=== PATIENT | male | born 1965 | race Two or more races ===

== ENCOUNTER 2016-10-29 08:13 | Inpatient (IN) | payer MEDICAID ==
[2016-10-29] VITALS (7 sets, daily range): BP systolic 116–139; BP diastolic 81–91
[~2016-10-29] VITALS: Ht 165.1 cm; Wt 54.4 kg
[2016-10-29] MEDS ORDERED: UNOBMED (08:15)
[2016-10-29] MEDS ORDERED: Tubing IV Cassette IV ONE (08:28)
[2016-10-29] MEDS ORDERED: DiphenhydrAMINE 50mg/ml Inj IM ONE (08:30)
[2016-10-29] MEDS ORDERED: Haloperidol 5mg/ml Inj IM ONE (08:30)
[2016-10-29] MEDS ORDERED: LORazepam Inj 2mg/ml 1ml IM ONE (08:30)
--- NOTE | 2016-10-29 10:12 | Emergency Room Report ---
History of Present Illness General Chief Complaint: Altered Level of Consciousness Source: EMS Present Illness HPI Patient was brought in from the streets. Apparently was acting inappropriately. They suspect some alcohol ingestion. Paramedics were able to get Accu-Chek of 63. They were unable to start an IV. They gave him some glucose solution of by mouth. He was uncooperative with them. His clothes were soaked with water or urine. No observed seizure or trauma. He refuses/is unable to answer any questions. Allergies: Coded Allergies: UNABLE TO ASSESS (Unverified , 10/29/16) Patient History Limited by: medical condition Past Medical History: see triage record Social History Narrative from [facility] Reviewed Nursing Documentation: PMH: Agreed, PSxH: Agreed Nursing Documentation-PMH Past Medical History: Deferred Review of Systems All Other Systems: limited Physical Exam Vital Signs Date Time Temp Pulse Resp B/P Pulse Ox O2 Delivery O2 Flow Rate FiO2 10/29/16 08:11 98.8 83 16 135/88 99 Room Air Sp02 EP Interpretation: reviewed, normal General Appearance: no apparent distress, other - dishevelled, keeps eyes closed, actively resisting exam, non-verbal, Stupor Head: normocephalic, atraumatic Eyes: bilateral eye PERRL, bilateral eye Scleral Injection ENT: moist mucus membranes - no lingual macerations Neck: no bony tend, other - he looks about but neck not supple - resists flexion Respiratory: chest non-tender, lungs clear, normal breath sounds Cardiovascular #1: regular rate, rhythm Cardiovascular #2: 2+ radial (R) Gastrointestinal: normal inspection, normal bowel sounds, non tender, no mass, non-distended Genitourinary: normal inspection Musculoskeletal: back normal, gait/station normal, normal range of motion Neurologic: responsive, motor strength/tone normal, DTRs symmetric Psychiatric: depressed affect Skin: warm/dry, rash - diffuse punctate lesions upper inner arms and trunk. Feet with water exposure and ulcerations balls, no sig erythema, other - sun exposure Procedures Central Line Central Line : Consent: Emergent Central Line Lumen: triple Maximal Sterile Barrier Tech: yes cap, yes mask, yes sterile gown, yes sterile gloves, yes large sterile sheet, yes hand hygiene, yes chlorhexidine prep Central Line Postion: femoral (R) Anesthesia: Lidocaine cc's of anesthesia: 2 Complications: none Central Line Post Position: sutured, good blood return Attempts: One Patient Tolerated: Well Complications: None Lumbar Puncture Consent: Emergent Location: L4-L5 Anesthesia: 1% Lidocaine Prep: bedadine Needle Size: 3 05/13 CSF: other - pink clearing = traumatic tap - OP = 7 cm, 4.5 ml obtained Post-Procedure: recumbent position Attempts: One Complications: none - traumatic tap Patient Tolerated: Well Medical Decision Making Diagnostic Impression: Primary Impression: Encephalopathy acute Additional Impressions: Sepsis Qualified Codes: A41.9 - Sepsis, unspecified organism UTI (urinary tract infection) Qualified Codes: N30.00 - Acute cystitis without hematuria Scabies ER Course The patient is febrile (initial temp repeated) and altered. He is uncooperative. The patient needs to be sedated in order to take care of him. He has no nuchal rigidity but resists flexion (resists most movement of his extremities) which makes meningitis less likely but needs to be excluded.. He will be evaluated for his fever and stupor. This will include a CT of the head , chest x-ray and urinalysis along with blood cultures lactate and other labs. The patient is not in distress, however, his abnormal mentation/encephalopathy is concerning. Accucheck 83 here. Labs significant for slightly high potassium and min elevation of creatinine. Lactate 2.2. Elevated WBC. Central line started as no other IV access. LP performed. Traumatic tap. CSF cleared. CSF against meningitis. Lab only performed analysis on tube 2. I requested tube 1 and tube 3 be evaluated for cell counts. The fact WBC and RBC clear to tube 2 suggests more blood contamination than meningitis. Patient needs isolation due to possible scabies. Admit med Dr. Roman. Laboratory Tests Test 10/29/16 09:44 10/29/16 09:55 10/29/16 12:00 10/29/16 13:20 Prothrombin Time 10.0 SEC (9.30-11.50) Prothrombin Time INR 1.0 (0.9-1.1) Total Creatine Kinase 309 U/L (38-174) H White Blood Count 11.6 K/UL (4.8-10.8) H Red Blood Count 4.67 M/UL (4.70-6.10) L Hemoglobin 14.7 G/DL (14.2-18.0) Hematocrit 43.5 % (42.0-52.0) Mean Corpuscular Volume 93 FL (80-99) Mean Corpuscular Hemoglobin 31.4 PG (27.0-31.0) H Mean Corpuscular Hemoglobin Concent 33.7 G/DL (32.0-36.0) Red Cell Distribution Width 13.8 % (11.6-14.8) Platelet Count 174 K/UL (150-450) Mean Platelet Volume 6.9 FL (6.5-10.1) Neutrophils (%) (Auto) % (45.0-75.0) Lymphocytes (%) (Auto) % (20.0-45.0) Monocytes (%) (Auto) % (1.0-10.0) Eosinophils (%) (Auto) % (0.0-3.0) Basophils (%) (Auto) % (0.0-2.0) Differential Total Cells Counted 100 Neutrophils % (Manual) 86 % (45-75) H Lymphocytes % (Manual) 9 % (20-45) L Monocytes % (Manual) 5 % (1-10) Eosinophils % (Manual) 0 % (0-3) Basophils % (Manual) 0 % (0-2) Band Neutrophils 0 % (0-8) Platelet Estimate Adequate Platelet Morphology Normal Red Blood Cell Morphology Normal Sodium Level 136 mEQ/L (135-145) Potassium Level 5.2 mEQ/L (3.4-4.9) H Chloride Level 89 mEQ/L (98-107) L Carbon Dioxide Level 20 mEQ/L (20-30) Anion Gap 27 (5-15) H Blood Urea Nitrogen 21 mg/dL (7-23) Creatinine 1.2 mg/dL (0.7-1.2) Estimate Glomerular Filtration Rate > 60 mL/min (>60) Glucose Level 82 mg/dL (74-106) Lactic Acid Level 2.20 mmol/L (0.66-2.22) 1.20 mmol/L (0.66-2.22) Calcium Level 9.2 mg/dL (8.6-10.2) Total Bilirubin 1.4 mg/dL (0.0-1.2) H Direct Bilirubin 0.2 mg/dL (0.1-0.3) Aspartate Amino Transferase (AST) 40 U/L (5-40) Alanine Aminotransferase (ALT) 13 U/L (3-41) Alkaline Phosphatase 85 U/L (40-129) Ammonia 40 umol/L (16-60) Troponin I < 0.30 ng/mL (<=0.30) Total Protein 8.6 g/dL (6.6-8.7) Albumin 4.9 g/dL (3.5-5.2) Globulin 3.7 g/dL Albumin/Globulin Ratio 1.3 (1.0-2.7) Salicylates Level < 1 mg/dL (10-30) L Acetaminophen Level < 10 ug/mL (10-30) L Serum Alcohol < 10 mg/dL Urine Opiates Screen Negative (NEGATIVE) Urine Barbiturates Screen Negative (NEGATIVE) Phencyclidine (PCP) Screen Negative (NEGATIVE) Urine Amphetamines Screen Negative (NEGATIVE) Urine Benzodiazepines Screen Negative (NEGATIVE) Urine Cocaine Screen Negative (NEGATIVE) Urine Marijuana (THC) Screen Negative (NEGATIVE) Test 10/29/16 14:44 10/29/16 17:55 10/30/16 05:15 CSF Appearance Clear CSF Color Light red CSF WBC 25 /CU MM (0-5) *H CSF RBC 3620 /CU MM CSF Neutrophils % 78 % CSF Lymphocytes % 17 % CSF Monocytes % 5 % CSF Crenated Cells 0 % CSF Glucose 81 mg/dL (50-80) H CSF Total Protein 35 mg/dL (15-45) Urine Color Pale yellow Urine Appearance Clear Urine pH 6.5 (4.5-8.0) Urine Specific [place] 1.010 (1.005-1.035) Urine Protein 2+ (NEGATIVE) H Urine Glucose (UA) Negative (NEGATIVE) Urine Ketones 3+ (NEGATIVE) H Urine Occult Blood 3+ (NEGATIVE) H Urine Nitrite Negative (NEGATIVE) Urine Bilirubin Negative (NEGATIVE) Urine Urobilinogen Normal MG/DL (0.0-1.0) Urine Leukocyte Esterase 2+ (NEGATIVE) H Urine RBC 2-4 /HPF (0 - 0) H Urine WBC 5-10 /HPF (0 - 0) H Urine Squamous Epithelial Cells None /LPF (NONE/OCC) Urine Bacteria Few /HPF (NONE) White Blood Count 8.2 K/UL (4.8-10.8) Red Blood Count 4.25 M/UL (4.70-6.10) L Hemoglobin 14.1 G/DL (14.2-18.0) L Hematocrit 39.8 % (42.0-52.0) L Mean Corpuscular Volume 94 FL (80-99) Mean Corpuscular Hemoglobin 33.1 PG (27.0-31.0) H Mean Corpuscular Hemoglobin Concent 35.3 G/DL (32.0-36.0) Red Cell Distribution Width 13.5 % (11.6-14.8) Platelet Count 166 K/UL (150-450) Mean Platelet Volume 8.8 FL (6.5-10.1) Neutrophils (%) (Auto) 79.2 % (45.0-75.0) H Lymphocytes (%) (Auto) 12.3 % (20.0-45.0) L Monocytes (%) (Auto) 8.2 % (1.0-10.0) Eosinophils (%) (Auto) 0.0 % (0.0-3.0) Basophils (%) (Auto) 0.2 % (0.0-2.0) Sodium Level 143 mEQ/L (135-145) Potassium Level 3.8 mEQ/L (3.4-4.9) Chloride Level 101 mEQ/L (98-107) Carbon Dioxide Level 24 mEQ/L (20-30) Anion Gap 18 (5-15) H Blood Urea Nitrogen 18 mg/dL (7-23) Creatinine 1.2 mg/dL (0.7-1.2) Estimate Glomerular Filtration Rate > 60 mL/min (>60) Glucose Level 148 mg/dL (74-106) H Hemoglobin A1c 4.5 % (< 6.0) Uric Acid 8.1 mg/dL (3.0-7.5) H Calcium Level 8.9 mg/dL (8.6-10.2) Phosphorus Level 3.4 mg/dL (2.5-4.8) Magnesium Level 2.1 mg/dL (1.7-2.5) Total Bilirubin 1.0 mg/dL (0.0-1.2) Gamma Glutamyl Transpeptidase 43 U/L (8-61) Aspartate Amino Transferase (AST) 23 U/L (5-40) Alanine Aminotransferase (ALT) 10 U/L (3-41) Alkaline Phosphatase 71 U/L (40-129) Total Creatine Kinase 217 U/L (38-174) H C-Reactive Protein, Quantitative 3.3 mg/dL (< 0.5) H Pro-B-Type Natriuretic Peptide 2842 pg/mL (0-125) H Total Protein 7.4 g/dL (6.6-8.7) Albumin 4.2 g/dL (3.5-5.2) Globulin 3.2 g/dL Albumin/Globulin Ratio 1.3 (1.0-2.7) Vitamin B12 Level Pending Folate Pending Thyroid Stimulating Hormone (TSH) 3.370 uIU/mL (0.300-4.500) EKG Diagnostic Results Rate: tachycardiac ST Segments: no acute changes Rhythm Strip Diag. Results EP Interpretation: yes Rhythm: no PVC's, no ectopy, other - ST Chest X-Ray Diagnostic Results Chest X-Ray Ordered: Yes # of Views/Limited/Complete: 1 View Interpretation: no consolidation, no effusion, no pneumothorax, no acute cardiopulmonary disease Indication: Other - ALOC Impression: No acute disease Date Electronically Signed: Oct 29, 2016 Time Electronically Signed: 10:11 Interpreting ER Physician: Jonny CT/MRI/US Diagnostic Results CT/MRI/US Diagnostic Results : Imaging Test Ordered: head Impression Impression: Marked age-related changes. Negative for acute intracranial bleed or mass effect Evidence of right periorbital and right high parietal scalp soft tissue trauma ( This is not apparent clinically - de) Last Vital Signs Date Time Temp Pulse Resp B/P Pulse Ox O2 Delivery O2 Flow Rate FiO2 10/30/16 04:00 97.7 95 16 137/94 100 Room Air Status: improved Disposition: ADMITTED INPATIENT Condition: Serious Referrals: NOT CHOSEN IPA/,REFERRING (PCP) Franco Fuller M.D. Oct 29, 2016 10:12
[2016-10-29 10:40] LABS: MEAN CORPUSCULAR HEMOGLOBIN 31.4 PG (27.0-31.0); MEAN CORPUSCULAR HGB CONC 33.7 G/DL (32.0-36.0); MEAN CORPUSCULAR VOLUME 93 FL (80-99); MEAN PLATELET VOLUME 6.9 FL (6.5-10.1); PLATELET COUNT 174 K/UL (150-450); RED BLOOD COUNT 4.67 M/UL (4.70-6.10); RED CELL DISTRIBUTION WIDTH 13.8 % (11.6-14.8); WHITE BLOOD COUNT 11.6 K/UL (4.8-10.8)
[2016-10-29 10:53] LABS: AMMONIA 40 umol/L (16-60)
[2016-10-29 10:55] LABS: TROPONIN I < 0.30 ng/mL (<=0.30)
[2016-10-29 10:59] LABS: ACETAMINOPHEN < 10 ug/mL (10-30); ALANINE AMINOTRANSFERASE 13 U/L (3-41); ALBUMIN/GLOBULIN RATIO 1.3 (1.0-2.7); ALCOHOL < 10 mg/dL; ANION GAP 27 (5-15); ASPARTATE AMINO TRANSFERASE 40 U/L (5-40); CALCIUM 9.2 mg/dL (8.6-10.2); CARBON DIOXIDE 20 mEQ/L (20-30); CHLORIDE 89 mEQ/L (98-107); CREATININE 1.2 mg/dL (0.7-1.2); GLOMERULAR FILTRATION RATE > 60 mL/min (>60); HEMOLYSIS 104; POTASSIUM 5.2 mEQ/L (3.4-4.9); SODIUM 136 mEQ/L (135-145); TOTAL PROTEIN 8.6 g/dL (6.6-8.7)
[2016-10-29 11:02] LABS: REFLEX LACTIC ACID YES OR NO YES
[2016-10-29 11:13] LABS: BILIRUBIN,DIRECT 0.2 mg/dL (0.1-0.3)
[2016-10-29 11:49] LABS: BAND NEUTROPHILS % (MANUAL) 0 % (0-8); BASOPHILS % (MANUAL) 0 % (0-2); EOSINOPHILS % (MANUAL) 0 % (0-3); LYMPHOCYTES % (MANUAL) 9 % (20-45); NEUTROPHILS % (MANUAL) 86 % (45-75); PLATELET ESTIMATE ADEQUATE; PLATELET MORPHOLOGY NORMAL; TOTAL CELLS COUNTED 100
[2016-10-29] MEDS ORDERED: Solu-MEDROL 125mg Inj IVP ONE (12:00)
[2016-10-29] MEDS ORDERED: Cefepime HCl 2 GM in D5W 110 ML IVPB ONE (12:00)
[2016-10-29] MEDS ORDERED: Lidocaine 1% Plain 30 ml INJ ONE (12:04)
[2016-10-29] MEDS ORDERED: Lidocaine 1% MPF 10mg/ml 5ml INJ ONE (12:15)
--- NOTE | 2016-10-29 12:23 | Diagnostic Imaging Report ---
Indication: Shortness of breath Technique: One view of the chest Comparison: None Findings: Lungs and pleural spaces are clear. Heart size is normal. Calcifications are seen in the right lung apex. There is unusual thickening of the cortex of the right first rib. Impression: No acute process Postinflammatory calcifications in the right lung apex Unusual thickening of the cortex of the right first rib, significance uncertain
[2016-10-29] MEDS ORDERED: Cefepime 2gm ONE (12:47)
[2016-10-29] MEDS ORDERED: Tubing IV Secondary IV ONE (12:47)
[2016-10-29] MEDS ORDERED: NS 110 ML ONE (12:47)
--- NOTE | 2016-10-29 13:37 | Diagnostic Imaging Report ---
Indications: Altered level of consciousness Technique: Spiral acquisitions obtained through the brain. Angled axial and coronal 5 x 5 mm slices were reconstructed. Total dose length product 1453 mGycm. CTDI vol(s) 70 mGy. Dose reduction achieved using automated exposure control Comparison: None Findings: No acute hemorrhage or edema. No mass effect or midline shift. There is age-related enlargement of the ventricles and extra-axial CSF spaces. In particular, there is marked dilatation, presumably on extra-axial bases, of the right lateral ventricle. There is right ureteral and right high parietal soft tissue swelling. Normal mcfarland-white differentiation. Impression: Marked age-related changes. Negative for acute intracranial bleed or mass effect Evidence of right periorbital and right high parietal scalp soft tissue trauma The CT scanner at [facility] is accredited by the [employer] and the scans are performed using protocols designed to limit radiation exposure to as low as reasonably achievable to attain images of sufficient resolution adequate for diagnostic evaluation.
[2016-10-29 15:27] LABS: GLUCOSE,CSF 81 mg/dL (50-80)
--- NOTE | 2016-10-29 15:53 | Consultation ---
Consult Note Assessment/Plan dehydration- Encephalopathy- ? Sepsis Scabies Plan: Hydrate Ua monitor labs and renal aparameters IZABELLA TURCIOS Oct 29, 2016 15:53
[2016-10-29 16:12] LABS: APPEARANCE,CSF CLEAR; COLOR,CSF COLORLESS
[2016-10-29 16:14] LABS: WHITE BLOOD CELL,CSF 1 /CU MM (0-5)
--- NOTE | 2016-10-29 16:30 | Infectious Diseases Prog Note ---
Assessment/Plan Problems: (1) Sepsis Assessment & Plan: will start vancomycin and ceftriaxon , and send blood culture (2) Altered mental status Assessment & Plan: rule out meningitis, S/P LP, await CSF fluids culture, continue vancomycin with ceftriaxone empirically (3) Scabies Assessment & Plan: will give Elimite Subjective Allergies: Coded Allergies: UNABLE TO ASSESS (Unverified , 10/29/16) Objective Vital Signs Last 24 Hour Vital Signs Date Time Temp Pulse Resp B/P Pulse Ox O2 Delivery O2 Flow Rate FiO2 10/29/16 15:00 100.7 94 18 116/81 99 Room Air 10/29/16 14:00 106 18 129/82 96 Room Air 10/29/16 12:30 108 18 129/81 100 Room Air 10/29/16 10:00 111 16 139/88 100 Room Air 10/29/16 08:45 100.9 99 16 120/88 100 Room Air 10/29/16 08:11 98.8 83 16 135/88 99 Room Air Height (Feet): 5 Height (Inches): 5.00 Weight (Pounds): 120 Laboratory Tests Test 10/29/16 09:44 10/29/16 09:55 10/29/16 12:00 10/29/16 13:20 Prothrombin Time 10.0 SEC (9.30-11.50) Prothromb Time International Ratio 1.0 (0.9-1.1) Total Creatine Kinase 309 U/L (38-174) H White Blood Count 11.6 K/UL (4.8-10.8) H Red Blood Count 4.67 M/UL (4.70-6.10) L Hemoglobin 14.7 G/DL (14.2-18.0) Hematocrit 43.5 % (42.0-52.0) Mean Corpuscular Volume 93 FL (80-99) Mean Corpuscular Hemoglobin 31.4 PG (27.0-31.0) H Mean Corpuscular Hemoglobin Concent 33.7 G/DL (32.0-36.0) Red Cell Distribution Width 13.8 % (11.6-14.8) Platelet Count 174 K/UL (150-450) Mean Platelet Volume 6.9 FL (6.5-10.1) Neutrophils (%) (Auto) % (45.0-75.0) Lymphocytes (%) (Auto) % (20.0-45.0) Monocytes (%) (Auto) % (1.0-10.0) Eosinophils (%) (Auto) % (0.0-3.0) Basophils (%) (Auto) % (0.0-2.0) Differential Total Cells Counted 100 Neutrophils % (Manual) 86 % (45-75) H Lymphocytes % (Manual) 9 % (20-45) L Monocytes % (Manual) 5 % (1-10) Eosinophils % (Manual) 0 % (0-3) Basophils % (Manual) 0 % (0-2) Band Neutrophils 0 % (0-8) Platelet Estimate Adequate Platelet Morphology Normal Red Blood Cell Morphology Normal Sodium Level 136 mEQ/L (135-145) Potassium Level 5.2 mEQ/L (3.4-4.9) H Chloride Level 89 mEQ/L (98-107) L Carbon Dioxide Level 20 mEQ/L (20-30) Anion Gap 27 (5-15) H Blood Urea Nitrogen 21 mg/dL (7-23) Creatinine 1.2 mg/dL (0.7-1.2) Estimat Glomerular Filtration Rate > 60 mL/min (>60) Glucose Level 82 mg/dL (74-106) Lactic Acid Level 2.20 mmol/L (0.66-2.22) 1.20 mmol/L (0.66-2.22) Calcium Level 9.2 mg/dL (8.6-10.2) Total Bilirubin 1.4 mg/dL (0.0-1.2) H Direct Bilirubin 0.2 mg/dL (0.1-0.3) Aspartate Amino Transf (AST/SGOT) 40 U/L (5-40) Alanine Aminotransferase (ALT/SGPT) 13 U/L (3-41) Alkaline Phosphatase 85 U/L (40-129) Ammonia 40 umol/L (16-60) Troponin I < 0.30 ng/mL (<=0.30) Total Protein 8.6 g/dL (6.6-8.7) Albumin 4.9 g/dL (3.5-5.2) Globulin 3.7 g/dL Albumin/Globulin Ratio 1.3 (1.0-2.7) Salicylates Level < 1 mg/dL (10-30) L Acetaminophen Level < 10 ug/mL (10-30) L Serum Alcohol < 10 mg/dL Urine Opiates Screen Negative (NEGATIVE) Urine Barbiturates Screen Negative (NEGATIVE) Phencyclidine (PCP) Screen Negative (NEGATIVE) Urine Amphetamines Screen Negative (NEGATIVE) Urine Benzodiazepines Screen Negative (NEGATIVE) Urine Cocaine Screen Negative (NEGATIVE) Urine Marijuana (THC) Screen Negative (NEGATIVE) Test 10/29/16 14:44 CSF Appearance Clear CSF Color Colorless CSF WBC 1 /CU MM (0-5) CSF RBC 415 /CU MM CSF Neutrophils % % CSF Lymphocytes % % CSF Monocytes % % CSF Crenated Cells % CSF Glucose 81 mg/dL (50-80) H CSF Total Protein 35 mg/dL (15-45) Current Medications Medications (Trade) Dose Ordered Sig/Gi Route PRN Reason Start Time Stop Time Status Last Admin Dose Admin Dextrose/Sodium Chloride (D5ns) 1,000 ml @ 50 mls/hr Q20H IV 10/29/16 16:00 11/28/16 15:59 UNV Sodium Chloride 1,000 ml @ 300 mls/hr Q3H20M IV 10/29/16 08:30 11/28/16 08:29 10/29/16 14:15 Sodium Chloride 1,000 ml @ 300 mls/hr Q3H20M IV 10/29/16 11:15 11/28/16 11:14 10/29/16 12:30 Jair Cohen M.D. Oct 29, 2016 16:30
[2016-10-29] MEDS ORDERED: Acetaminophen 650 MG SUPP RECTAL PRN (17:30)
[2016-10-29 18:22] LABS: APPEARANCE,URINE CLEAR; KETONES,URINE 3+ (NEGATIVE); LEUKOCYTE ESTERASE ,URINE 2+ (NEGATIVE); NITRITE,URINE NEGATIVE (NEGATIVE); PH,URINE 6.5 (4.5-8.0); PROTEIN,URINE 2+ (NEGATIVE); UROBILINOGEN,URINE NORMAL MG/DL (0.0-1.0)
[2016-10-29] MEDS: Vancomycin 1.25 GM in D5W 275 ML IVPB SCH (18:28)
[2016-10-29] MEDS: D5NS 1,000 ML IV SCH (18:29)
[2016-10-29 18:51] LABS: APPEARANCE,CSF CLEAR
[2016-10-29 18:53] LABS: COLOR,CSF LIGHT RED
[2016-10-29 18:57] LABS: LYMPHOCYTES,CSF 17 %; WHITE BLOOD CELL,CSF 25 /CU MM (0-5)
[2016-10-29 19:04] LABS: BACTERIA,URINE FEW /HPF
[2016-10-29] MEDS: cefTRIAXone 2 GM in D5W 110 ML IVPB SCH (20:06)
[2016-10-30] VITALS: BP 131/88
[2016-10-30 04:00] VITALS: BP 137/94
[2016-10-30 07:13] LABS: BASOPHILS % (AUTO) 0.2 % (0.0-2.0); LYMPHOCYTES % (AUTO) 12.3 % (20.0-45.0); MEAN CORPUSCULAR HEMOGLOBIN 33.1 PG (27.0-31.0); MEAN CORPUSCULAR HGB CONC 35.3 G/DL (32.0-36.0); MEAN CORPUSCULAR VOLUME 94 FL (80-99); MEAN PLATELET VOLUME 8.8 FL (6.5-10.1); MONOCYTES % (AUTO) 8.2 % (1.0-10.0); NEUTROPHILS % (AUTO) 79.2 % (45.0-75.0); PLATELET COUNT 166 K/UL (150-450); RED BLOOD COUNT 4.25 M/UL (4.70-6.10); RED CELL DISTRIBUTION WIDTH 13.5 % (11.6-14.8); WHITE BLOOD COUNT 8.2 K/UL (4.8-10.8)
[2016-10-30 07:17] LABS: HEMOGLOBIN A1C 4.5 % (< 6.0)
[2016-10-30 07:29] LABS: ALANINE AMINOTRANSFERASE 10 U/L (3-41); ALBUMIN/GLOBULIN RATIO 1.3 (1.0-2.7); ANION GAP 18 (5-15); ASPARTATE AMINO TRANSFERASE 23 U/L (5-40); CALCIUM 8.9 mg/dL (8.6-10.2); CARBON DIOXIDE 24 mEQ/L (20-30); CHLORIDE 101 mEQ/L (98-107); CREATININE 1.2 mg/dL (0.7-1.2); CRP QUANT 3.3 mg/dL (< 0.5); GLOMERULAR FILTRATION RATE > 60 mL/min (>60); HEMOLYSIS 4; MAGNESIUM 2.1 mg/dL (1.7-2.5); PHOSPHORUS 3.4 mg/dL (2.5-4.8); POTASSIUM 3.8 mEQ/L (3.4-4.9); SODIUM 143 mEQ/L (135-145); TOTAL PROTEIN 7.4 g/dL (6.6-8.7); URIC ACID 8.1 mg/dL (3.0-7.5)
[2016-10-30 08:19] VITALS: BP 119/84
[2016-10-30] MEDS: cefTRIAXone 2 GM in D5W 110 ML IVPB SCH ×2 (08:45→20:06)
[2016-10-30] MEDS ORDERED: Thiamine HCl 100 MG in D5W 55 ML IVPB SCH (08:45)
[2016-10-30] MEDS ORDERED: Thiamine 100mg tab ORAL SCH (09:00)
--- NOTE | 2016-10-30 09:39 | Wound Care Consultation ---
Wound Assessment Wound Assessment #1: Wound Present on Admission: Yes New Wound: No Status Change of Wound: No Wound Location Body Site Modif: left Wound Location Body Site: elbow Wound Type: pressure ulcer Iain Test: Does not Iain Pressure Ulcer Stage: IV/unstageable Wound Thickness: Full Thickness Wound Length: 2.0 Wound Width: 2.0 Wound Depth: 0.3 Percent of Wound [place]/Red: 90 Percent of Wound Purple/Maroon: 10 Wound Drainage Description: Serosanguineous Wound Drainage Amount: Moderate Wound Drainage Odor: None/Absent Tissue Surrounding Wound: Erythemic Wound General Appearance: Reddened Wound Assessment #2: Wound Number: #2 Wound Present on Admission: Yes New Wound: No Status Change of Wound: No Wound Location Body Site Modif: left, lateral Wound Location Body Site: malleolus/ankle Wound Type: pressure ulcer Iain Test: Does not Iain Pressure Ulcer Stage: deep tissue injury - suspected , also noted site with full thickness scar tissue. Wound Thickness: Full Thickness Wound Length: 1.0 Wound Width: 1.0 Wound Depth: utd Percent of Wound Purple/Maroon: 100 - scattered Wound Drainage Amount: None Wound Drainage Odor: None/Absent Tissue Surrounding Wound: Intact Wound General Appearance: Reddened - maroon. Wound Assessment #3: Wound Number: #3 Wound Present on Admission: Yes New Wound: No Status Change of Wound: No Wound Location Body Site Modif: right, lateral Wound Location Body Site: malleolus/ankle Wound Type: pressure ulcer Iain Test: Does not Iain Pressure Ulcer Stage: II Wound Thickness: Partial Thickness Wound Length: 1.0 Wound Width: 1.0 Wound Depth: 0.1 Percent of Wound [place]/Red: 100 Wound Drainage Description: Serosanguineous Wound Drainage Amount: Scant Wound Drainage Odor: None/Absent Tissue Surrounding Wound: Erythemic Wound General Appearance: Reddened Wound Assessment #4: Wound Number: #4 Wound Present on Admission: Yes New Wound: No Status Change of Wound: No Wound Location Body Site Modif: left, plantar - aspect of foot. Wound Location Body Site: foot Wound Type: pressure ulcer Iain Test: Does not Iain Pressure Ulcer Stage: IV/unstageable Wound Thickness: Full Thickness Wound Length: 2.0 Wound Width: 1.0 Wound Depth: utd Percent of Wound Black/Brown: 100 Wound Drainage Description: Serosanguineous Wound Drainage Amount: Scant Wound Drainage Odor: None/Absent Tissue Surrounding Wound: Indurated Wound General Appearance: Reddened, Blackened, Necrotic Wound Comment #1 Left elbow pressure ulcer stage IV. #2 Left lateral malleolus suspected deep tissue injury. #3 Right lateral malleolus stage II pressure ulcer. #4 Left plantar aspect of foot unstageable pressure ulcer. Recommendation. -Local wound care as ordered. -Apply low air loss SPR mattress. -Turn and reposition. -Optimize nutrition. -Heel protectors. -Keep clean and dry. -Avoid shear and friction. -Offload heels and feet. -Assess and notify MD for any further changes of condition to skin. CARMELO JOLLY Oct 30, 2016 09:39
[2016-10-30 11:49] VITALS: BP 119/80
--- NOTE | 2016-10-30 14:10 | General Progress Note ---
Assessment/Plan Status: stable - from renal stand Assessment/Plan status: Dehydration- Encephalopathy- ? Sepsis UTI Scabies Plan: Hydrate Ua monitor labs and renal aparameters per neuro Subjective ROS Limited/Unobtainable: No Constitutional: Reports: other - non verbal Allergies: Coded Allergies: UNABLE TO ASSESS (Unverified , 10/29/16) Objective Last 24 Hour Vital Signs Date Time Temp Pulse Resp B/P Pulse Ox O2 Delivery O2 Flow Rate FiO2 10/30/16 11:49 97.9 88 19 119/80 97 Room Air 10/30/16 08:19 98.2 95 20 119/84 98 Room Air 10/30/16 04:00 97.7 95 16 137/94 100 Room Air 10/30/16 00:00 97.5 98 18 131/88 97 Room Air 10/29/16 19:55 98.4 103 17 128/85 98 Room Air 10/29/16 18:35 98.4 10/29/16 16:29 100.9 100 20 121/91 94 Room Air 10/29/16 15:38 100.7 94 18 116/81 99 Room Air 10/29/16 15:00 100.7 94 18 116/81 99 Room Air Intake and Output 10/29/16 10/30/16 19:00 07:00 Intake Total 2110 ml 660 ml Output Total 450 ml 300 ml Balance 1660 ml 360 ml Intake Oral 0 ml IV Total 2110 ml 660 ml Output Urine Total 450 ml 300 ml Laboratory Tests 10/29/16 14:44: CSF Appearance Clear, CSF Color Light red, CSF WBC 25*H, CSF RBC 3620, CSF Neutrophils % 78, CSF Lymphocytes % 17, CSF Monocytes % 5, CSF Crenated Cells 0 , CSF Glucose 81H, CSF Total Protein 35 10/29/16 17:55: Urine Color Pale yellow, Urine Appearance Clear, Urine pH 6.5, Urine Specific [place] 1.010, Urine Protein 2+H, Urine Glucose (UA) Negative, Urine Ketones 3+H , Urine Occult Blood 3+H, Urine Nitrite Negative, Urine Bilirubin Negative, Urine Urobilinogen Normal, Urine Leukocyte Esterase 2+H, Urine RBC 2-4H, Urine WBC 5-10H, Urine Squamous Epithelial Cells None, Urine Bacteria Few 10/30/16 05:15: White Blood Count 8.2, Red Blood Count 4.25L, Hemoglobin 14.1L, Hematocrit 39.8L , Mean Corpuscular Volume 94, Mean Corpuscular Hemoglobin 33.1H, Mean Corpuscular Hemoglobin Concent 35.3, Red Cell Distribution Width 13.5, Platelet Count 166, Mean Platelet Volume 8.8, Neutrophils (%) (Auto) 79.2H, Lymphocytes ( %) (Auto) 12.3L, Monocytes (%) (Auto) 8.2, Eosinophils (%) (Auto) 0.0, Basophils (%) (Auto) 0.2, Sodium Level 143, Potassium Level 3.8, Chloride Level 101, Carbon Dioxide Level 24, Anion Gap 18H, Blood Urea Nitrogen 18, Creatinine 1.2, Estimat Glomerular Filtration Rate > 60, Glucose Level 148H, Hemoglobin A1c 4.5, Uric Acid 8.1H, Calcium Level 8.9, Phosphorus Level 3.4, Magnesium Level 2.1, Total Bilirubin 1.0, Gamma Glutamyl Transpeptidase 43, Aspartate Amino Transf (AST/SGOT) 23, Alanine Aminotransferase (ALT/SGPT) 10, Alkaline Phosphatase 71, Total Creatine Kinase 217H, C-Reactive Protein, Quantitative 3.3H, Pro-B-Type Natriuretic Peptide 2842H, Total Protein 7.4, Albumin 4.2, Globulin 3.2, Albumin/Globulin Ratio 1.3, Vitamin B12 Level 330, Folate [Pending ], Thyroid Stimulating Hormone (TSH) 3.370 Height (Feet): 5 Height (Inches): 5.00 Weight (Pounds): 120 General Appearance: no apparent distress Objective no change IZABELLA TURCIOS Oct 30, 2016 14:10
[2016-10-30] MEDS: D5NS 1,000 ML IV SCH (15:15)
[2016-10-30 16:18] VITALS: BP 126/85
--- NOTE | 2016-10-30 17:33 | Infectious Diseases Prog Note ---
Assessment/Plan Problems: (1) Sepsis Assessment & Plan: continue vancomycin and ceftriaxon empirically , await blood culture (2) Altered mental status Assessment & Plan: improving. rule out meningitis, S/P LP, await CSF fluids culture, continue vancomycin with ceftriaxone empirically for now (3) Scabies Assessment & Plan: S/P two courses of Elimite (4) Elbow mass Assessment & Plan: suspect abscess S/P auto drain , on wide spectrum abx Subjective ROS Limited/Unobtainable: Yes Allergies: Coded Allergies: UNABLE TO ASSESS (Unverified , 10/29/16) Subjective he was awake and alert , [place] speaker, not in distress Objective Vital Signs Last 24 Hour Vital Signs Date Time Temp Pulse Resp B/P Pulse Ox O2 Delivery O2 Flow Rate FiO2 10/30/16 16:18 97.5 80 20 126/85 96 Room Air 10/30/16 11:49 97.9 88 19 119/80 97 Room Air 10/30/16 08:19 98.2 95 20 119/84 98 Room Air 10/30/16 04:00 97.7 95 16 137/94 100 Room Air 10/30/16 00:00 97.5 98 18 131/88 97 Room Air 10/29/16 19:55 98.4 103 17 128/85 98 Room Air 10/29/16 18:35 98.4 Height (Feet): 5 Height (Inches): 5.00 Weight (Pounds): 120 General Appearance: WD/WN, no acute distress HEENT: normocephalic, anicteric Respiratory/Chest: chest wall non-tender, lungs clear, normal breath sounds, no respiratory distress, no accessory muscle use Cardiovascular: normal peripheral pulses, normal rate, regular rhythm, no gallop/murmur, no JVD Abdomen: normal bowel sounds, soft, non tender, no organomegaly, non distended , no mass Extremities: no cyanosis, no clubbing Skin: no rash, ulcers Microbiology Date/Time Source Procedure Growth Status 10/29/16 14:44 Cerebral Spinal Fluid Gram Stain - Final Resulted 10/29/16 14:44 Cerebral Spinal Fluid CSF Culture - Preliminary NO GROWTH Resulted Laboratory Tests Test 10/29/16 17:55 10/30/16 05:15 Urine Color Pale yellow Urine Appearance Clear Urine pH 6.5 (4.5-8.0) Urine Specific Armstrong 1.010 (1.005-1.035) Urine Protein 2+ (NEGATIVE) H Urine Glucose (UA) Negative (NEGATIVE) Urine Ketones 3+ (NEGATIVE) H Urine Occult Blood 3+ (NEGATIVE) H Urine Nitrite Negative (NEGATIVE) Urine Bilirubin Negative (NEGATIVE) Urine Urobilinogen Normal MG/DL (0.0-1.0) Urine Leukocyte Esterase 2+ (NEGATIVE) H Urine RBC 2-4 /HPF (0 - 0) H Urine WBC 5-10 /HPF (0 - 0) H Urine Squamous Epithelial Cells None /LPF (NONE/OCC) Urine Bacteria Few /HPF (NONE) White Blood Count 8.2 K/UL (4.8-10.8) Red Blood Count 4.25 M/UL (4.70-6.10) L Hemoglobin 14.1 G/DL (14.2-18.0) L Hematocrit 39.8 % (42.0-52.0) L Mean Corpuscular Volume 94 FL (80-99) Mean Corpuscular Hemoglobin 33.1 PG (27.0-31.0) H Mean Corpuscular Hemoglobin Concent 35.3 G/DL (32.0-36.0) Red Cell Distribution Width 13.5 % (11.6-14.8) Platelet Count 166 K/UL (150-450) Mean Platelet Volume 8.8 FL (6.5-10.1) Neutrophils (%) (Auto) 79.2 % (45.0-75.0) H Lymphocytes (%) (Auto) 12.3 % (20.0-45.0) L Monocytes (%) (Auto) 8.2 % (1.0-10.0) Eosinophils (%) (Auto) 0.0 % (0.0-3.0) Basophils (%) (Auto) 0.2 % (0.0-2.0) Sodium Level 143 mEQ/L (135-145) Potassium Level 3.8 mEQ/L (3.4-4.9) Chloride Level 101 mEQ/L (98-107) Carbon Dioxide Level 24 mEQ/L (20-30) Anion Gap 18 (5-15) H Blood Urea Nitrogen 18 mg/dL (7-23) Creatinine 1.2 mg/dL (0.7-1.2) Estimat Glomerular Filtration Rate > 60 mL/min (>60) Glucose Level 148 mg/dL (74-106) H Hemoglobin A1c 4.5 % (< 6.0) Uric Acid 8.1 mg/dL (3.0-7.5) H Calcium Level 8.9 mg/dL (8.6-10.2) Phosphorus Level 3.4 mg/dL (2.5-4.8) Magnesium Level 2.1 mg/dL (1.7-2.5) Total Bilirubin 1.0 mg/dL (0.0-1.2) Gamma Glutamyl Transpeptidase 43 U/L (8-61) Aspartate Amino Transf (AST/SGOT) 23 U/L (5-40) Alanine Aminotransferase (ALT/SGPT) 10 U/L (3-41) Alkaline Phosphatase 71 U/L (40-129) Total Creatine Kinase 217 U/L (38-174) H C-Reactive Protein, Quantitative 3.3 mg/dL (< 0.5) H Pro-B-Type Natriuretic Peptide 2842 pg/mL (0-125) H Total Protein 7.4 g/dL (6.6-8.7) Albumin 4.2 g/dL (3.5-5.2) Globulin 3.2 g/dL Albumin/Globulin Ratio 1.3 (1.0-2.7) Vitamin B12 Level 330 pg/mL (211-946) Folate Pending Thyroid Stimulating Hormone (TSH) 3.370 uIU/mL (0.300-4.500) Current Medications Medications (Trade) Dose Ordered Sig/Gi Route PRN Reason Start Time Stop Time Status Last Admin Dose Admin Acetaminophen (Tylenol) 650 mg Q4H PRN RECTAL Fever/Headache/Mild Pain 10/29/16 17:30 11/28/16 17:29 Ceftriaxone Sodium/Dextrose (Rocephin/D5W) 110 ml @ 220 mls/hr Q12HR IVPB 10/29/16 20:00 11/05/16 19:59 10/30/16 08:45 Dextrose (Dextrose 50%) STAT PRN IV Hypoglycemia 10/29/16 17:30 11/28/16 17:29 Dextrose/Sodium Chloride 1,000 ml @ 50 mls/hr Q20H IV 10/29/16 18:00 11/28/16 17:59 10/30/16 15:15 Vancomycin HCl 1.25 gm/Dextrose 275 ml @ 183.708 mls/hr Q24H IVPB 10/29/16 18:00 11/03/16 17:59 10/29/16 18:28 Jair Cohen M.D. Oct 30, 2016 17:33
[2016-10-30] MEDS: Vancomycin 1.25 GM in D5W 275 ML IVPB SCH (18:03)
--- NOTE | 2016-10-30 18:49 | General Progress Note ---
Assessment/Plan Assessment/Plan Assessment - resolving AMS - resolved abnormal bili - Scabies - dehydration Recommendation - IVF - supportive care - PO diet - OOB Subjective Allergies: Coded Allergies: UNABLE TO ASSESS (Unverified , 10/29/16) Subjective ATSP for elevated bilirubin patient seen, chart reviewed pt not willing or able to answer questions does give me his name bili now normal Objective Last 24 Hour Vital Signs Date Time Temp Pulse Resp B/P Pulse Ox O2 Delivery O2 Flow Rate FiO2 10/30/16 16:18 97.5 80 20 126/85 96 Room Air 10/30/16 11:49 97.9 88 19 119/80 97 Room Air 10/30/16 08:19 98.2 95 20 119/84 98 Room Air 10/30/16 04:00 97.7 95 16 137/94 100 Room Air 10/30/16 00:00 97.5 98 18 131/88 97 Room Air 10/29/16 19:55 98.4 103 17 128/85 98 Room Air Intake and Output 10/29/16 10/30/16 19:00 07:00 Intake Total 2110 ml 660 ml Output Total 450 ml 300 ml Balance 1660 ml 360 ml Intake Oral 0 ml IV Total 2110 ml 660 ml Output Urine Total 450 ml 300 ml Laboratory Tests 10/30/16 05:15: White Blood Count 8.2, Red Blood Count 4.25L, Hemoglobin 14.1L, Hematocrit 39.8L , Mean Corpuscular Volume 94, Mean Corpuscular Hemoglobin 33.1H, Mean Corpuscular Hemoglobin Concent 35.3, Red Cell Distribution Width 13.5, Platelet Count 166, Mean Platelet Volume 8.8, Neutrophils (%) (Auto) 79.2H, Lymphocytes ( %) (Auto) 12.3L, Monocytes (%) (Auto) 8.2, Eosinophils (%) (Auto) 0.0, Basophils (%) (Auto) 0.2, Sodium Level 143, Potassium Level 3.8, Chloride Level 101, Carbon Dioxide Level 24, Anion Gap 18H, Blood Urea Nitrogen 18, Creatinine 1.2, Estimat Glomerular Filtration Rate > 60, Glucose Level 148H, Hemoglobin A1c 4.5, Uric Acid 8.1H, Calcium Level 8.9, Phosphorus Level 3.4, Magnesium Level 2.1, Total Bilirubin 1.0, Gamma Glutamyl Transpeptidase 43, Aspartate Amino Transf (AST/SGOT) 23, Alanine Aminotransferase (ALT/SGPT) 10, Alkaline Phosphatase 71, Total Creatine Kinase 217H, C-Reactive Protein, Quantitative 3.3H, Pro-B-Type Natriuretic Peptide 2842H, Total Protein 7.4, Albumin 4.2, Globulin 3.2, Albumin/Globulin Ratio 1.3, Vitamin B12 Level 330, Folate [Pending ], Thyroid Stimulating Hormone (TSH) 3.370 Height (Feet): 5 Height (Inches): 5.00 Weight (Pounds): 120 Objective man , NAD NCAT supple CTA RRR Soft NT ND No edema CHAD BRICENO Oct 30, 2016 18:49
[2016-10-30] MEDS ORDERED: Thiamine HCl 100 MG in D5W 55 ML IVPB STA (20:14)
--- NOTE | 2016-10-30 20:14 | Consultation ---
Consult Note Consult Note NEUROLOGY CONSULTATION: Full note dictated #[id number] Mr. Jai Pozo is a 51 year old ( 1965), RH, HM who has a PH of hypertension, depression, alcoholism, and homelessness. He was brought into the [facility] on 10/29/16 by paramedics when he was found on the streets behaving in an unusual manner and with his clothes soiled with urine. When he came in he was brought in as a Frank Oneil. ON EXAM: Very guarded and paranoid. Oriented to self only. Global cerebral dysfunction versus negativism. Trace left VII central Generally weak with poor effort but moves all 4s. LP - Hemorrhagic with no signs of infection B12 level low at 330 Urine c/w infection. IMPRESSION: Resolving encephalopathy due to alcohol withdrawal and infection superimposed on old psychiatric illness and or alcoholic dementia. REC: Therapeutic bath! Rx of infection. B 12 - 1000 mcg SC daily x 3 days and then monthly. Thiamine 100 mg IV. Mobilize with PT/OT. Safe living environment. Lilian Montes M.D., M.S.P.H. LILIAN MONTES Oct 30, 2016 20:14
[2016-10-30] MEDS ORDERED: Thiamine HCl 100mg/ml Inj ONE (22:34)
[2016-10-30] MEDS: Vitamin B12 1000mcg/ml Inj SUBQ SCH (23:01)
--- NOTE | 2016-10-30 23:15 | Consultation ---
DATE OF CONSULTATION: 10/30/2016 NEUROLOGY CONSULTATION REQUESTING PHYSICIAN: Long Roman M.D. HISTORY: Mr. Jai Pozo is a 51-year-old (date of 1965), right-handed, gentleman, who does have a past history of depression, alcoholism and homelessness. He was brought into the [facility] emergency room on 10/29/2016 by paramedics when he was found on the streets behaving in an unusual manner with his clothes soiled with urine. When he was brought into the emergency room, he was poorly responsive and was brought in as a Frank Oneil. He was worked up thoroughly in the emergency room and was found to have a urinary tract infection. He has since been started on fluids, electrolytes and antibiotics and has improved. At this point in time, the patient states that he feels unwell. He is unable to tell me why he feels unwell and in what way he feels unwell. He also is unable to give me details of what brought him to the hospital. He is very guarded with all his answers and there is a touch of paranoia. PAST MEDICAL HISTORY: Significant for high blood pressure, depression, alcoholism and homelessness. FAMILY HISTORY: Nothing significant as per the patient. PERSONAL HISTORY: Home: He has been living on the streets for more than a year. 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 Habits: He drinks as much alcohol as he can and has been doing so for numerous years. He denies the use of tobacco or illicit drugs. MEDICATIONS: Present medications include ceftriaxone, vancomycin, Tylenol and dextrose with sodium chloride. PHYSICAL EXAMINATION: GENERAL: He is a well-developed, relatively well-nourished, sunburnt, gentleman, lying in bed with a significant body odor. VITAL SIGNS: Pulse 80 per minute, blood pressure 126/85 mm Hg, respirations 20 per minute, and temperature 97.5 degrees Fahrenheit. HEAD: Normocephalic and atraumatic. EENT: Examination benign. NECK: No neck rigidity was observed. NEUROLOGIC EXAMINATION: MENTAL STATUS EXAMINATION: He was awake and alert. He was oriented to self and hospital. He did not know the name of the hospital and had no idea what the date, month or year was. He was able to recall 3/3 words immediately, but could not remember any of them in 1 minute and 3 minutes. It should be noted that at times he would become negativistic and it is unclear whether he was truly forgetful or whether he was being negativistic. He was unable to tell me who the present President was and who prior presidents were. He was unable to do simple mathematical problems. He was unable to tell me how to get from one place to the country to another. SPEECH: He had no dysarthria. LANGUAGE: He had problems with comprehension, repetition and expression of language. From time to time, he would say nonsensical things. He was also quite paranoid. CRANIAL NERVE EXAMINATION: II: The visual li were intact to confrontation testing. III, IV & : External ocular movements were full and the pupils 3 mm in diameter, equal, round, regular and reactive to light. V: He had normal facial sensations and the temporales, masseters, and pterygoids functioned normally. VII: He had a trace left VII central facial paresis. VIII: He was able to hear well and had no nystagmus. IX: The palate moved symmetrically on phonation. X: He had no hoarseness of voice. XI: The sternocleidomastoids and trapezii functioned normally. XII: His tongue was in midline without any fasciculations or atrophy. MOTOR SYSTEM: The tone was normal in all four extremities. Examination of muscle mass revealed no focal wasting. Examination of power was exceedingly difficult to perform because of varying degrees of cooperation. He, however moved all four extremities with some generalized weakness and significantly poor effort. SENSORY EXAMINATION: He responded appropriately to deep pain. He was unable to cooperate for the sensory modalities. REFLEXES: Trace+ and bilaterally symmetrical at the biceps, triceps, brachioradialis, and knees. 0 at both ankles. The plantar responses were flexor bilaterally. STANCE & GAIT: Could not be tested. DIAGNOSTIC IMPRESSION: 1. Mr. Jai Pozo is a 51-year-old, right-handed, gentleman, who does have a past history of hypertension, depression, alcoholism and homelessness, who was brought into the [facility] emergency room by paramedics when he was found on the streets behaving in an unusual manner with his clothes soiled with urine. Since he has been here, his mental state has improved. 2. On neurological examination, at this time, he is significantly guarded and at times paranoid. He is oriented to self only and exhibits global cerebral dysfunction versus negativism. He also has a trace left VII central facial paresis, is generally weak and has globally diminished reflexes. 3. Laboratory data on admission revealed that he had a significant leukocytosis with a WBC count of 11.6. The leukocytosis has now resolved with a WBC count of 8.2. His chemistry panel revealed an anion gap of 18, glucose elevated to 148, uric acid elevated to 8.1, CK elevated to 217, C-reactive protein elevated to 3.3, ProBNP elevated to 2842. A low B12 level at 330 and a normal TSH. His urine analysis revealed 2+ leukocyte esterase, 2-4 red blood cells and 5-10 white blood cells per high-power field. His toxicology screen was negative and his serum alcohol level is less than 10. 4. His CSF revealed 3620 red blood cells in tube #1 and 415 red blood cells in tube #4. The white blood cells were 25 in tube # 1 and 1 in tube #4. The protein was 35 and glucose was 81. 5. A CT scan of the brain without contrast revealed significant atrophy and in addition hydrocephalus ex vacuo with the right lateral ventricle larger than the left. 6. The patient's history, neurological examination, laboratory data and imaging studies are most compatible with resolving encephalopathy due to alcohol withdrawal and an infection, superimposed on an old psychiatric illness and/or alcoholic dementia. In addition, he also has a urinary tract infection and is B12 deficient. RECOMMENDATIONS: 1. Agree with management thus far. 2. Would treat the patient's infectious process in an aggressive manner. 3. He should be given vitamin B12 1000 mcg subcutaneously daily for three days and then monthly. 4. He should be given thiamine 100 mg intravenously now. 5. He should be mobilized with physical and occupational therapy. 6. He should be given a therapeutic bath. 7. He should be placed in a safe living environment in the future. Thank you for entrusting me with the care of Mr. Pozo. I shall follow him with you. Bryce Montes M.D., M.S.P.H. DR: CHARLETTE JOB#: [id number] MTDD
[2016-10-31] VITALS: BP 128/81
--- NOTE | 2016-10-31 02:00 | Consultation ---
DATE OF CONSULTATION: 10/30/2016 INFECTIOUS DISEASE CONSULTATION CONSULTING PHYSICIAN: Jair Cohen M.D. REFERRING PHYSICIAN: Long Roman M.D. REASON FOR CONSULTATION: Sepsis, altered level of consciousness, left elbow infection, recommendation for antibiotics treatment HISTORY OF PRESENT ILLNESS: The patient is a 58-year-old male who is homeless was brought in to [facility] from street after he had alcohol ingestion. The patient's blood glucose was found to be 63. He was dehydrated, and cooperative with paramedics. He was brought to the hospital for further evaluation and management. The patient was found to have fever and leukocytosis. He had lumbar puncture done in the emergency room. Given IV antibiotics. There was questionable scabies, so he received Elimite in the emergency room and I was consulted for further evaluation and management. As of note, the patient is a poor historian, cannot provide any history. History was mainly obtained from the medical record and the emergency room staff. REVIEW OF SYSTEMS: Unable to obtain at this point. The patient obtunded and altered. PAST MEDICAL HISTORY: Unknown. PAST SURGICAL HISTORY: Unknown. SOCIAL HISTORY: Unknown. He is homeless mainly. ALLERGIES: Unable to verify due to altered mental status. MEDICATIONS: Received vancomycin. Received cefepime and prednisone with Elimite in the emergency room. LABORATORY DATA: Labs showed white count of 11.6. BUN of 18 and creatinine of 1.2. Toxicology screening was negative. Urinalysis was positive for infection. CSF showed WBC of 25, red blood cells of 415, glucose of 81, and total protein of 35. IMAGING: Head CT showed marked age related changes. Negative for acute intracranial bleed or mass effect. Evidence of right periorbital and right parietal scalp soft tissue trauma. PHYSICAL EXAMINATION: VITAL SIGNS: Temperature 97.5, pulse 80, respirations 20, blood pressure 126/85, and pulse oximetry 96% on room air. GENERAL: A middle-aged male, lying in bed, altered, obtunded, not responsive, not in distress. HEENT: Normocephalic and atraumatic. Pupils are reactive to light. Moist oral mucosa. No exudate. NECK: Supple. No lymphadenopathy. CARDIOVASCULAR: Regular rate and rhythm. No murmur. No gallop. LUNGS: Clear bilaterally and diminished breathing sounds at the bases. ABDOMEN: Soft, nontender, and nondistended. EXTREMITIES: He had left elbow abscess and left foot wound at the plantar area. ASSESSMENT AND PLAN: 1. Sepsis. We will start patient on vancomycin and ceftriaxone and send blood culture. 2. Altered mental status, rule out meningitis. Status post lumbar puncture. Await CSF fluid culture. Continue vancomycin with ceftriaxone empiric treatment. 3. Possible scabies. Continual Elimite one more course. 4. Left elbow and left foot skin infection with possible abscess status post auto drain. Continue IV antibiotic treatment and wound care as needed. Jair Cohen M.D. DR: ASHWINI JOB#: [id number] CC: HAO
[2016-10-31 04:00] VITALS: BP 127/66
[2016-10-31 07:15] VITALS: BP 138/90
--- NOTE | 2016-10-31 07:45 | History and Physical Report ---
DATE OF ADMISSION: 10/29/2016 HISTORY OF PRESENT ILLNESS: The patient is here for altered mental status, fever, rule out sepsis. LP was done by the ER doctor. We cannot get any history from the patient, extremely confused and encephalopathic. PAST MEDICAL HISTORY: Unable to obtain. PAST SURGICAL HISTORY: Unable to obtain. MEDICATIONS: Unable to obtain. ALLERGIES: Unable to obtain. SOCIAL HISTORY: The patient apparently has history of alcohol abuse. FAMILY HISTORY: Unable to obtain. REVIEW OF SYSTEMS: Unable to obtain. The patient just repeats garbled mumbled speech. He is not coherent at this point. PHYSICAL EXAMINATION: VITAL SIGNS: Temperature is 98.4 degrees, pulse 103, and blood pressure 128/85. HEENT: PERRLA. NECK: Supple. No lymphadenopathy. CHEST: Clear to auscultation. GASTROINTESTINAL: Soft, nontender, and nondistended. No organomegaly. EXTREMITIES: No edema. Moves all four extremities. NEUROLOGIC: Does not follow neurological examination. LABORATORY AND DIAGNOSTIC DATA: WBC 11.6, hemoglobin 14.7, and platelets 174,000. Sodium 143, potassium 3.8, BUN 18, creatinine 1.2, glucose 148. ASSESSMENT: 1. Altered mental status, rule out sepsis. 2. Encephalopathy, status post lumbar puncture. 3. Rule out acidosis causes. PLAN: I have asked Dr. Rizvi, Dr. Cohen, , Dr. Galloway, Dr. Montes, Dr. Norwood to see the patient for the above-mentioned diagnoses and treatment. Long Roman M.D. DR: Marie JOB#: [id number] CC:
--- NOTE | 2016-10-31 07:55 | General Progress Note ---
Assessment/Plan Assessment/Plan Assessment - resolving AMS - resolved abnormal bili - Scabies - dehydration Recommendation - IVF - supportive care - PO diet - OOB - d/c planning Subjective Allergies: Coded Allergies: No Known Allergies (Unverified , 10/30/16) Subjective feels OK no complaints eating Objective Last 24 Hour Vital Signs Date Time Temp Pulse Resp B/P Pulse Ox O2 Delivery O2 Flow Rate FiO2 10/31/16 07:15 98.1 91 16 138/90 98 Room Air 10/31/16 04:00 98.2 72 20 127/66 95 Room Air 10/31/16 00:00 98.8 80 20 128/81 97 Room Air 10/30/16 16:18 97.5 80 20 126/85 96 Room Air 10/30/16 11:49 97.9 88 19 119/80 97 Room Air 10/30/16 08:19 98.2 95 20 119/84 98 Room Air Intake and Output 10/30/16 10/31/16 19:00 07:00 Intake Total 460 ml 885.000 ml Output Total 250 ml 1500 ml Balance 210 ml -615.000 ml Intake Oral 200 ml IV Total 260 ml 885.000 ml Output Urine Total 250 ml 1500 ml Height (Feet): 5 Height (Inches): 5.00 Weight (Pounds): 120 Objective man , NAD NCAT supple CTA RRR Soft NT ND No edema CHAD BRICENO Oct 31, 2016 07:55
--- NOTE | 2016-10-31 08:31 | Cardiology Report ---
APPROVED REPORT EKG Measurement Heart [id number] Sinus tachycardia Low voltage QRS Possible Inferior infarct, age undetermined Abnormal ECG
[2016-10-31] MEDS: Vitamin B12 1000mcg/ml Inj SUBQ SCH (08:46)
[2016-10-31] MEDS: cefTRIAXone 2 GM in D5W 110 ML IVPB SCH ×2 (08:46→20:40)
[2016-10-31] MEDS: D5NS 1,000 ML IV SCH (10:35)
--- NOTE | 2016-10-31 11:47 | General Progress Note ---
Assessment/Plan Status: stable Assessment/Plan status: Dehydration- Encephalopathy- ? Sepsis UTI Scabies Plan: DC rossi DC IV monitor labs and renal aparameters per neuro Subjective ROS Limited/Unobtainable: No Allergies: Coded Allergies: No Known Allergies (Unverified , 10/30/16) Objective Last 24 Hour Vital Signs Date Time Temp Pulse Resp B/P Pulse Ox O2 Delivery O2 Flow Rate FiO2 10/31/16 07:15 98.1 91 16 138/90 98 Room Air 10/31/16 04:00 98.2 72 20 127/66 95 Room Air 10/31/16 00:00 98.8 80 20 128/81 97 Room Air 10/30/16 16:18 97.5 80 20 126/85 96 Room Air 10/30/16 11:49 97.9 88 19 119/80 97 Room Air Intake and Output 10/30/16 10/31/16 19:00 07:00 Intake Total 460 ml 885.000 ml Output Total 250 ml 1500 ml Balance 210 ml -615.000 ml Intake Oral 200 ml IV Total 260 ml 885.000 ml Output Urine Total 250 ml 1500 ml Height (Feet): 5 Height (Inches): 5.00 Weight (Pounds): 120 General Appearance: no apparent distress Objective no change IZABELLA TURCIOS Oct 31, 2016 11:47
[2016-10-31 11:52] VITALS: BP 136/92
--- NOTE | 2016-10-31 11:52 | General Progress Note ---
Assessment/Plan Problem List: (1) Altered mental status ICD Codes: R41.82 - Altered mental status, unspecified SNOMED: 952570131 (2) Encephalopathy acute ICD Codes: G93.40 - Encephalopathy, unspecified SNOMED: 0041409 (3) Sepsis ICD Codes: A41.9 - Sepsis, unspecified organism SNOMED: 78417631 Qualifiers: Qualified Codes: A41.9 - Sepsis, unspecified organism Status: progressing Assessment/Plan ams s/p lp sepsis abx per id afebrile vitals stable more alert Subjective ROS Limited/Unobtainable: Yes Constitutional: Reports: no symptoms Allergies: Coded Allergies: No Known Allergies (Unverified , 10/30/16) Objective Last 24 Hour Vital Signs Date Time Temp Pulse Resp B/P Pulse Ox O2 Delivery O2 Flow Rate FiO2 10/31/16 07:15 98.1 91 16 138/90 98 Room Air 10/31/16 04:00 98.2 72 20 127/66 95 Room Air 10/31/16 00:00 98.8 80 20 128/81 97 Room Air 10/30/16 16:18 97.5 80 20 126/85 96 Room Air Intake and Output 10/30/16 10/31/16 19:00 07:00 Intake Total 460 ml 885.000 ml Output Total 250 ml 1500 ml Balance 210 ml -615.000 ml Intake Oral 200 ml IV Total 260 ml 885.000 ml Output Urine Total 250 ml 1500 ml Height (Feet): 5 Height (Inches): 5.00 Weight (Pounds): 120 General Appearance: confused Neck: supple Long Roman MD Oct 31, 2016 11:52
--- NOTE | 2016-10-31 14:16 | Infectious Diseases Prog Note ---
Assessment/Plan Problems: (1) Sepsis Assessment & Plan: continue vancomycin and ceftriaxon empirically , await blood culture (2) Altered mental status Assessment & Plan: improving. rule out meningitis, S/P LP, await CSF fluids culture, continue vancomycin with ceftriaxone empirically for now (3) Scabies Assessment & Plan: S/P two courses of Elimite (4) Elbow mass Assessment & Plan: suspect abscess S/P auto drain , on wide spectrum abx Subjective Constitutional: Reports: no symptoms HEENT: Reports: no symptoms Respiratory: Reports: no symptoms Breasts: Reports: no symptoms Cardiovascular: Reports: no symptoms Gastrointestinal/Abdominal: Reports: no symptoms Genitourinary: Reports: no symptoms Neurologic: Reports: no symptoms Psychiatric: Reports: no symptoms Skin: Reports: no symptoms Endocrine: Reports: no symptoms Allergies: Coded Allergies: No Known Allergies (Unverified , 10/30/16) Subjective he was awake and alert , Sammarinese speaker, not in distress Objective Vital Signs Last 24 Hour Vital Signs Date Time Temp Pulse Resp B/P Pulse Ox O2 Delivery O2 Flow Rate FiO2 10/31/16 11:52 98.2 80 16 136/92 99 Room Air 10/31/16 07:15 98.1 91 16 138/90 98 Room Air 10/31/16 04:00 98.2 72 20 127/66 95 Room Air 10/31/16 00:00 98.8 80 20 128/81 97 Room Air 10/30/16 16:18 97.5 80 20 126/85 96 Room Air Height (Feet): 5 Height (Inches): 5.00 Weight (Pounds): 120 General Appearance: WD/WN, no acute distress HEENT: normocephalic, atraumatic, anicteric Respiratory/Chest: chest wall non-tender, lungs clear, normal breath sounds, no respiratory distress Cardiovascular: normal peripheral pulses, normal rate, regular rhythm, no gallop/murmur Abdomen: normal bowel sounds, soft, non tender, no organomegaly, non distended , no mass Extremities: no cyanosis, no clubbing Skin: no rash, ulcers Microbiology Date/Time Source Procedure Growth Status 10/29/16 09:55 Blood Blood Culture - Preliminary NO GROWTH AFTER 48 HOURS Resulted 10/29/16 09:45 Blood Blood Culture - Preliminary NO GROWTH AFTER 48 HOURS Resulted 10/29/16 14:44 Cerebral Spinal Fluid Gram Stain - Final Resulted 10/29/16 14:44 Cerebral Spinal Fluid CSF Culture - Preliminary NO GROWTH AFTER 24 HOURS Resulted 10/29/16 09:30 Nasal Nares MRSA Culture - Final NO METHICILLIN RESISTANT STAPH AUREUS... Complete 10/29/16 09:30 Rectum VRE Culture - Final NO VANCOMYCIN RESISTANT ENTEROCOCCUS ... Complete Current Medications Medications (Trade) Dose Ordered Sig/Gi Route PRN Reason Start Time Stop Time Status Last Admin Dose Admin Acetaminophen (Tylenol) 650 mg Q4H PRN RECTAL Fever/Headache/Mild Pain 10/29/16 17:30 11/28/16 17:29 Ceftriaxone Sodium/Dextrose (Rocephin/D5W) 110 ml @ 220 mls/hr Q12HR IVPB 10/29/16 20:00 11/05/16 19:59 10/31/16 08:46 Clonidine HCl (Catapres) 0.1 mg Q4H PRN ORAL blood pressure 10/31/16 14:15 11/30/16 14:14 UNV Cyanocobalamin (Vitamin B12) 1,000 mcg DAILY SUBQ 10/30/16 21:30 11/01/16 09:01 10/31/16 08:46 Dextrose (Dextrose 50%) STAT PRN IV Hypoglycemia 10/29/16 17:30 11/28/16 17:29 Lorazepam (Ativan) 1 mg Q6H PRN ORAL For agitation 10/31/16 14:15 11/07/16 14:14 UNV Vancomycin HCl 1.25 gm/Dextrose 275 ml @ 183.708 mls/hr Q24H IVPB 10/29/16 18:00 11/03/16 17:59 10/30/16 18:03 Jair Cohen M.D. Oct 31, 2016 14:15
--- NOTE | 2016-10-31 14:21 | Consultation ---
History of Present Illness General Date patient seen: Oct 31, 2016 Time patient seen: 01:45 - pm Chief Complaint: Altered Level of Consciousness Referring physician: Jessie Present Illness HPI Patient was admitted under altered mental status due to alcohol abuse. Allergies: Coded Allergies: No Known Allergies (Unverified , 10/30/16) Medication History Miscellaneous Medications Unable to Obtain Medications (Unable To Obtain Meds), (Reported) Patient History Healthcare decision maker Resuscitation status Full Code Advanced Directive on File Past Medical/Surgical History Past Medical/Surgical History: (1) UTI (urinary tract infection) Review of Systems ROS Narrative unable to obtain due to patient mental statues Physical Exam General Appearance: alert, confused HEENT: PERRL, EOMI Neck: non-tender, supple Respiratory/Chest: lungs clear, normal breath sounds Abdomen: non tender, soft Extremities: non-tender Neurologic: disoriented Last 24 Hour Vital Signs Date Time Temp Pulse Resp B/P Pulse Ox O2 Delivery O2 Flow Rate FiO2 10/31/16 11:52 98.2 80 16 136/92 99 Room Air 10/31/16 07:15 98.1 91 16 138/90 98 Room Air 10/31/16 04:00 98.2 72 20 127/66 95 Room Air 10/31/16 00:00 98.8 80 20 128/81 97 Room Air 10/30/16 16:18 97.5 80 20 126/85 96 Room Air Intake and Output 10/30/16 10/31/16 19:00 07:00 Intake Total 460 ml 885.000 ml Output Total 250 ml 1500 ml Balance 210 ml -615.000 ml Intake Oral 200 ml IV Total 260 ml 885.000 ml Output Urine Total 250 ml 1500 ml Height (Feet): 5 Height (Inches): 5.00 Weight (Pounds): 120 Medications Current Medications Medications (Trade) Dose Ordered Sig/Gi Route PRN Reason Start Time Stop Time Status Last Admin Dose Admin Acetaminophen (Tylenol) 650 mg Q4H PRN RECTAL Fever/Headache/Mild Pain 10/29/16 17:30 11/28/16 17:29 Ceftriaxone Sodium/Dextrose (Rocephin/D5W) 110 ml @ 220 mls/hr Q12HR IVPB 10/29/16 20:00 11/05/16 19:59 10/31/16 08:46 Clonidine HCl (Catapres) 0.1 mg Q4H PRN ORAL blood pressure 10/31/16 14:15 11/30/16 14:14 UNV Cyanocobalamin (Vitamin B12) 1,000 mcg DAILY SUBQ 10/30/16 21:30 11/01/16 09:01 10/31/16 08:46 Dextrose (Dextrose 50%) STAT PRN IV Hypoglycemia 10/29/16 17:30 11/28/16 17:29 Lorazepam (Ativan) 1 mg Q6H PRN ORAL For agitation 10/31/16 14:15 11/07/16 14:14 UNV Vancomycin HCl 1.25 gm/Dextrose 275 ml @ 183.708 mls/hr Q24H IVPB 10/29/16 18:00 11/03/16 17:59 10/30/16 18:03 Assessment/Plan Assessment/Plan (1) Alerted mental status (2) Alcohol abuse (3) Alcohol withdrawal (4) R/O delirium tremens Pt will be started on Ativan 1mg PO 1 tab Q6H PRN and Clonidine 0.1mg PO 1 tab Q4H PRN Pt was d/w Dr. Galloway and he concurred Thank you for courtesy of this consultation. YURY ROMANO Oct 31, 2016 14:21
[2016-10-31 15:55] VITALS: BP 153/94
[2016-10-31] MEDS: Vancomycin 1.25 GM in D5W 275 ML IVPB SCH (17:18)
--- NOTE | 2016-10-31 19:12 | Neurology Progress Note ---
Interim History Interim History Interim History Mr. Pozo feels better today. He continues to have severe amnesia and cannot remember the circumstances that brought him to the hospital. He continues to be guarded. He continues to be cognitively impoverished. He denies any new neurologic symptoms. Review of Systems Neuro Review of Systems Benign. Objective Physical Exam Last Vital Signs Date Time Temp Pulse Resp B/P Pulse Ox O2 Delivery O2 Flow Rate FiO2 10/31/16 15:55 97.9 88 16 153/94 98 Room Air Neurologic Exam Objective PHYSICAL EXAMINATION: GENERAL: He is a well-developed, relatively well-nourished, sunburnt, gentleman, lying in bed with a significant body odor - minimally better than yesterday. HEAD: Normocephalic and atraumatic. EENT: Examination benign. NECK: No neck rigidity was observed. NEUROLOGIC EXAMINATION: MENTAL STATUS EXAMINATION: He was awake and alert. He was oriented to self and hospital. He did not know the name of the hospital and had no idea what the date, month or year was. He was able to recall 3/3 words immediately, but could not remember any of them in 1 minute and 3 minutes. He was unable to tell me who the present President was and who prior presidents were. He was unable to do simple mathematical problems. He was unable to tell me how to get from one place to the country to another. SPEECH: He had no dysarthria. LANGUAGE: He had problems with comprehension, repetition and expression of language. CRANIAL NERVE EXAMINATION: II: The visual li were intact to confrontation testing. III, IV & : External ocular movements were full and the pupils 3 mm in diameter, equal, round, regular and reactive to light. V: He had normal facial sensations and the temporales, masseters, and pterygoids functioned normally. VII: He had a trace left VII central facial paresis. VIII: He was able to hear well and had no nystagmus. IX: The palate moved symmetrically on phonation. X: He had no hoarseness of voice. XI: The sternocleidomastoids and trapezii functioned normally. XII: His tongue was in midline without any fasciculations or atrophy. MOTOR SYSTEM: The tone was normal in all four extremities. Examination of muscle mass revealed no focal wasting. Examination of power was exceedingly difficult to perform because of varying degrees of cooperation. He, however moved all four extremities with some generalized weakness and significantly poor effort. SENSORY EXAMINATION: He responded appropriately to deep pain. He was unable to cooperate for the sensory modalities. REFLEXES: Trace+ and bilaterally symmetrical at the biceps, triceps, brachioradialis, and knees. 0 at both ankles. The plantar responses were flexor bilaterally. STANCE & GAIT: Could not be tested. Impression/Recommendations Diagnostic Impression 1. Mr. Jai Pozo is a 51-year-old, right-handed, gentleman, who does have a past history of hypertension, depression, alcoholism and homelessness, who was brought into the [facility] emergency room by paramedics when he was found on the streets behaving in an unusual manner with his clothes soiled with urine. Since he has been here, his mental state has improved. 2. He feels better today. He however has significant cognitive dysfunction 3. On neurological examination, at this time, he is oriented to self only and exhibits global cerebral dysfunction. He also has a trace left VII central facial paresis, is generally weak and has globally diminished reflexes. 4. Laboratory data on admission revealed that he had a significant leukocytosis with a WBC count of 11.6. The leukocytosis has now resolved with a WBC count of 8.2. His chemistry panel revealed an anion gap of 18, glucose elevated to 148, uric acid elevated to 8.1, CK elevated to 217, C-reactive protein elevated to 3.3, ProBNP elevated to 2842. A low B12 level at 330 and a normal TSH. His urine analysis revealed 2+ leukocyte esterase, 2-4 red blood cells and 5-10 white blood cells per high-power field. His toxicology screen was negative and his serum alcohol level is less than 10. 5. His CSF revealed 3620 red blood cells in tube #1 and 415 red blood cells in tube #4. The white blood cells were 25 in tube # 1 and 1 in tube #4. The protein was 35 and glucose was 81. 6. A CT scan of the brain without contrast revealed significant atrophy and in addition hydrocephalus ex vacuo with the right lateral ventricle larger than the left. 7. The patient's history, neurological examination, laboratory data and imaging studies are most compatible with resolving encephalopathy due to alcohol withdrawal and an infection, superimposed on an old psychiatric illness and/or alcoholic dementia. In addition, he also has a urinary tract infection and is B12 deficient. Recommendations 1. Continue present management. 2. Would treat the patient's infectious process in an aggressive manner. 3. He should be given vitamin B12 1000 mcg subcutaneously daily for three days and then monthly. 4. He should be mobilized with physical and occupational therapy. 5. He should be given a therapeutic baths. 6. He should be placed in a safe living environment in the future. 7. No further neurologic interventions are necessary so will stop following him. Please call of needed. Lilian Montes M.D., M.S.P.[place]. LILIAN MONTES Oct 31, 2016 19:12
[2016-10-31 20:00] VITALS: BP 137/86
[2016-11-01] VITALS (7 sets, daily range): BP systolic 120–133; BP diastolic 71–93
[2016-11-01] MEDS: LORazepam 1mg tab ORAL PRN ×2 (02:43→21:36)
[2016-11-01 06:37] LABS: BASOPHILS % (AUTO) 0.7 % (0.0-2.0); LYMPHOCYTES % (AUTO) 35.7 % (20.0-45.0); MEAN CORPUSCULAR HEMOGLOBIN 33.5 PG (27.0-31.0); MEAN CORPUSCULAR HGB CONC 34.5 G/DL (32.0-36.0); MEAN CORPUSCULAR VOLUME 97 FL (80-99); MEAN PLATELET VOLUME 8.8 FL (6.5-10.1); MONOCYTES % (AUTO) 9.6 % (1.0-10.0); NEUTROPHILS % (AUTO) 48.1 % (45.0-75.0); PLATELET COUNT 110 K/UL (150-450); RED BLOOD COUNT 3.38 M/UL (4.70-6.10); WHITE BLOOD COUNT 5.4 K/UL (4.8-10.8)
[2016-11-01 06:56] LABS: ALANINE AMINOTRANSFERASE 11 U/L (3-41); ALBUMIN/GLOBULIN RATIO 1.4 (1.0-2.7); ANION GAP 13 (5-15); ASPARTATE AMINO TRANSFERASE 19 U/L (5-40); CALCIUM 8.6 mg/dL (8.6-10.2); CARBON DIOXIDE 29 mEQ/L (20-30); CHLORIDE 94 mEQ/L (98-107); CREATININE 0.8 mg/dL (0.7-1.2); CRP QUANT 0.8 mg/dL (< 0.5); GLOMERULAR FILTRATION RATE > 60 mL/min (>60); HEMOLYSIS 6; MAGNESIUM 1.9 mg/dL (1.7-2.5); PHOSPHORUS 3.5 mg/dL (2.5-4.8); POTASSIUM 3.2 mEQ/L (3.4-4.9); SODIUM 136 mEQ/L (135-145); TOTAL PROTEIN 6.6 g/dL (6.6-8.7); URIC ACID 3.4 mg/dL (3.0-7.5)
[2016-11-01] MEDS: cefTRIAXone 2 GM in D5W 110 ML IVPB SCH (08:27)
[2016-11-01] MEDS: Vitamin B12 1000mcg/ml Inj SUBQ SCH (08:27)
--- NOTE | 2016-11-01 08:48 | General Progress Note ---
Assessment/Plan Assessment/Plan Assessment - resolving AMS - resolved abnormal bili - Scabies - dehydration Recommendation - IVF - supportive care - PO diet - OOB - d/c planning - will return to see patient Friday Subjective Allergies: Coded Allergies: No Known Allergies (Unverified , 10/30/16) Subjective feels OK no complaints eating Objective Last 24 Hour Vital Signs Date Time Temp Pulse Resp B/P Pulse Ox O2 Delivery O2 Flow Rate FiO2 11/01/16 07:30 98.1 75 16 126/87 98 Room Air 11/01/16 04:00 97.2 71 14 133/87 Room Air 11/01/16 00:00 97.2 72 20 128/71 95 Room Air 10/31/16 20:00 98.2 80 20 137/86 99 Room Air 10/31/16 15:55 97.9 88 16 153/94 98 Room Air 10/31/16 11:52 98.2 80 16 136/92 99 Room Air Intake and Output 10/31/16 11/01/16 19:00 07:00 Intake Total 2185.000 ml 220 ml Output Total 300 ml Balance 1885.000 ml 220 ml Intake Oral 1800 ml IV Total 385.000 ml 220 ml Output Urine Total 300 ml # Voids 4 4 # Bowel Movements 1 Laboratory Tests 11/01/16 04:00: White Blood Count 5.4, Red Blood Count 3.38L, Hemoglobin 11.3L, Hematocrit 32.9L , Mean Corpuscular Volume 97, Mean Corpuscular Hemoglobin 33.5H, Mean Corpuscular Hemoglobin Concent 34.5, Red Cell Distribution Width 13.0, Platelet Count 110L, Mean Platelet Volume 8.8, Neutrophils (%) (Auto) 48.1, Lymphocytes ( %) (Auto) 35.7, Monocytes (%) (Auto) 9.6, Eosinophils (%) (Auto) 6.0H, Basophils (%) (Auto) 0.7, Sodium Level 136, Potassium Level 3.2L, Chloride Level 94L, Carbon Dioxide Level 29, Anion Gap 13, Blood Urea Nitrogen 10, Creatinine 0.8, Estimat Glomerular Filtration Rate > 60, Glucose Level 96, Uric Acid 3.4, Calcium Level 8.6, Phosphorus Level 3.5, Magnesium Level 1.9, Total Bilirubin 0.7, Aspartate Amino Transf (AST/SGOT) 19, Alanine Aminotransferase ( ALT/SGPT) 11, Alkaline Phosphatase 64, C-Reactive Protein, Quantitative 0.8H, Pro-B-Type Natriuretic Peptide 566H, Total Protein 6.6, Albumin 3.9, Globulin 2.7, Albumin/Globulin Ratio 1.4 Height (Feet): 5 Height (Inches): 5.00 Weight (Pounds): 120 Objective man , NAD NCAT supple CTA RRR Soft NT ND No edema CHAD BRICENO Nov 01, 2016 08:48
--- NOTE | 2016-11-01 13:10 | General Progress Note ---
Assessment/Plan Status: stable Assessment/Plan status: Dehydration- Encephalopathy- ? Sepsis UTI Scabies Plan: DC rossi DC IV monitor labs and renal aparameters per neuro Subjective ROS Limited/Unobtainable: No Constitutional: Reports: malaise Allergies: Coded Allergies: No Known Allergies (Unverified , 10/30/16) Objective Last 24 Hour Vital Signs Date Time Temp Pulse Resp B/P Pulse Ox O2 Delivery O2 Flow Rate FiO2 11/01/16 12:15 97.5 91 15 120/81 98 Room Air 11/01/16 07:30 98.1 75 16 126/87 98 Room Air 11/01/16 04:00 97.2 71 14 133/87 Room Air 11/01/16 00:00 97.2 72 20 128/71 95 Room Air 10/31/16 20:00 98.2 80 20 137/86 99 Room Air 10/31/16 15:55 97.9 88 16 153/94 98 Room Air Intake and Output 10/31/16 11/01/16 19:00 07:00 Intake Total 2185.000 ml 220 ml Output Total 300 ml Balance 1885.000 ml 220 ml Intake Oral 1800 ml IV Total 385.000 ml 220 ml Output Urine Total 300 ml # Voids 4 4 # Bowel Movements 1 Laboratory Tests 11/01/16 04:00: White Blood Count 5.4, Red Blood Count 3.38L, Hemoglobin 11.3L, Hematocrit 32.9L , Mean Corpuscular Volume 97, Mean Corpuscular Hemoglobin 33.5H, Mean Corpuscular Hemoglobin Concent 34.5, Red Cell Distribution Width 13.0, Platelet Count 110L, Mean Platelet Volume 8.8, Neutrophils (%) (Auto) 48.1, Lymphocytes ( %) (Auto) 35.7, Monocytes (%) (Auto) 9.6, Eosinophils (%) (Auto) 6.0H, Basophils (%) (Auto) 0.7, Sodium Level 136, Potassium Level 3.2L, Chloride Level 94L, Carbon Dioxide Level 29, Anion Gap 13, Blood Urea Nitrogen 10, Creatinine 0.8, Estimat Glomerular Filtration Rate > 60, Glucose Level 96, Uric Acid 3.4, Calcium Level 8.6, Phosphorus Level 3.5, Magnesium Level 1.9, Total Bilirubin 0.7, Aspartate Amino Transf (AST/SGOT) 19, Alanine Aminotransferase ( ALT/SGPT) 11, Alkaline Phosphatase 64, C-Reactive Protein, Quantitative 0.8H, Pro-B-Type Natriuretic Peptide 566H, Total Protein 6.6, Albumin 3.9, Globulin 2.7, Albumin/Globulin Ratio 1.4 Height (Feet): 5 Height (Inches): 5.00 Weight (Pounds): 120 General Appearance: no apparent distress Objective no change IZABELLA TURCIOS Nov 01, 2016 13:10
--- NOTE | 2016-11-01 14:11 | Infectious Diseases Prog Note ---
Assessment/Plan Problems: (1) Sepsis Assessment & Plan: ruled out with negative blood culture , will discontinue vancomycin and ceftriaxon empirically (2) Altered mental status Assessment & Plan: improved . no evidence of meningitis, S/P LP, CSF fluids culture is negative , will stop vancomycin with ceftriaxone empirically for now (3) Scabies Assessment & Plan: S/P Elimite (4) Elbow mass Assessment & Plan: suspect abscess S/P auto drain , improved on wide spectrum abx. Subjective Constitutional: Reports: no symptoms HEENT: Reports: no symptoms Respiratory: Reports: no symptoms Breasts: Reports: no symptoms Cardiovascular: Reports: no symptoms Gastrointestinal/Abdominal: Reports: no symptoms Genitourinary: Reports: no symptoms Neurologic: Reports: no symptoms Psychiatric: Reports: no symptoms Skin: Reports: ulcer Endocrine: Reports: no symptoms Hematologic: Reports: no symptoms Musculoskeletal: Reports: no symptoms Allergies: Coded Allergies: No Known Allergies (Unverified , 10/30/16) Subjective he was awake and alert , Yoruba speaker, not in distress Objective Vital Signs Last 24 Hour Vital Signs Date Time Temp Pulse Resp B/P Pulse Ox O2 Delivery O2 Flow Rate FiO2 11/01/16 12:15 97.5 91 15 120/81 98 Room Air 11/01/16 07:30 98.1 75 16 126/87 98 Room Air 11/01/16 04:00 97.2 71 14 133/87 Room Air 11/01/16 00:00 97.2 72 20 128/71 95 Room Air 10/31/16 20:00 98.2 80 20 137/86 99 Room Air 10/31/16 15:55 97.9 88 16 153/94 98 Room Air Height (Feet): 5 Height (Inches): 5.00 Weight (Pounds): 120 General Appearance: WD/WN, no acute distress HEENT: normocephalic, atraumatic, anicteric, mucous membranes moist Respiratory/Chest: chest wall non-tender, lungs clear, normal breath sounds, no respiratory distress, no accessory muscle use Cardiovascular: normal peripheral pulses, normal rate, regular rhythm, no gallop/murmur, no JVD Abdomen: normal bowel sounds, soft, non tender, no organomegaly, non distended , no mass Extremities: no cyanosis, no clubbing Skin: no rash, no lesions, ulcers Microbiology Date/Time Source Procedure Growth Status 10/29/16 14:44 Cerebral Spinal Fluid Gram Stain - Final Resulted 10/29/16 14:44 Cerebral Spinal Fluid CSF Culture - Preliminary NO GROWTH AFTER 48 HOURS Resulted Laboratory Tests Test 11/01/16 04:00 White Blood Count 5.4 K/UL (4.8-10.8) Red Blood Count 3.38 M/UL (4.70-6.10) L Hemoglobin 11.3 G/DL (14.2-18.0) L Hematocrit 32.9 % (42.0-52.0) L Mean Corpuscular Volume 97 FL (80-99) Mean Corpuscular Hemoglobin 33.5 PG (27.0-31.0) H Mean Corpuscular Hemoglobin Concent 34.5 G/DL (32.0-36.0) Red Cell Distribution Width 13.0 % (11.6-14.8) Platelet Count 110 K/UL (150-450) L Mean Platelet Volume 8.8 FL (6.5-10.1) Neutrophils (%) (Auto) 48.1 % (45.0-75.0) Lymphocytes (%) (Auto) 35.7 % (20.0-45.0) Monocytes (%) (Auto) 9.6 % (1.0-10.0) Eosinophils (%) (Auto) 6.0 % (0.0-3.0) H Basophils (%) (Auto) 0.7 % (0.0-2.0) Sodium Level 136 mEQ/L (135-145) Potassium Level 3.2 mEQ/L (3.4-4.9) L Chloride Level 94 mEQ/L (98-107) L Carbon Dioxide Level 29 mEQ/L (20-30) Anion Gap 13 (5-15) Blood Urea Nitrogen 10 mg/dL (7-23) Creatinine 0.8 mg/dL (0.7-1.2) Estimat Glomerular Filtration Rate > 60 mL/min (>60) Glucose Level 96 mg/dL (74-106) Uric Acid 3.4 mg/dL (3.0-7.5) Calcium Level 8.6 mg/dL (8.6-10.2) Phosphorus Level 3.5 mg/dL (2.5-4.8) Magnesium Level 1.9 mg/dL (1.7-2.5) Total Bilirubin 0.7 mg/dL (0.0-1.2) Aspartate Amino Transf (AST/SGOT) 19 U/L (5-40) Alanine Aminotransferase (ALT/SGPT) 11 U/L (3-41) Alkaline Phosphatase 64 U/L (40-129) C-Reactive Protein, Quantitative 0.8 mg/dL (< 0.5) H Pro-B-Type Natriuretic Peptide 566 pg/mL (0-125) H Total Protein 6.6 g/dL (6.6-8.7) Albumin 3.9 g/dL (3.5-5.2) Globulin 2.7 g/dL Albumin/Globulin Ratio 1.4 (1.0-2.7) Current Medications Medications (Trade) Dose Ordered Sig/Gi Route PRN Reason Start Time Stop Time Status Last Admin Dose Admin Acetaminophen (Tylenol) 650 mg Q4H PRN RECTAL Fever/Headache/Mild Pain 10/29/16 17:30 11/28/16 17:29 Ceftriaxone Sodium/Dextrose (Rocephin/D5W) 110 ml @ 220 mls/hr Q12HR IVPB 10/29/16 20:00 11/05/16 19:59 11/01/16 08:27 Clonidine HCl (Catapres) 0.1 mg Q4H PRN ORAL SBP > 160 OR DBP > 100 10/31/16 14:15 11/30/16 14:14 Dextrose (Dextrose 50%) STAT PRN IV Hypoglycemia 10/29/16 17:30 11/28/16 17:29 Lorazepam (Ativan) 1 mg Q6H PRN ORAL For agitation 10/31/16 14:15 11/07/16 14:14 11/01/16 02:43 Potassium Chloride (K-Dur) 40 meq ONCE ONCE ORAL 11/01/16 14:00 11/01/16 14:01 Thiamine HCl (Vitamin B1) 100 mg DAILY ORAL 11/01/16 14:00 12/01/16 13:59 Vancomycin HCl 1.25 gm/Dextrose 275 ml @ 183.708 mls/hr Q24H IVPB 10/29/16 18:00 11/03/16 17:59 10/31/16 17:18 Jair Cohen M.D. Nov 01, 2016 14:11
[2016-11-01] MEDS: Thiamine 100mg tab ORAL SCH (14:54)
--- NOTE | 2016-11-01 15:31 | Consultation ---
Consult Note Consult Note HEME CONSULT DATE OF CONSULTATION: 11/01/2016 CONSULTING PHYSICIAN: Eliu Vela MD REFERRING PHYSICIAN: Long Roman M.D. REASON FOR CONSULTATION: Thrombocytopenia, anemia HISTORY OF PRESENT ILLNESS: 58-year-old male who is homeless was brought in to [facility] from street after he had alcohol ingestion. The patient's blood glucose was found to be 63. He was dehydrated, and cooperative with paramedics. He was brought to the hospital for further evaluation and management. The patient was found to have fever and leukocytosis. He had lumbar puncture done in the emergency room. Given IV antibiotics. There was questionable scabies, so he received Elimite in the emergency room and I was consulted for further evaluation and management. As of note, the patient is a poor historian, cannot provide any history. He was noted to have developed a anemia and low plts of 110k therefore heme consulted. REVIEW OF SYSTEMS: Unable to obtain at this point. PAST MEDICAL HISTORY: Unknown. PAST SURGICAL HISTORY: Unknown. SOCIAL HISTORY: Unknown. He is homeless mainly. ALLERGIES: Unable to verify due to altered mental status. MEDICATIONS: reviewed in emr LABORATORY DATA: Laboratory Tests Test 11/01/16 04:00 White Blood Count 5.4 K/UL (4.8-10.8) Red Blood Count 3.38 M/UL (4.70-6.10) L Hemoglobin 11.3 G/DL (14.2-18.0) L Hematocrit 32.9 % (42.0-52.0) L Mean Corpuscular Volume 97 FL (80-99) Mean Corpuscular Hemoglobin 33.5 PG (27.0-31.0) H Mean Corpuscular Hemoglobin Concent 34.5 G/DL (32.0-36.0) Red Cell Distribution Width 13.0 % (11.6-14.8) Platelet Count 110 K/UL (150-450) L Mean Platelet Volume 8.8 FL (6.5-10.1) Neutrophils (%) (Auto) 48.1 % (45.0-75.0) Lymphocytes (%) (Auto) 35.7 % (20.0-45.0) Monocytes (%) (Auto) 9.6 % (1.0-10.0) Eosinophils (%) (Auto) 6.0 % (0.0-3.0) H Basophils (%) (Auto) 0.7 % (0.0-2.0) Sodium Level 136 mEQ/L (135-145) Potassium Level 3.2 mEQ/L (3.4-4.9) L Chloride Level 94 mEQ/L (98-107) L Carbon Dioxide Level 29 mEQ/L (20-30) Anion Gap 13 (5-15) Blood Urea Nitrogen 10 mg/dL (7-23) Creatinine 0.8 mg/dL (0.7-1.2) Estimat Glomerular Filtration Rate > 60 mL/min (>60) Glucose Level 96 mg/dL (74-106) Uric Acid 3.4 mg/dL (3.0-7.5) Calcium Level 8.6 mg/dL (8.6-10.2) Phosphorus Level 3.5 mg/dL (2.5-4.8) Magnesium Level 1.9 mg/dL (1.7-2.5) Total Bilirubin 0.7 mg/dL (0.0-1.2) Aspartate Amino Transf (AST/SGOT) 19 U/L (5-40) Alanine Aminotransferase (ALT/SGPT) 11 U/L (3-41) Alkaline Phosphatase 64 U/L (40-129) C-Reactive Protein, Quantitative 0.8 mg/dL (< 0.5) H Pro-B-Type Natriuretic Peptide 566 pg/mL (0-125) H Total Protein 6.6 g/dL (6.6-8.7) Albumin 3.9 g/dL (3.5-5.2) Globulin 2.7 g/dL Albumin/Globulin Ratio 1.4 (1.0-2.7) IMAGING: Head CT showed marked age related changes. Negative for acute intracranial bleed or mass effect. Evidence of right periorbital and right parietal scalp soft tissue trauma. PHYSICAL EXAMINATION: VITAL SIGNS: Temperature 97.5, pulse 80, respirations 20, blood pressure 126/85 , and pulse oximetry 96% on room air. GENERAL: A middle-aged male, lying in bed, altered, obtunded, not responsive, not in distress. HEENT: Normocephalic and atraumatic. Pupils are reactive to light. Moist oral mucosa. No exudate. NECK: Supple. No lymphadenopathy. CARDIOVASCULAR: Regular rate and rhythm. No murmur. No gallop. LUNGS: Clear bilaterally and diminished breathing sounds at the bases. ABDOMEN: Soft, nontender, and nondistended. EXTREMITIES: He had left elbow abscess and left foot wound at the plantar area. ASSESSMENT AND PLAN: # Thrombocytopenia is likely related to underlying infection v medication induced ---> hepatitis and hiv have been ordered # Anemia of chronic disease, has been reviewed with a anemia w/u, currently negative # Sepsis. on abx as per ID service # Altered mental status, rule out meningitis. Status post lumbar puncture # Possible scabies. Continual Elimite one more course. # Left elbow and left foot skin infection with possible abscess, s/p drainage Eliu Vela Nov 01, 2016 15:31
--- NOTE | 2016-11-01 15:39 | General Progress Note ---
Assessment/Plan Problem List: (1) Altered mental status ICD Codes: R41.82 - Altered mental status, unspecified SNOMED: 902858083 (2) Encephalopathy acute ICD Codes: G93.40 - Encephalopathy, unspecified SNOMED: 5982437 (3) Sepsis ICD Codes: A41.9 - Sepsis, unspecified organism SNOMED: 74580402 Qualifiers: Qualified Codes: A41.9 - Sepsis, unspecified organism Status: progressing Assessment/Plan ams s/p LP STILL CONFUSED UNKNOWN EOTIOLOGY FOR AMS r/o sepsis abx per id dont know the baseline mentation Subjective ROS Limited/Unobtainable: Yes Allergies: Coded Allergies: No Known Allergies (Unverified , 10/30/16) Objective Last 24 Hour Vital Signs Date Time Temp Pulse Resp B/P Pulse Ox O2 Delivery O2 Flow Rate FiO2 11/01/16 12:15 97.5 91 15 120/81 98 Room Air 11/01/16 07:30 98.1 75 16 126/87 98 Room Air 11/01/16 04:00 97.2 71 14 133/87 Room Air 11/01/16 00:00 97.2 72 20 128/71 95 Room Air 10/31/16 20:00 98.2 80 20 137/86 99 Room Air 10/31/16 15:55 97.9 88 16 153/94 98 Room Air Intake and Output 10/31/16 11/01/16 19:00 07:00 Intake Total 2185.000 ml 220 ml Output Total 300 ml Balance 1885.000 ml 220 ml Intake Oral 1800 ml IV Total 385.000 ml 220 ml Output Urine Total 300 ml # Voids 4 4 # Bowel Movements 1 Laboratory Tests 11/01/16 04:00: White Blood Count 5.4, Red Blood Count 3.38L, Hemoglobin 11.3L, Hematocrit 32.9L , Mean Corpuscular Volume 97, Mean Corpuscular Hemoglobin 33.5H, Mean Corpuscular Hemoglobin Concent 34.5, Red Cell Distribution Width 13.0, Platelet Count 110L, Mean Platelet Volume 8.8, Neutrophils (%) (Auto) 48.1, Lymphocytes ( %) (Auto) 35.7, Monocytes (%) (Auto) 9.6, Eosinophils (%) (Auto) 6.0H, Basophils (%) (Auto) 0.7, Sodium Level 136, Potassium Level 3.2L, Chloride Level 94L, Carbon Dioxide Level 29, Anion Gap 13, Blood Urea Nitrogen 10, Creatinine 0.8, Estimat Glomerular Filtration Rate > 60, Glucose Level 96, Uric Acid 3.4, Calcium Level 8.6, Phosphorus Level 3.5, Magnesium Level 1.9, Total Bilirubin 0.7, Aspartate Amino Transf (AST/SGOT) 19, Alanine Aminotransferase ( ALT/SGPT) 11, Alkaline Phosphatase 64, C-Reactive Protein, Quantitative 0.8H, Pro-B-Type Natriuretic Peptide 566H, Total Protein 6.6, Albumin 3.9, Globulin 2.7, Albumin/Globulin Ratio 1.4 Height (Feet): 5 Height (Inches): 5.00 Weight (Pounds): 120 General Appearance: confused Cardiovascular: regular rhythm Respiratory/Chest: lungs clear Long Roman MD Nov 01, 2016 15:39
[2016-11-02 03:04] VITALS: BP 126/86
[2016-11-02 07:13] VITALS: BP 127/85
[2016-11-02] MEDS: Thiamine 100mg tab ORAL SCH (08:29)
--- NOTE | 2016-11-02 09:46 | General Progress Note ---
Assessment/Plan Status: stable Assessment/Plan status: Dehydration- Encephalopathy- ? Sepsis UTI Scabies Plan: DC rossi DC IV monitor labs and renal parameters po supplements per neuro Subjective ROS Limited/Unobtainable: No Allergies: Coded Allergies: No Known Allergies (Unverified , 10/30/16) Objective Last 24 Hour Vital Signs Date Time Temp Pulse Resp B/P Pulse Ox O2 Delivery O2 Flow Rate FiO2 11/02/16 07:13 97.7 18 127/85 99 Room Air 11/02/16 03:04 97.5 76 17 126/86 98 Room Air 11/01/16 23:09 97.3 74 17 122/80 98 Room Air 11/01/16 19:04 98.1 83 18 122/79 98 Room Air 11/01/16 16:00 98.1 72 16 127/93 99 Room Air 11/01/16 12:15 97.5 91 15 120/81 98 Room Air Intake and Output 11/01/16 11/02/16 19:00 07:00 Intake Total 1110 ml Output Total 300 ml Balance 810 ml Intake Oral 1000 ml IV Total 110 ml Output Urine Total 300 ml # Voids 4 3 # Bowel Movements 1 Height (Feet): 5 Height (Inches): 5.00 Weight (Pounds): 120 General Appearance: no apparent distress Objective no change IZABELLA TURCIOS Nov 02, 2016 09:46
[2016-11-02] MEDS: Vitamin B12 1000mcg/ml Inj IM SCH (10:50)
[2016-11-02] MEDS ORDERED: Vitamin D 50,000 units cap ORAL SCH (11:00)
[2016-11-02 11:38] VITALS: BP 119/74
--- NOTE | 2016-11-02 13:41 | General Progress Note ---
Assessment/Plan Problem List: (1) Altered mental status ICD Codes: R41.82 - Altered mental status, unspecified SNOMED: 661451906 (2) Encephalopathy acute ICD Codes: G93.40 - Encephalopathy, unspecified SNOMED: 8289344 (3) Sepsis ICD Codes: A41.9 - Sepsis, unspecified organism SNOMED: 99462402 Qualifiers: Qualified Codes: A41.9 - Sepsis, unspecified organism Status: progressing Assessment/Plan ams s/p LP ams await culture results afebrile dont know the baseline mentation Subjective ROS Limited/Unobtainable: Yes Allergies: Coded Allergies: No Known Allergies (Unverified , 10/30/16) Objective Last 24 Hour Vital Signs Date Time Temp Pulse Resp B/P Pulse Ox O2 Delivery O2 Flow Rate FiO2 11/02/16 11:38 97.9 85 19 119/74 99 Room Air 11/02/16 07:13 97.7 18 127/85 99 Room Air 11/02/16 03:04 97.5 76 17 126/86 98 Room Air 11/01/16 23:09 97.3 74 17 122/80 98 Room Air 11/01/16 19:04 98.1 83 18 122/79 98 Room Air 11/01/16 16:00 98.1 72 16 127/93 99 Room Air Intake and Output 11/01/16 11/02/16 19:00 07:00 Intake Total 1110 ml Output Total 300 ml Balance 810 ml Intake Oral 1000 ml IV Total 110 ml Output Urine Total 300 ml # Voids 4 3 # Bowel Movements 1 Height (Feet): 5 Height (Inches): 5.00 Weight (Pounds): 120 Long Roman MD Nov 02, 2016 13:41
[2016-11-02 15:19] VITALS: BP 106/71
--- NOTE | 2016-11-02 16:53 | Infectious Diseases Prog Note ---
Assessment/Plan Problems: (1) Sepsis Assessment & Plan: ruled out with negative blood culture , off antibiotics, monitor clinically (2) Altered mental status Assessment & Plan: improved . no evidence of meningitis, S/P LP, CSF fluids culture is negative , monitor clinically for now (3) Scabies Assessment & Plan: S/P Elimite (4) Elbow mass Assessment & Plan: suspect abscess S/P auto drain , improved on wide spectrum abx. Subjective Constitutional: Reports: no symptoms HEENT: Reports: no symptoms Respiratory: Reports: no symptoms Breasts: Reports: no symptoms Cardiovascular: Reports: no symptoms Gastrointestinal/Abdominal: Reports: no symptoms Genitourinary: Reports: no symptoms Neurologic: Reports: no symptoms Psychiatric: Reports: no symptoms Skin: Reports: no symptoms Endocrine: Reports: no symptoms Hematologic: Reports: no symptoms Musculoskeletal: Reports: no symptoms Allergies: Coded Allergies: No Known Allergies (Unverified , 10/30/16) Subjective he was awake and alert , Finnish speaker, not in distress Objective Vital Signs Last 24 Hour Vital Signs Date Time Temp Pulse Resp B/P Pulse Ox O2 Delivery O2 Flow Rate FiO2 11/02/16 15:19 97.6 91 18 106/71 98 Room Air 11/02/16 11:38 97.9 85 19 119/74 99 Room Air 11/02/16 07:13 97.7 18 127/85 99 Room Air 11/02/16 03:04 97.5 76 17 126/86 98 Room Air 11/01/16 23:09 97.3 74 17 122/80 98 Room Air 11/01/16 19:04 98.1 83 18 122/79 98 Room Air Height (Feet): 5 Height (Inches): 5.00 Weight (Pounds): 120 General Appearance: WD/WN, no acute distress HEENT: normocephalic, atraumatic, anicteric, mucous membranes moist Respiratory/Chest: chest wall non-tender, lungs clear, normal breath sounds, no respiratory distress, no accessory muscle use Cardiovascular: normal peripheral pulses, normal rate, regular rhythm, no gallop/murmur, no JVD Abdomen: normal bowel sounds, soft, non tender, no organomegaly, non distended , no mass, no scars Extremities: no cyanosis, no clubbing Skin: no rash, no lesions, ulcers Current Medications Medications (Trade) Dose Ordered Sig/Gi Route PRN Reason Start Time Stop Time Status Last Admin Dose Admin Acetaminophen (Tylenol) 650 mg Q4H PRN RECTAL Fever/Headache/Mild Pain 10/29/16 17:30 11/28/16 17:29 Clonidine HCl (Catapres) 0.1 mg Q4H PRN ORAL SBP > 160 OR DBP > 100 10/31/16 14:15 11/30/16 14:14 Cyanocobalamin (Vitamin B12) 1,000 mcg DAILY IM 11/02/16 11:00 11/04/16 09:01 11/02/16 10:50 Ergocalciferol (Drisdol) 50,000 intlu QWEEK ORAL 11/02/16 11:00 12/02/16 10:59 11/02/16 10:50 Folic Acid (Folate) 2 mg DAILY ORAL 11/02/16 11:00 12/02/16 10:59 11/02/16 10:50 Lorazepam (Ativan) 1 mg Q6H PRN ORAL For agitation 10/31/16 14:15 11/07/16 14:14 11/01/16 21:36 Thiamine HCl (Vitamin B1) 100 mg DAILY ORAL 11/01/16 14:00 12/01/16 13:59 11/02/16 08:29 Jair Cohen M.D. Nov 02, 2016 16:53
[2016-11-02 20:00] VITALS: BP 121/89
[2016-11-02 23:58] VITALS: BP 136/97
[2016-11-03 04:00] VITALS: BP 114/78
[2016-11-03 08:00] VITALS: BP 102/67
[2016-11-03] MEDS: Thiamine 100mg tab ORAL SCH (09:01)
[2016-11-03] MEDS: Vitamin B12 1000mcg/ml Inj IM SCH (09:01)
--- NOTE | 2016-11-03 10:25 | General Progress Note ---
Assessment/Plan Status: stable Assessment/Plan status: Dehydration- Encephalopathy- ? Sepsis UTI Scabies Plan: No labs today DC planning? Subjective ROS Limited/Unobtainable: No Constitutional: Reports: malaise Allergies: Coded Allergies: No Known Allergies (Unverified , 10/30/16) Objective Last 24 Hour Vital Signs Date Time Temp Pulse Resp B/P Pulse Ox O2 Delivery O2 Flow Rate FiO2 11/03/16 04:00 98.1 74 20 114/78 98 Room Air 11/02/16 23:58 97.7 88 20 136/97 99 Room Air 11/02/16 20:00 97.9 88 20 121/89 99 Room Air 11/02/16 15:19 97.6 91 18 106/71 98 Room Air 11/02/16 11:38 97.9 85 19 119/74 99 Room Air Intake and Output 11/02/16 11/03/16 19:00 07:00 Intake Total 600 ml Balance 600 ml Intake Oral 600 ml # Voids 4 Height (Feet): 5 Height (Inches): 5.00 Weight (Pounds): 120 General Appearance: no apparent distress Objective no change IZABELLA TURCIOS Nov 03, 2016 10:25
[2016-11-03 12:00] VITALS: BP 102/66
--- NOTE | 2016-11-03 12:07 | General Progress Note ---
Assessment/Plan Assessment/Plan ASSESSMENT AND PLAN: # Thrombocytopenia is likely related to underlying infection v medication induced ---> hepatitis and hiv are negative # Anemia of chronic disease, has been reviewed with a anemia w/u, currently negative # Sepsis. on abx as per ID service # Altered mental status, rule out meningitis. Status post lumbar puncture # Possible scabies. Continual Elimite one more course. # Left elbow and left foot skin infection with possible abscess, s/p drainage Subjective Date patient seen: Nov 02, 2016 Constitutional: Reports: no symptoms Cardiovascular: Reports: chest pain Respiratory: Reports: no symptoms Gastrointestinal/Abdominal: Reports: no symptoms Genitourinary: Reports: burning Neurologic/Psychiatric: Reports: no symptoms Endocrine: Reports: no symptoms Hematologic/Lymphatic: Reports: anemia Allergies: Coded Allergies: No Known Allergies (Unverified , 10/30/16) Subjective stable, no events overnight, no night sweats Objective Last 24 Hour Vital Signs Date Time Temp Pulse Resp B/P Pulse Ox O2 Delivery O2 Flow Rate FiO2 11/03/16 04:00 98.1 74 20 114/78 98 Room Air 11/02/16 23:58 97.7 88 20 136/97 99 Room Air 11/02/16 20:00 97.9 88 20 121/89 99 Room Air 11/02/16 15:19 97.6 91 18 106/71 98 Room Air Intake and Output 11/02/16 11/03/16 19:00 07:00 Intake Total 600 ml Balance 600 ml Intake Oral 600 ml # Voids 4 Height (Feet): 5 Height (Inches): 5.00 Weight (Pounds): 120 General Appearance: alert EENT: normal ENT inspection Neck: supple Cardiovascular: regular rhythm Respiratory/Chest: lungs clear Abdomen: no mass Extremities: normal range of motion Edema: no edema noted Leg (L), no edema noted Leg (R) Edema: mild edema Neurologic: alert Skin: warm/dry Eliu Vela Nov 03, 2016 12:07
[2016-11-03 16:00] VITALS: BP 103/74
--- NOTE | 2016-11-03 16:17 | Infectious Diseases Prog Note ---
Assessment/Plan Problems: (1) Sepsis Assessment & Plan: ruled out with negative blood culture , off antibiotics, monitor clinically (2) Altered mental status Assessment & Plan: improved . no evidence of meningitis, S/P LP, CSF fluids culture is negative , monitor clinically for now (3) Scabies Assessment & Plan: S/P Elimite (4) Elbow mass Assessment & Plan: suspect abscess S/P auto drain , improved on wide spectrum abx.continue local wound care Subjective Constitutional: Reports: no symptoms HEENT: Reports: no symptoms Respiratory: Reports: no symptoms Breasts: Reports: no symptoms Cardiovascular: Reports: no symptoms Gastrointestinal/Abdominal: Reports: no symptoms Genitourinary: Reports: no symptoms Neurologic: Reports: no symptoms Psychiatric: Reports: no symptoms Skin: Reports: no symptoms Endocrine: Reports: no symptoms Hematologic: Reports: no symptoms Musculoskeletal: Reports: no symptoms Allergies: Coded Allergies: No Known Allergies (Unverified , 10/30/16) Subjective he was awake and alert , Greek speaker, not in distress Objective Vital Signs Last 24 Hour Vital Signs Date Time Temp Pulse Resp B/P Pulse Ox O2 Delivery O2 Flow Rate FiO2 11/03/16 04:00 98.1 74 20 114/78 98 Room Air 11/02/16 23:58 97.7 88 20 136/97 99 Room Air 11/02/16 20:00 97.9 88 20 121/89 99 Room Air Height (Feet): 5 Height (Inches): 5.00 Weight (Pounds): 120 General Appearance: WD/WN, no acute distress HEENT: normocephalic, atraumatic, anicteric, mucous membranes moist, PERRL Respiratory/Chest: chest wall non-tender, lungs clear, normal breath sounds, no respiratory distress, no accessory muscle use Cardiovascular: normal peripheral pulses, normal rate, regular rhythm, no gallop/murmur, no JVD Abdomen: normal bowel sounds, soft, non tender, no organomegaly, non distended , no mass, no scars Extremities: no cyanosis, no clubbing Skin: no rash, no lesions, ulcers Current Medications Medications (Trade) Dose Ordered Sig/Gi Route PRN Reason Start Time Stop Time Status Last Admin Dose Admin Acetaminophen (Tylenol) 650 mg Q4H PRN RECTAL Fever/Headache/Mild Pain 10/29/16 17:30 11/28/16 17:29 Clonidine HCl (Catapres) 0.1 mg Q4H PRN ORAL SBP > 160 OR DBP > 100 10/31/16 14:15 11/30/16 14:14 Cyanocobalamin (Vitamin B12) 1,000 mcg DAILY IM 11/02/16 11:00 11/04/16 09:01 11/03/16 09:01 Ergocalciferol (Drisdol) 50,000 intlu QWEEK ORAL 11/02/16 11:00 12/02/16 10:59 11/02/16 10:50 Folic Acid (Folate) 2 mg DAILY ORAL 11/02/16 11:00 12/02/16 10:59 11/03/16 09:01 Lorazepam (Ativan) 1 mg Q6H PRN ORAL For agitation 10/31/16 14:15 11/07/16 14:14 11/01/16 21:36 Thiamine HCl (Vitamin B1) 100 mg DAILY ORAL 11/01/16 14:00 12/01/16 13:59 11/03/16 09:01 Jair Cohen M.D. Nov 03, 2016 16:17
[2016-11-03 20:00] VITALS: BP 101/64
--- NOTE | 2016-11-03 21:07 | General Progress Note ---
Assessment/Plan Problem List: (1) Altered mental status ICD Codes: R41.82 - Altered mental status, unspecified SNOMED: 333885242 (2) Encephalopathy acute ICD Codes: G93.40 - Encephalopathy, unspecified SNOMED: 1836731 (3) Sepsis ICD Codes: A41.9 - Sepsis, unspecified organism SNOMED: 91146519 Qualifiers: Qualified Codes: A41.9 - Sepsis, unspecified organism Status: progressing Assessment/Plan ams s/p LP ams hallucinating consulted dr rodgers Subjective ROS Limited/Unobtainable: Yes Constitutional: Reports: no symptoms Allergies: Coded Allergies: No Known Allergies (Unverified , 10/30/16) Objective Last 24 Hour Vital Signs Date Time Temp Pulse Resp B/P Pulse Ox O2 Delivery O2 Flow Rate FiO2 11/03/16 20:00 97.5 76 18 101/64 99 Room Air 11/03/16 16:00 98.1 75 20 103/74 97 Room Air 11/03/16 12:00 97.7 17 102/66 98 Room Air 11/03/16 08:00 97.8 94 18 102/67 99 Room Air 11/03/16 04:00 98.1 74 20 114/78 98 Room Air 11/02/16 23:58 97.7 88 20 136/97 99 Room Air Intake and Output 11/02/16 11/03/16 19:00 07:00 Intake Total 600 ml Balance 600 ml Intake Oral 600 ml # Voids 4 Height (Feet): 5 Height (Inches): 5.00 Weight (Pounds): 120 General Appearance: confused Respiratory/Chest: lungs clear Long Roman MD Nov 03, 2016 21:07
[2016-11-03 23:59] VITALS: BP 93/63
[2016-11-04 04:00] VITALS: BP 108/76
[2016-11-04 06:54] LABS: ALANINE AMINOTRANSFERASE 12 U/L (3-41); ALBUMIN/GLOBULIN RATIO 1.3 (1.0-2.7); ANION GAP 17 (5-15); ASPARTATE AMINO TRANSFERASE 12 U/L (5-40); CALCIUM 9.4 mg/dL (8.6-10.2); CARBON DIOXIDE 26 mEQ/L (20-30); CHLORIDE 97 mEQ/L (98-107); CREATININE 0.8 mg/dL (0.7-1.2); GLOMERULAR FILTRATION RATE > 60 mL/min (>60); HEMOLYSIS 4; PHOSPHORUS 3.6 mg/dL (2.5-4.8); POTASSIUM 4.1 mEQ/L (3.4-4.9); SODIUM 140 mEQ/L (135-145); TOTAL PROTEIN 7.4 g/dL (6.6-8.7)
[2016-11-04 07:02] LABS: BASOPHILS % (AUTO) 0.8 % (0.0-2.0); EOSINOPHILS % (AUTO) 14.3 % (0.0-3.0); LYMPHOCYTES % (AUTO) 23.8 % (20.0-45.0); MEAN CORPUSCULAR HGB CONC 33.7 G/DL (32.0-36.0); MEAN CORPUSCULAR VOLUME 98 FL (80-99); MEAN PLATELET VOLUME 8.5 FL (6.5-10.1); MONOCYTES % (AUTO) 11.9 % (1.0-10.0); NEUTROPHILS % (AUTO) 49.1 % (45.0-75.0); PLATELET COUNT 140 K/UL (150-450); RED BLOOD COUNT 3.85 M/UL (4.70-6.10); RED CELL DISTRIBUTION WIDTH 13.2 % (11.6-14.8); WHITE BLOOD COUNT 7.4 K/UL (4.8-10.8)
[2016-11-04 08:00] VITALS: BP 108/63
[2016-11-04 08:00] LABS: URIC ACID 4.2 mg/dL (3.0-7.5)
[2016-11-04] MEDS: Thiamine 100mg tab ORAL SCH (08:18)
[2016-11-04] MEDS: Vitamin B12 1000mcg/ml Inj IM SCH (08:18)
--- NOTE | 2016-11-04 11:31 | General Progress Note ---
Assessment/Plan Status: stable Assessment/Plan status: Dehydration- Encephalopathy- ? Sepsis UTI Scabies Plan: No labs today DC planning? Subjective ROS Limited/Unobtainable: No Allergies: Coded Allergies: No Known Allergies (Unverified , 10/30/16) Objective Last 24 Hour Vital Signs Date Time Temp Pulse Resp B/P Pulse Ox O2 Delivery O2 Flow Rate FiO2 11/04/16 08:00 96.4 89 18 108/63 96 Room Air 11/04/16 04:00 96.8 72 18 108/76 98 Room Air 11/03/16 23:59 97.9 70 18 93/63 99 Room Air 11/03/16 20:00 97.5 76 18 101/64 99 Room Air 11/03/16 16:00 98.1 75 20 103/74 97 Room Air 11/03/16 12:00 97.7 17 102/66 98 Room Air Intake and Output 11/03/16 11/04/16 18:59 06:59 Intake Total 1200 ml 250 ml Output Total 400 ml Balance 1200 ml -150 ml Intake Oral 1200 ml 250 ml Output Urine Total 400 ml # Voids 5 1 Laboratory Tests 11/04/16 06:00: White Blood Count 7.4, Red Blood Count 3.85L, Hemoglobin 12.7L, Hematocrit 37.7L , Mean Corpuscular Volume 98, Mean Corpuscular Hemoglobin 33.0H, Mean Corpuscular Hemoglobin Concent 33.7, Red Cell Distribution Width 13.2, Platelet Count 140L, Mean Platelet Volume 8.5, Neutrophils (%) (Auto) 49.1, Lymphocytes ( %) (Auto) 23.8, Monocytes (%) (Auto) 11.9H, Eosinophils (%) (Auto) 14.3H, Basophils (%) (Auto) 0.8, Sodium Level 140, Potassium Level 4.1, Chloride Level 97L, Carbon Dioxide Level 26, Anion Gap 17H, Blood Urea Nitrogen 12, Creatinine 0.8, Estimat Glomerular Filtration Rate > 60, Glucose Level 90, Uric Acid 4.2, Calcium Level 9.4, Phosphorus Level 3.6, Total Bilirubin 0.5, Aspartate Amino Transf (AST/SGOT) 12, Alanine Aminotransferase (ALT/SGPT) 12, Alkaline Phosphatase 74, Total Protein 7.4, Albumin 4.2, Globulin 3.2, Albumin/Globulin Ratio 1.3 Height (Feet): 5 Height (Inches): 5.00 Weight (Pounds): 120 General Appearance: no apparent distress Objective no change IZABELLA TURCIOS Nov 04, 2016 11:31
[2016-11-04 12:00] VITALS: BP 110/75
--- NOTE | 2016-11-04 12:56 | Infectious Diseases Prog Note ---
Assessment/Plan Problems: (1) Altered mental status Assessment & Plan: improved . no evidence of meningitis, S/P LP, CSF fluids culture is negative , monitor clinically for now (2) Elbow mass Assessment & Plan: suspect abscess S/P auto drain , improved on wide spectrum abx.continue local wound care (3) Sepsis Assessment & Plan: ruled out with negative blood culture , off antibiotics, monitor clinically Subjective Constitutional: Reports: no symptoms HEENT: Reports: no symptoms Respiratory: Reports: no symptoms Breasts: Reports: no symptoms Cardiovascular: Reports: no symptoms Gastrointestinal/Abdominal: Reports: no symptoms Genitourinary: Reports: no symptoms Neurologic: Reports: no symptoms Psychiatric: Reports: no symptoms Skin: Reports: no symptoms Endocrine: Reports: no symptoms Hematologic: Reports: no symptoms Musculoskeletal: Reports: no symptoms Allergies: Coded Allergies: No Known Allergies (Unverified , 10/30/16) Subjective he was awake and alert , [place] speaker, not in distress Objective Vital Signs Last 24 Hour Vital Signs Date Time Temp Pulse Resp B/P Pulse Ox O2 Delivery O2 Flow Rate FiO2 11/04/16 08:00 96.4 89 18 108/63 96 Room Air 11/04/16 04:00 96.8 72 18 108/76 98 Room Air 11/03/16 23:59 97.9 70 18 93/63 99 Room Air 11/03/16 20:00 97.5 76 18 101/64 99 Room Air 11/03/16 16:00 98.1 75 20 103/74 97 Room Air Height (Feet): 5 Height (Inches): 5.00 Weight (Pounds): 120 General Appearance: WD/WN, no acute distress HEENT: normocephalic, atraumatic, anicteric, mucous membranes moist, EOMI, pharynx normal, supple, no JVD Respiratory/Chest: chest wall non-tender, lungs clear, normal breath sounds, no respiratory distress, no accessory muscle use Cardiovascular: normal peripheral pulses, normal rate, regular rhythm, no gallop/murmur Abdomen: normal bowel sounds, soft, non tender, no organomegaly, non distended , no mass, no scars Extremities: no cyanosis, no clubbing Skin: no rash, no lesions, ulcers Laboratory Tests Test 11/04/16 06:00 White Blood Count 7.4 K/UL (4.8-10.8) Red Blood Count 3.85 M/UL (4.70-6.10) L Hemoglobin 12.7 G/DL (14.2-18.0) L Hematocrit 37.7 % (42.0-52.0) L Mean Corpuscular Volume 98 FL (80-99) Mean Corpuscular Hemoglobin 33.0 PG (27.0-31.0) H Mean Corpuscular Hemoglobin Concent 33.7 G/DL (32.0-36.0) Red Cell Distribution Width 13.2 % (11.6-14.8) Platelet Count 140 K/UL (150-450) L Mean Platelet Volume 8.5 FL (6.5-10.1) Neutrophils (%) (Auto) 49.1 % (45.0-75.0) Lymphocytes (%) (Auto) 23.8 % (20.0-45.0) Monocytes (%) (Auto) 11.9 % (1.0-10.0) H Eosinophils (%) (Auto) 14.3 % (0.0-3.0) H Basophils (%) (Auto) 0.8 % (0.0-2.0) Sodium Level 140 mEQ/L (135-145) Potassium Level 4.1 mEQ/L (3.4-4.9) Chloride Level 97 mEQ/L (98-107) L Carbon Dioxide Level 26 mEQ/L (20-30) Anion Gap 17 (5-15) H Blood Urea Nitrogen 12 mg/dL (7-23) Creatinine 0.8 mg/dL (0.7-1.2) Estimat Glomerular Filtration Rate > 60 mL/min (>60) Glucose Level 90 mg/dL (74-106) Uric Acid 4.2 mg/dL (3.0-7.5) Calcium Level 9.4 mg/dL (8.6-10.2) Phosphorus Level 3.6 mg/dL (2.5-4.8) Total Bilirubin 0.5 mg/dL (0.0-1.2) Aspartate Amino Transf (AST/SGOT) 12 U/L (5-40) Alanine Aminotransferase (ALT/SGPT) 12 U/L (3-41) Alkaline Phosphatase 74 U/L (40-129) Total Protein 7.4 g/dL (6.6-8.7) Albumin 4.2 g/dL (3.5-5.2) Globulin 3.2 g/dL Albumin/Globulin Ratio 1.3 (1.0-2.7) Current Medications Medications (Trade) Dose Ordered Sig/Gi Route PRN Reason Start Time Stop Time Status Last Admin Dose Admin Acetaminophen (Tylenol) 650 mg Q4H PRN RECTAL Fever/Headache/Mild Pain 10/29/16 17:30 11/28/16 17:29 Clonidine HCl (Catapres) 0.1 mg Q4H PRN ORAL SBP > 160 OR DBP > 100 10/31/16 14:15 11/30/16 14:14 Ergocalciferol (Drisdol) 50,000 intlu QWEEK ORAL 11/02/16 11:00 12/02/16 10:59 11/02/16 10:50 Folic Acid (Folate) 2 mg DAILY ORAL 11/02/16 11:00 12/02/16 10:59 11/04/16 08:18 Lorazepam (Ativan) 1 mg Q6H PRN ORAL For agitation 10/31/16 14:15 11/07/16 14:14 11/01/16 21:36 Thiamine HCl (Vitamin B1) 100 mg DAILY ORAL 11/01/16 14:00 12/01/16 13:59 11/04/16 08:18 Jair Cohen M.D. Nov 04, 2016 12:56
--- NOTE | 2016-11-04 16:15 | General Progress Note ---
Assessment/Plan Problem List: (1) Altered mental status ICD Codes: R41.82 - Altered mental status, unspecified SNOMED: 691978416 (2) Encephalopathy acute ICD Codes: G93.40 - Encephalopathy, unspecified SNOMED: 1362579 (3) Sepsis ICD Codes: A41.9 - Sepsis, unspecified organism SNOMED: 95696136 Qualifiers: Qualified Codes: A41.9 - Sepsis, unspecified organism Status: progressing Assessment/Plan afebrile vitals stable ams hallucinating poor historian Subjective ROS Limited/Unobtainable: Yes Constitutional: Reports: no symptoms Allergies: Coded Allergies: No Known Allergies (Unverified , 10/30/16) Objective Last 24 Hour Vital Signs Date Time Temp Pulse Resp B/P Pulse Ox O2 Delivery O2 Flow Rate FiO2 11/04/16 12:00 98.4 84 18 110/75 95 Room Air 11/04/16 08:00 96.4 89 18 108/63 96 Room Air 11/04/16 04:00 96.8 72 18 108/76 98 Room Air 11/03/16 23:59 97.9 70 18 93/63 99 Room Air 11/03/16 20:00 97.5 76 18 101/64 99 Room Air Intake and Output 11/03/16 11/04/16 19:00 07:00 Intake Total 1200 ml 250 ml Output Total 400 ml Balance 1200 ml -150 ml Intake Oral 1200 ml 250 ml Output Urine Total 400 ml # Voids 5 1 Laboratory Tests 11/04/16 06:00: White Blood Count 7.4, Red Blood Count 3.85L, Hemoglobin 12.7L, Hematocrit 37.7L , Mean Corpuscular Volume 98, Mean Corpuscular Hemoglobin 33.0H, Mean Corpuscular Hemoglobin Concent 33.7, Red Cell Distribution Width 13.2, Platelet Count 140L, Mean Platelet Volume 8.5, Neutrophils (%) (Auto) 49.1, Lymphocytes ( %) (Auto) 23.8, Monocytes (%) (Auto) 11.9H, Eosinophils (%) (Auto) 14.3H, Basophils (%) (Auto) 0.8, Sodium Level 140, Potassium Level 4.1, Chloride Level 97L, Carbon Dioxide Level 26, Anion Gap 17H, Blood Urea Nitrogen 12, Creatinine 0.8, Estimat Glomerular Filtration Rate > 60, Glucose Level 90, Uric Acid 4.2, Calcium Level 9.4, Phosphorus Level 3.6, Total Bilirubin 0.5, Aspartate Amino Transf (AST/SGOT) 12, Alanine Aminotransferase (ALT/SGPT) 12, Alkaline Phosphatase 74, Total Protein 7.4, Albumin 4.2, Globulin 3.2, Albumin/Globulin Ratio 1.3 Height (Feet): 5 Height (Inches): 5.00 Weight (Pounds): 120 General Appearance: confused Neck: supple Cardiovascular: normal rate Long Roman MD Nov 04, 2016 16:15
[2016-11-04 16:37] VITALS: BP 112/80
[2016-11-04 20:07] VITALS: BP 105/67
--- NOTE | 2016-11-04 22:16 | Consultation ---
DATE OF CONSULTATION: CONSULTING PHYSICIAN: Kd Palafox M.D. HISTORY OF PRESENT ILLNESS: This is a 51-year-old male with a history of alcohol dependence and major depressive disorder, brought to the emergency room when he was found on the street behaving in a bizarre manner. The patient has been hallucinating. The patient during the evaluation was disorganized, not engaged during the evaluation, and gets agitated and is bizarre. PAST PSYCHIATRIC HISTORY: The patient has a history of depression in the past. Unknown whether he is taking any medication. PAST MEDICAL HISTORY: Significant for high blood pressure. MENTAL STATUS EXAMINATION: The patient is alert, oriented, and able to answer questions. Mood is anxious. Affect is constricted, congruent with mood. Thought process is concrete. Thought content, no suicidal or homicidal ideation. Cognition is mildly impaired. Insight and judgment are impaired. ASSESSMENT: [place] I Major depressive disorder. Alcohol dependence. [place] II Deferred. [place] III As above. [place] IV Moderate. [place] V 25 PLAN: 1. We will start the patient on risperidone 2 mg at bedtime. 2. The patient is currently on thiamine and folic acid. He is also on Ativan as needed for his alcohol withdrawal. 3. We will continue to follow and readjust the medications. Kd Palafox M.D. DR: FAISAL JOB#: [id number] CC:
--- NOTE | 2016-11-04 22:37 | General Progress Note ---
Assessment/Plan Assessment/Plan ASSESSMENT AND PLAN: # Thrombocytopenia is likely related to underlying infection v medication induced ---> hepatitis and hiv are negative ---> has improved # Anemia of chronic disease, has been reviewed with a anemia w/u, currently negative # Sepsis. on abx as per ID service # Altered mental status, rule out meningitis. Status post lumbar puncture # Possible scabies. Continual Elimite one more course. # Left elbow and left foot skin infection with possible abscess, s/p drainage Subjective Constitutional: Reports: no symptoms HEENT: Reports: no symptoms Cardiovascular: Reports: no symptoms Respiratory: Reports: no symptoms Gastrointestinal/Abdominal: Reports: no symptoms Genitourinary: Reports: no symptoms Neurologic/Psychiatric: Reports: no symptoms Endocrine: Reports: no symptoms Hematologic/Lymphatic: Reports: anemia Allergies: Coded Allergies: No Known Allergies (Unverified , 10/30/16) Subjective no c/o pain, no bleeding Objective Last 24 Hour Vital Signs Date Time Temp Pulse Resp B/P Pulse Ox O2 Delivery O2 Flow Rate FiO2 11/04/16 20:07 98.4 81 16 105/67 96 Room Air 11/04/16 16:37 98.4 69 19 112/80 98 Room Air 11/04/16 12:00 98.4 84 18 110/75 95 Room Air 11/04/16 08:00 96.4 89 18 108/63 96 Room Air 11/04/16 04:00 96.8 72 18 108/76 98 Room Air 11/03/16 23:59 97.9 70 18 93/63 99 Room Air Intake and Output 11/03/16 11/04/16 19:00 07:00 Intake Total 1200 ml 250 ml Output Total 400 ml Balance 1200 ml -150 ml Intake Oral 1200 ml 250 ml Output Urine Total 400 ml # Voids 5 1 Laboratory Tests 11/04/16 06:00: White Blood Count 7.4, Red Blood Count 3.85L, Hemoglobin 12.7L, Hematocrit 37.7L , Mean Corpuscular Volume 98, Mean Corpuscular Hemoglobin 33.0H, Mean Corpuscular Hemoglobin Concent 33.7, Red Cell Distribution Width 13.2, Platelet Count 140L, Mean Platelet Volume 8.5, Neutrophils (%) (Auto) 49.1, Lymphocytes ( %) (Auto) 23.8, Monocytes (%) (Auto) 11.9H, Eosinophils (%) (Auto) 14.3H, Basophils (%) (Auto) 0.8, Sodium Level 140, Potassium Level 4.1, Chloride Level 97L, Carbon Dioxide Level 26, Anion Gap 17H, Blood Urea Nitrogen 12, Creatinine 0.8, Estimat Glomerular Filtration Rate > 60, Glucose Level 90, Uric Acid 4.2, Calcium Level 9.4, Phosphorus Level 3.6, Total Bilirubin 0.5, Aspartate Amino Transf (AST/SGOT) 12, Alanine Aminotransferase (ALT/SGPT) 12, Alkaline Phosphatase 74, Total Protein 7.4, Albumin 4.2, Globulin 3.2, Albumin/Globulin Ratio 1.3 Height (Feet): 5 Height (Inches): 5.00 Weight (Pounds): 120 General Appearance: no apparent distress, alert EENT: PERRL/EOMI Neck: non-tender Cardiovascular: normal rate Abdomen: soft Edema: no edema noted Pedal (L), no edema noted Pedal (R) Neurologic: no motor/sensory deficits Skin: warm/dry Eliu Vela Nov 04, 2016 22:37
[2016-11-05 00:03] VITALS: BP 120/80
[2016-11-05 04:24] VITALS: BP 125/75
[2016-11-05 08:00] VITALS: BP 100/62
[2016-11-05] MEDS: Thiamine 100mg tab ORAL SCH (08:15)
--- NOTE | 2016-11-05 08:52 | General Progress Note ---
Assessment/Plan Status: stable Assessment/Plan status: Dehydration- resolved Encephalopathy- ? Sepsis UTI Scabies Plan: DC planning? Subjective ROS Limited/Unobtainable: No Constitutional: Reports: malaise Allergies: Coded Allergies: No Known Allergies (Unverified , 10/30/16) Objective Last 24 Hour Vital Signs Date Time Temp Pulse Resp B/P Pulse Ox O2 Delivery O2 Flow Rate FiO2 11/05/16 08:00 97.7 88 20 100/62 99 Room Air 11/05/16 04:24 98.1 85 18 125/75 97 Room Air 11/05/16 00:03 97.9 82 17 120/80 96 Room Air 11/04/16 20:07 98.4 81 16 105/67 96 Room Air 11/04/16 16:37 98.4 69 19 112/80 98 Room Air 11/04/16 12:00 98.4 84 18 110/75 95 Room Air Intake and Output 11/04/16 11/05/16 19:00 07:00 Intake Total 1440 ml 480 ml Output Total 1 ml 1325 ml Balance 1439 ml -845 ml Intake Oral 1440 ml 480 ml Output Urine Total 1 ml 1325 ml # Voids 3 5 # Bowel Movements 1 Height (Feet): 5 Height (Inches): 5.00 Weight (Pounds): 120 General Appearance: no apparent distress Objective no change IZABELLA TURCIOS Nov 05, 2016 08:52
[2016-11-05 12:00] VITALS: BP 122/98
--- NOTE | 2016-11-05 12:50 | Infectious Diseases Prog Note ---
Assessment/Plan Problems: (1) Altered mental status Assessment & Plan: improved . no evidence of meningitis, S/P LP, CSF fluids culture is negative , monitor clinically for now (2) Elbow mass Assessment & Plan: suspect abscess S/P auto drain , improved on wide spectrum abx.continue local wound care (3) Sepsis Assessment & Plan: was ruled out with negative blood culture , off antibiotics , monitor clinically Subjective Constitutional: Reports: no symptoms HEENT: Reports: no symptoms Respiratory: Reports: no symptoms Breasts: Reports: no symptoms Cardiovascular: Reports: no symptoms Gastrointestinal/Abdominal: Reports: no symptoms Genitourinary: Reports: no symptoms Neurologic: Reports: no symptoms Psychiatric: Reports: no symptoms Skin: Reports: no symptoms Allergies: Coded Allergies: No Known Allergies (Unverified , 10/30/16) Subjective he was awake and alert , Italian speaker, not in distress Objective Vital Signs Last 24 Hour Vital Signs Date Time Temp Pulse Resp B/P Pulse Ox O2 Delivery O2 Flow Rate FiO2 11/05/16 08:00 97.7 88 20 100/62 99 Room Air 11/05/16 04:24 98.1 85 18 125/75 97 Room Air 11/05/16 00:03 97.9 82 17 120/80 96 Room Air 11/04/16 20:07 98.4 81 16 105/67 96 Room Air 11/04/16 16:37 98.4 69 19 112/80 98 Room Air Height (Feet): 5 Height (Inches): 5.00 Weight (Pounds): 120 General Appearance: WD/WN, no acute distress HEENT: normocephalic, atraumatic Respiratory/Chest: chest wall non-tender, lungs clear, normal breath sounds, no respiratory distress Cardiovascular: normal peripheral pulses, normal rate, regular rhythm, no gallop/murmur Abdomen: normal bowel sounds, soft, non tender, no organomegaly, non distended , no mass Extremities: no cyanosis, no clubbing Skin: no rash, no lesions, ulcers Current Medications Medications (Trade) Dose Ordered Sig/Gi Route PRN Reason Start Time Stop Time Status Last Admin Dose Admin Acetaminophen (Tylenol) 650 mg Q4H PRN RECTAL Fever/Headache/Mild Pain 10/29/16 17:30 11/28/16 17:29 Ergocalciferol (Drisdol) 50,000 intlu QWEEK ORAL 11/02/16 11:00 12/02/16 10:59 11/02/16 10:50 Folic Acid (Folate) 2 mg DAILY ORAL 11/02/16 11:00 12/02/16 10:59 11/05/16 08:13 Lorazepam (Ativan) 1 mg Q6H PRN ORAL For agitation 10/31/16 14:15 11/07/16 14:14 11/01/16 21:36 Risperidone (RisperDAL) 2 mg QHS ORAL 11/04/16 21:00 12/04/16 20:59 11/04/16 20:44 Thiamine HCl (Vitamin B1) 100 mg DAILY ORAL 11/01/16 14:00 12/01/16 13:59 11/05/16 08:15 Jair Cohen M.D. Nov 05, 2016 12:50
--- NOTE | 2016-11-05 14:53 | General Progress Note ---
Assessment/Plan Problem List: (1) Altered mental status ICD Codes: R41.82 - Altered mental status, unspecified SNOMED: 815610762 (2) Encephalopathy acute ICD Codes: G93.40 - Encephalopathy, unspecified SNOMED: 7023195 (3) Sepsis ICD Codes: A41.9 - Sepsis, unspecified organism SNOMED: 45751391 Qualifiers: Qualified Codes: A41.9 - Sepsis, unspecified organism Status: progressing Assessment/Plan afebrile vitals stable ams hallucinating cant get reliable history Subjective ROS Limited/Unobtainable: Yes Allergies: Coded Allergies: No Known Allergies (Unverified , 10/30/16) Objective Last 24 Hour Vital Signs Date Time Temp Pulse Resp B/P Pulse Ox O2 Delivery O2 Flow Rate FiO2 11/05/16 12:00 97.9 85 20 122/98 99 Room Air 11/05/16 08:00 97.7 88 20 100/62 99 Room Air 11/05/16 04:24 98.1 85 18 125/75 97 Room Air 11/05/16 00:03 97.9 82 17 120/80 96 Room Air 11/04/16 20:07 98.4 81 16 105/67 96 Room Air 11/04/16 16:37 98.4 69 19 112/80 98 Room Air Intake and Output 11/04/16 11/05/16 19:00 07:00 Intake Total 1440 ml 480 ml Output Total 1 ml 1325 ml Balance 1439 ml -845 ml Intake Oral 1440 ml 480 ml Output Urine Total 1 ml 1325 ml # Voids 3 5 # Bowel Movements 1 Height (Feet): 5 Height (Inches): 5.00 Weight (Pounds): 120 General Appearance: confused Neck: supple Cardiovascular: regular rhythm Respiratory/Chest: lungs clear Abdomen: soft Long Roman MD Nov 05, 2016 14:53
--- NOTE | 2016-11-05 14:59 | General Progress Note ---
Assessment/Plan Assessment/Plan ASSESSMENT AND PLAN: # Thrombocytopenia is likely related to underlying infection v medication induced ---> hepatitis and hiv are negative ---> has improved # Anemia of chronic disease, has been reviewed with a anemia w/u, currently negative # Sepsis. on abx as per ID service # Altered mental status, rule out meningitis. Status post lumbar puncture # Possible scabies. Continual Elimite one more course. # Left elbow and left foot skin infection with possible abscess, s/p drainage Subjective Constitutional: Reports: no symptoms HEENT: Reports: no symptoms Cardiovascular: Reports: no symptoms Respiratory: Reports: no symptoms Gastrointestinal/Abdominal: Reports: no symptoms Genitourinary: Reports: no symptoms Neurologic/Psychiatric: Reports: no symptoms Endocrine: Reports: no symptoms Hematologic/Lymphatic: Reports: anemia Allergies: Coded Allergies: No Known Allergies (Unverified , 10/30/16) Subjective no c/o pain, no bleeding, confused Objective Last 24 Hour Vital Signs Date Time Temp Pulse Resp B/P Pulse Ox O2 Delivery O2 Flow Rate FiO2 11/05/16 12:00 97.9 85 20 122/98 99 Room Air 11/05/16 08:00 97.7 88 20 100/62 99 Room Air 11/05/16 04:24 98.1 85 18 125/75 97 Room Air 11/05/16 00:03 97.9 82 17 120/80 96 Room Air 11/04/16 20:07 98.4 81 16 105/67 96 Room Air 11/04/16 16:37 98.4 69 19 112/80 98 Room Air Intake and Output 11/04/16 11/05/16 19:00 07:00 Intake Total 1440 ml 480 ml Output Total 1 ml 1325 ml Balance 1439 ml -845 ml Intake Oral 1440 ml 480 ml Output Urine Total 1 ml 1325 ml # Voids 3 5 # Bowel Movements 1 Height (Feet): 5 Height (Inches): 5.00 Weight (Pounds): 120 General Appearance: alert EENT: normal ENT inspection Neck: non-tender Cardiovascular: normal peripheral pulses Respiratory/Chest: lungs clear, respiratory distress Extremities: normal inspection Edema: 1+ Leg (L), 1+ Leg (R) Edema: mild edema Neurologic: oriented x 3 Skin: warm/dry Eliu Vela Nov 05, 2016 14:59
--- NOTE | 2016-11-05 15:51 | General Progress Note ---
Assessment/Plan Status: doing well, stable Assessment/Plan cont risperdal dc sitter Subjective Constitutional: Reports: malaise, weakness Neurologic/Psychiatric: Reports: anxiety, depressed, emotional problems Allergies: Coded Allergies: No Known Allergies (Unverified , 10/30/16) Subjective 1:1 Objective Last 24 Hour Vital Signs Date Time Temp Pulse Resp B/P Pulse Ox O2 Delivery O2 Flow Rate FiO2 11/05/16 12:00 97.9 85 20 122/98 99 Room Air 11/05/16 08:00 97.7 88 20 100/62 99 Room Air 11/05/16 04:24 98.1 85 18 125/75 97 Room Air 11/05/16 00:03 97.9 82 17 120/80 96 Room Air 11/04/16 20:07 98.4 81 16 105/67 96 Room Air 11/04/16 16:37 98.4 69 19 112/80 98 Room Air Intake and Output 11/04/16 11/05/16 19:00 07:00 Intake Total 1440 ml 480 ml Output Total 1 ml 1325 ml Balance 1439 ml -845 ml Intake Oral 1440 ml 480 ml Output Urine Total 1 ml 1325 ml # Voids 3 5 # Bowel Movements 1 Height (Feet): 5 Height (Inches): 5.00 Weight (Pounds): 120 General Appearance: no apparent distress, alert, thin Neurologic: alert, oriented x 3, responsive, depressed affect Kd Palafox M.D. Nov 05, 2016 15:51
[2016-11-05 16:00] VITALS: BP 109/75
[2016-11-05 20:00] VITALS: BP 115/78
--- NOTE | 2016-11-05 21:55 | General Progress Note ---
Assessment/Plan Assessment/Plan Assessment - resolved AMS - resolved abnormal bili - Scabies - dehydration Recommendation - IVF - supportive care - PO diet - OOB - d/c planning Subjective Allergies: Coded Allergies: No Known Allergies (Unverified , 10/30/16) Subjective feels OK no complaints eating Objective Last 24 Hour Vital Signs Date Time Temp Pulse Resp B/P Pulse Ox O2 Delivery O2 Flow Rate FiO2 11/05/16 20:00 97.7 72 19 115/78 99 Room Air 11/05/16 16:00 98.6 71 20 109/75 100 Room Air 11/05/16 12:00 97.9 85 20 122/98 99 Room Air 11/05/16 08:00 97.7 88 20 100/62 99 Room Air 11/05/16 04:24 98.1 85 18 125/75 97 Room Air 11/05/16 00:03 97.9 82 17 120/80 96 Room Air Intake and Output 11/04/16 11/05/16 19:00 07:00 Intake Total 1440 ml 480 ml Output Total 1 ml 1325 ml Balance 1439 ml -845 ml Intake Oral 1440 ml 480 ml Output Urine Total 1 ml 1325 ml # Voids 3 5 # Bowel Movements 1 Height (Feet): 5 Height (Inches): 5.00 Weight (Pounds): 120 Objective man , NAD NCAT supple CTA RRR Soft NT ND No edema CHAD BRICENO Nov 05, 2016 21:55
[2016-11-06 00:09] VITALS: BP 109/67
[2016-11-06 02:30] LABS: ABG ALLEN TEST POSITIVE; ABG BASE EXCESS -14.5; ABG PCO2 28.9 mmHg (35.0-45.0)
[2016-11-06] MEDS ORDERED: Acetaminophen 650 MG SUPP RECTAL PRN (03:58)
[2016-11-06] MEDS ORDERED: LORazepam 1mg tab ORAL PRN (03:59)
[2016-11-06 04:00] VITALS: BP 130/90
[2016-11-06] MEDS ORDERED: LORazepam Inj 2mg/ml 1ml IV PRN (04:00)
[2016-11-06 08:00] VITALS: BP 114/76
[2016-11-06] MEDS: Thiamine 100mg tab ORAL SCH (09:00)
[2016-11-06 12:00] VITALS: BP 112/42
--- NOTE | 2016-11-06 12:44 | General Progress Note ---
Assessment/Plan Status: stable Assessment/Plan status: Dehydration- resolved Encephalopathy- ? Sepsis UTI Scabies Plan: DC planning? Subjective ROS Limited/Unobtainable: No Constitutional: Reports: malaise Allergies: Coded Allergies: No Known Allergies (Unverified , 10/30/16) Objective Last 24 Hour Vital Signs Date Time Temp Pulse Resp B/P Pulse Ox O2 Delivery O2 Flow Rate FiO2 11/06/16 12:00 97.6 90 25 112/42 99 Room Air 11/06/16 08:00 98.4 83 20 114/76 100 Room Air 11/06/16 08:00 84 11/06/16 04:00 94 11/06/16 04:00 99.0 94 20 130/90 99 Room Air 11/06/16 00:09 97.7 63 18 109/67 99 Room Air 11/05/16 20:00 97.7 72 19 115/78 99 Room Air 11/05/16 16:00 98.6 71 20 109/75 100 Room Air Intake and Output 11/05/16 11/06/16 19:00 07:00 Intake Total 400 ml Output Total 200 ml Balance 400 ml -200 ml Intake Oral 400 ml Output Urine Total 200 ml # Voids 6 # Bowel Movements 1 Laboratory Tests 11/06/16 02:23: Arterial Blood pH 7.225*L, Arterial Blood Partial Pressure CO2 28.9L, Arterial Blood Partial Pressure O2 150.9H, Arterial Blood HCO3 11.7L, Arterial Blood Oxygen Saturation 98.6H, Arterial Blood Base Excess -14.5, Sandoval Test Positive Height (Feet): 5 Height (Inches): 5.00 Weight (Pounds): 120 General Appearance: no apparent distress Objective no change IZABELLA TURCIOS Nov 06, 2016 12:44
--- NOTE | 2016-11-06 14:20 | Infectious Diseases Prog Note ---
Assessment/Plan Problems: (1) Altered mental status Assessment & Plan: improved . no evidence of meningitis, S/P LP, CSF fluids culture is negative , monitor clinically for now (2) Elbow mass Assessment & Plan: suspect abscess S/P auto drain , improved on wide spectrum abx.continue local wound care (3) Sepsis Assessment & Plan: was ruled out with negative blood culture , off antibiotics , monitor clinically Subjective Constitutional: Reports: no symptoms HEENT: Reports: no symptoms Respiratory: Reports: no symptoms Breasts: Reports: no symptoms Cardiovascular: Reports: no symptoms Gastrointestinal/Abdominal: Reports: no symptoms Genitourinary: Reports: no symptoms Neurologic: Reports: no symptoms Psychiatric: Reports: no symptoms Skin: Reports: no symptoms Endocrine: Reports: no symptoms Hematologic: Reports: no symptoms Allergies: Coded Allergies: No Known Allergies (Unverified , 10/30/16) Subjective he was awake and alert , French speaker, not in distress Objective Vital Signs Last 24 Hour Vital Signs Date Time Temp Pulse Resp B/P Pulse Ox O2 Delivery O2 Flow Rate FiO2 11/06/16 12:00 86 11/06/16 12:00 97.6 90 25 112/42 99 Room Air 11/06/16 08:00 98.4 83 20 114/76 100 Room Air 11/06/16 08:00 84 11/06/16 04:00 94 11/06/16 04:00 99.0 94 20 130/90 99 Room Air 11/06/16 00:09 97.7 63 18 109/67 99 Room Air 11/05/16 20:00 97.7 72 19 115/78 99 Room Air 11/05/16 16:00 98.6 71 20 109/75 100 Room Air Height (Feet): 5 Height (Inches): 5.00 Weight (Pounds): 120 General Appearance: WD/WN, no acute distress HEENT: normocephalic, atraumatic, anicteric, mucous membranes moist, PERRL Respiratory/Chest: chest wall non-tender, lungs clear, normal breath sounds, no respiratory distress, no accessory muscle use Cardiovascular: normal peripheral pulses, normal rate, regular rhythm, no gallop/murmur Abdomen: normal bowel sounds, soft, non tender, no organomegaly, non distended , no mass, no scars Extremities: no cyanosis, no clubbing Skin: no rash, no lesions, ulcers Laboratory Tests Test 11/06/16 02:23 Arterial Blood pH 7.225 (7.350-7.450) Arterial Blood Partial Pressure CO2 28.9 mmHg (35.0-45.0) L Arterial Blood Partial Pressure O2 150.9 mmHg (75.0-100.0) H Arterial Blood HCO3 11.7 mmol/L (22.0-26.0) L Arterial Blood Oxygen Saturation 98.6 % (92.0-98.0) H Arterial Blood Base Excess -14.5 Sandoval Test Positive Current Medications Medications (Trade) Dose Ordered Sig/Gi Route PRN Reason Start Time Stop Time Status Last Admin Dose Admin Acetaminophen (Tylenol) 650 mg Q4H PRN RECTAL Fever/Headache/Mild Pain 11/06/16 03:58 12/06/16 03:57 Ergocalciferol (Drisdol) 50,000 intlu QWEEK ORAL 11/09/16 11:00 12/09/16 10:59 Folic Acid (Folate) 2 mg DAILY ORAL 11/06/16 09:00 12/06/16 08:59 Lorazepam (Ativan 2mg/ml 1ml) 1 mg Q2H PRN IV For Seizures 11/06/16 04:00 11/13/16 03:59 Lorazepam (Ativan) 1 mg Q6H PRN ORAL For agitation 11/06/16 03:59 11/13/16 03:58 Risperidone (RisperDAL) 2 mg QHS ORAL 11/06/16 21:00 12/06/16 20:59 Thiamine HCl (Vitamin B1) 100 mg DAILY ORAL 11/06/16 09:00 12/06/16 08:59 Jair Cohen M.D. Nov 06, 2016 14:20
[2016-11-06 16:00] VITALS: BP 110/73
--- NOTE | 2016-11-06 16:41 | General Progress Note ---
Assessment/Plan Problem List: (1) Altered mental status ICD Codes: R41.82 - Altered mental status, unspecified SNOMED: 435538408 (2) Encephalopathy acute ICD Codes: G93.40 - Encephalopathy, unspecified SNOMED: 1897376 (3) Sepsis ICD Codes: A41.9 - Sepsis, unspecified organism SNOMED: 81702375 Qualifiers: Qualified Codes: A41.9 - Sepsis, unspecified organism Status: progressing Assessment/Plan ams had seizure so rapid resonse was called and transfereed to monitered bed discussed w neuro Subjective ROS Limited/Unobtainable: Yes Allergies: Coded Allergies: No Known Allergies (Unverified , 10/30/16) Objective Last 24 Hour Vital Signs Date Time Temp Pulse Resp B/P Pulse Ox O2 Delivery O2 Flow Rate FiO2 11/06/16 12:00 86 11/06/16 12:00 97.6 90 25 112/42 99 Room Air 11/06/16 08:00 98.4 83 20 114/76 100 Room Air 11/06/16 08:00 84 11/06/16 04:00 94 11/06/16 04:00 99.0 94 20 130/90 99 Room Air 11/06/16 00:09 97.7 63 18 109/67 99 Room Air 11/05/16 20:00 97.7 72 19 115/78 99 Room Air Intake and Output 11/05/16 11/06/16 19:00 07:00 Intake Total 400 ml Output Total 200 ml Balance 400 ml -200 ml Intake Oral 400 ml Output Urine Total 200 ml # Voids 6 # Bowel Movements 1 Laboratory Tests 11/06/16 02:23: Arterial Blood pH 7.225*L, Arterial Blood Partial Pressure CO2 28.9L, Arterial Blood Partial Pressure O2 150.9H, Arterial Blood HCO3 11.7L, Arterial Blood Oxygen Saturation 98.6H, Arterial Blood Base Excess -14.5, Sandoval Test Positive Height (Feet): 5 Height (Inches): 5.00 Weight (Pounds): 120 General Appearance: confused Neck: supple Cardiovascular: normal rate Respiratory/Chest: lungs clear Abdomen: soft Long Roman MD Nov 06, 2016 16:41
--- NOTE | 2016-11-06 16:53 | Consultation ---
History of Present Illness General Chief Complaint: Altered Level of Consciousness Referring physician: Jessie Present Illness Allergies: Coded Allergies: No Known Allergies (Unverified , 10/30/16) Medication History Miscellaneous Medications Unable to Obtain Medications (Unable To Obtain Meds), (Reported) Patient History Healthcare decision maker Resuscitation status Full Code Advanced Directive on File Physical Exam Last 24 Hour Vital Signs Date Time Temp Pulse Resp B/P Pulse Ox O2 Delivery O2 Flow Rate FiO2 11/06/16 16:00 98.8 88 18 110/73 99 Room Air 11/06/16 12:00 86 11/06/16 12:00 97.6 90 25 112/42 99 Room Air 11/06/16 08:00 98.4 83 20 114/76 100 Room Air 11/06/16 08:00 84 11/06/16 04:00 94 11/06/16 04:00 99.0 94 20 130/90 99 Room Air 11/06/16 00:09 97.7 63 18 109/67 99 Room Air 11/05/16 20:00 97.7 72 19 115/78 99 Room Air Intake and Output 11/05/16 11/06/16 19:00 07:00 Intake Total 400 ml Output Total 200 ml Balance 400 ml -200 ml Intake Oral 400 ml Output Urine Total 200 ml # Voids 6 # Bowel Movements 1 Laboratory Tests Test 11/06/16 02:23 Arterial Blood pH 7.225 (7.350-7.450) Arterial Blood Partial Pressure CO2 28.9 mmHg (35.0-45.0) L Arterial Blood Partial Pressure O2 150.9 mmHg (75.0-100.0) H Arterial Blood HCO3 11.7 mmol/L (22.0-26.0) L Arterial Blood Oxygen Saturation 98.6 % (92.0-98.0) H Arterial Blood Base Excess -14.5 Sandoval Test Positive Height (Feet): 5 Height (Inches): 5.00 Weight (Pounds): 120 Medications Current Medications Medications (Trade) Dose Ordered Sig/Gi Route PRN Reason Start Time Stop Time Status Last Admin Dose Admin Acetaminophen (Tylenol) 650 mg Q4H PRN RECTAL Fever/Headache/Mild Pain 11/06/16 03:58 12/06/16 03:57 Ergocalciferol (Drisdol) 50,000 intlu QWEEK ORAL 11/09/16 11:00 12/09/16 10:59 Folic Acid (Folate) 2 mg DAILY ORAL 11/06/16 09:00 12/06/16 08:59 Lorazepam (Ativan 2mg/ml 1ml) 1 mg Q2H PRN IV For Seizures 11/06/16 04:00 11/13/16 03:59 Lorazepam (Ativan) 1 mg Q6H PRN ORAL For agitation 11/06/16 03:59 11/13/16 03:58 Risperidone (RisperDAL) 2 mg QHS ORAL 11/06/16 21:00 12/06/16 20:59 Thiamine HCl (Vitamin B1) 100 mg DAILY ORAL 11/06/16 09:00 12/06/16 08:59 LORENA BRWON Nov 06, 2016 16:53
--- NOTE | 2016-11-06 17:15 | Progress Note ---
SUBJECTIVE: The patient's mental condition is unchanged since previous encounter. He continues to be calm and less agitated. Psychotic symptoms are improved. He was engaged during the evaluation. MENTAL STATUS EXAMINATION: The patient is alert and oriented x3. Mood is neutral. Affect is constricted. Congruent with mood. No auditory hallucinations. No suicidal or homicidal ideations. Cognition is impaired. ASSESSMENT: Psychotic disorder. PLAN: 1. The patient will continue risperidone 2 mg at bedtime. 2. We will continue to follow the patient and readjust the medications. Kd Palafox M.D. DR: REBECCA JOB#: [id number] CC:
--- NOTE | 2016-11-06 17:24 | Neurology Progress Note ---
Interim History Interim History Interim History Mr. Pozo feels well now. In the early hours of today he was noted to have a "grand mal seizure" witnessed by a nurse. He does not remember the event. He continues to have severe amnesia and cannot remember the circumstances that brought him to the hospital. He continues to be guarded. He continues to be cognitively impoverished. He denies any new neurologic symptoms. Review of Systems Neuro Review of Systems Benign. Objective Physical Exam Last Vital Signs Date Time Temp Pulse Resp B/P Pulse Ox O2 Delivery O2 Flow Rate FiO2 11/06/16 16:00 98.8 88 18 110/73 99 Room Air Laboratory Tests Test 11/06/16 02:23 Arterial Blood pH 7.225 (7.350-7.450) Arterial Blood Partial Pressure CO2 28.9 mmHg (35.0-45.0) L Arterial Blood Partial Pressure O2 150.9 mmHg (75.0-100.0) H Arterial Blood HCO3 11.7 mmol/L (22.0-26.0) L Arterial Blood Oxygen Saturation 98.6 % (92.0-98.0) H Arterial Blood Base Excess -14.5 Sandoval Test Positive Neurologic Exam Objective PHYSICAL EXAMINATION: GENERAL: He is a well-developed, relatively well-nourished, sunburnt, gentleman, lying in bed, in no acute distress. HEAD: Normocephalic and atraumatic. EENT: Examination benign. NECK: No neck rigidity was observed. NEUROLOGIC EXAMINATION: MENTAL STATUS EXAMINATION: He was awake and alert. He was oriented to self and hospital. He did not know the name of the hospital and had no idea what the date, month or year was. He was able to recall 3/3 words immediately, but could not remember any of them in 1 minute and 3 minutes. He was unable to tell me who the present President was and who prior presidents were. He was unable to do simple mathematical problems. He was unable to tell me how to get from one place to the country to another. SPEECH: He had no dysarthria. LANGUAGE: He had problems with comprehension, repetition and expression of language. CRANIAL NERVE EXAMINATION: II: The visual li were intact to confrontation testing. III, IV & : External ocular movements were full and the pupils 3 mm in diameter, equal, round, regular and reactive to light. V: He had normal facial sensations and the temporales, masseters, and pterygoids functioned normally. VII: He had a trace left VII central facial paresis. VIII: He was able to hear well and had no nystagmus. IX: The palate moved symmetrically on phonation. X: He had no hoarseness of voice. XI: The sternocleidomastoids and trapezii functioned normally. XII: His tongue was in midline without any fasciculations or atrophy. MOTOR SYSTEM: The tone was normal in all four extremities. Examination of muscle mass revealed no focal wasting. Examination of power was exceedingly difficult to perform because of varying degrees of cooperation. He, however moved all four extremities with some generalized weakness and significantly poor effort. SENSORY EXAMINATION: He responded appropriately to deep pain. He was unable to cooperate for the sensory modalities. REFLEXES: Trace+ and bilaterally symmetrical at the biceps, triceps, brachioradialis, and knees. 0 at both ankles. The plantar responses were flexor bilaterally. STANCE & GAIT: Could not be tested. Impression/Recommendations Diagnostic Impression 1. Mr. Jai Pozo is a 51-year-old, right-handed, gentleman, who does have a past history of hypertension, depression, alcoholism and homelessness, who was brought into the [facility] emergency room by paramedics when he was found on the streets behaving in an unusual manner with his clothes soiled with urine. Since he has been here, his mental state has improved. 2. He feels better now but in the early hours of today he was noted to have a "grand mal seizure" by his nurse. He has significant cognitive dysfunction. 3. On neurological examination, at this time, he is oriented to self only and exhibits global cerebral dysfunction. He also has a trace left VII central facial paresis, is generally weak and has globally diminished reflexes. 4. Laboratory data on admission revealed that he had a significant leukocytosis with a WBC count of 11.6. The leukocytosis has now resolved with a WBC count of 8.2. His chemistry panel revealed an anion gap of 18, glucose elevated to 148, uric acid elevated to 8.1, CK elevated to 217, C-reactive protein elevated to 3.3, ProBNP elevated to 2842. A low B12 level at 330 and a normal TSH. His urine analysis revealed 2+ leukocyte esterase, 2-4 red blood cells and 5-10 white blood cells per high-power field. His toxicology screen was negative and his serum alcohol level is less than 10. 5. His CSF revealed 3620 red blood cells in tube #1 and 415 red blood cells in tube #4. The white blood cells were 25 in tube # 1 and 1 in tube #4. The protein was 35 and glucose was 81. 6. A CT scan of the brain without contrast revealed significant atrophy and in addition hydrocephalus ex vacuo with the right lateral ventricle larger than the left. 7. The patient's history, neurological examination, laboratory data and imaging studies are most compatible with resolving encephalopathy due to alcohol withdrawal and an infection, superimposed on an old psychiatric illness and/or alcoholic dementia. In addition, he also has a urinary tract infection and is B12 deficient. 8. He was noted to have a witnessed generalized tonic clonic seizure by his nurse. Recommendations 1. Continue present management. 2. Continue to treat the patient's infectious process in an aggressive manner. 3. Vitamin B12 1000 mcg subcutaneously monthly. 4. Mobilize with physical and occupational therapy. 5. Keppra 750 mg q 12 hours. 6. EEG to better delineate type of seizure disorder. Lilian Montes M.D., M.S.P.H. LILIAN MONTES Nov 06, 2016 17:24
--- NOTE | 2016-11-06 17:31 | General Progress Note ---
Assessment/Plan Assessment/Plan ASSESSMENT AND PLAN: # Thrombocytopenia is likely related to underlying infection v medication induced ---> hepatitis and hiv are negative ---> has improved # Anemia of chronic disease, has been reviewed with an anemia w/u, currently negative ---> h/h improving # Sepsis. on abx as per ID service # Altered mental status, rule out meningitis. Status post lumbar puncture # Possible scabies. Continual Elimite one more course. # Left elbow and left foot skin infection with possible abscess, s/p drainage Subjective Constitutional: Reports: no symptoms HEENT: Reports: no symptoms Cardiovascular: Reports: no symptoms Respiratory: Reports: no symptoms Gastrointestinal/Abdominal: Reports: no symptoms Genitourinary: Reports: no symptoms Neurologic/Psychiatric: Reports: no symptoms Endocrine: Reports: no symptoms Hematologic/Lymphatic: Reports: anemia Allergies: Coded Allergies: No Known Allergies (Unverified , 10/30/16) Subjective had seizure, no bleeding, confused Objective Last 24 Hour Vital Signs Date Time Temp Pulse Resp B/P Pulse Ox O2 Delivery O2 Flow Rate FiO2 11/06/16 16:00 98.8 88 18 110/73 99 Room Air 11/06/16 12:00 86 11/06/16 12:00 97.6 90 25 112/42 99 Room Air 11/06/16 08:00 98.4 83 20 114/76 100 Room Air 11/06/16 08:00 84 11/06/16 04:00 94 11/06/16 04:00 99.0 94 20 130/90 99 Room Air 11/06/16 00:09 97.7 63 18 109/67 99 Room Air 11/05/16 20:00 97.7 72 19 115/78 99 Room Air Intake and Output 11/05/16 11/06/16 19:00 07:00 Intake Total 400 ml Output Total 200 ml Balance 400 ml -200 ml Intake Oral 400 ml Output Urine Total 200 ml # Voids 6 # Bowel Movements 1 Laboratory Tests 11/06/16 02:23: Arterial Blood pH 7.225*L, Arterial Blood Partial Pressure CO2 28.9L, Arterial Blood Partial Pressure O2 150.9H, Arterial Blood HCO3 11.7L, Arterial Blood Oxygen Saturation 98.6H, Arterial Blood Base Excess -14.5, Sandoval Test Positive Height (Feet): 5 Height (Inches): 5.00 Weight (Pounds): 120 General Appearance: no apparent distress EENT: normal ENT inspection Neck: normal alignment Cardiovascular: normal peripheral pulses Respiratory/Chest: lungs clear Abdomen: non tender Edema: no edema noted Pedal (L), no edema noted Pedal (R) 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
[2016-11-06] MEDS ORDERED: levETIRAcetam 1,000 MG in D5W 110 ML IV ONE (18:30)
[2016-11-06 20:00] VITALS: BP 109/73
--- NOTE | 2016-11-06 21:57 | General Progress Note ---
Assessment/Plan Assessment/Plan Assessment - resolved AMS - resolved abnormal bili - Scabies - dehydration Recommendation - IVF - supportive care - PO diet - OOB - Neuro follow up Subjective Allergies: Coded Allergies: No Known Allergies (Unverified , 10/30/16) Subjective Transferred to [facility] for seizure good PO Objective Last 24 Hour Vital Signs Date Time Temp Pulse Resp B/P Pulse Ox O2 Delivery O2 Flow Rate FiO2 11/06/16 20:00 99.1 82 18 109/73 99 Room Air 11/06/16 16:00 98.8 88 18 110/73 99 Room Air 11/06/16 16:00 88 11/06/16 12:00 86 11/06/16 12:00 97.6 90 25 112/42 99 Room Air 11/06/16 08:00 98.4 83 20 114/76 100 Room Air 11/06/16 08:00 84 11/06/16 04:00 94 11/06/16 04:00 99.0 94 20 130/90 99 Room Air 11/06/16 00:09 97.7 63 18 109/67 99 Room Air Intake and Output 11/05/16 11/06/16 19:00 07:00 Intake Total 400 ml Output Total 200 ml Balance 400 ml -200 ml Intake Oral 400 ml Output Urine Total 200 ml # Voids 6 # Bowel Movements 1 Laboratory Tests 11/06/16 02:23: Arterial Blood pH 7.225*L, Arterial Blood Partial Pressure CO2 28.9L, Arterial Blood Partial Pressure O2 150.9H, Arterial Blood HCO3 11.7L, Arterial Blood Oxygen Saturation 98.6H, Arterial Blood Base Excess -14.5, Sandoval Test Positive Height (Feet): 5 Height (Inches): 5.00 Weight (Pounds): 120 Objective man , NAD NCAT supple CTA RRR Soft NT ND No edema JANAKCHAD Nov 06, 2016 21:57
[2016-11-07] VITALS (7 sets, daily range): BP systolic 104–117; BP diastolic 61–78
[2016-11-07] MEDS: Thiamine 100mg tab ORAL SCH (08:58)
[2016-11-07 09:46] LABS: BASOPHILS % (AUTO) 1.8 % (0.0-2.0); EOSINOPHILS % (AUTO) 18.5 % (0.0-3.0); LYMPHOCYTES % (AUTO) 29.9 % (20.0-45.0); MEAN CORPUSCULAR HEMOGLOBIN 32.7 PG (27.0-31.0); MEAN CORPUSCULAR HGB CONC 33.3 G/DL (32.0-36.0); MEAN CORPUSCULAR VOLUME 98 FL (80-99); MEAN PLATELET VOLUME 7.4 FL (6.5-10.1); MONOCYTES % (AUTO) 14.3 % (1.0-10.0); NEUTROPHILS % (AUTO) 35.5 % (45.0-75.0); PLATELET COUNT 207 K/UL (150-450); RED BLOOD COUNT 3.87 M/UL (4.70-6.10); RED CELL DISTRIBUTION WIDTH 13.1 % (11.6-14.8); WHITE BLOOD COUNT 4.4 K/UL (4.8-10.8)
--- NOTE | 2016-11-07 09:53 | General Progress Note ---
Assessment/Plan Status: stable Assessment/Plan status: Dehydration- resolved Encephalopathy- ? Sepsis UTI Scabies Plan: today's lab pending ??DC planning? Subjective ROS Limited/Unobtainable: No Constitutional: Reports: malaise Allergies: Coded Allergies: No Known Allergies (Unverified , 10/30/16) Objective Last 24 Hour Vital Signs Date Time Temp Pulse Resp B/P Pulse Ox O2 Delivery O2 Flow Rate FiO2 11/07/16 08:00 97.5 71 18 108/78 100 Room Air 11/07/16 04:00 97.7 65 20 110/74 100 Room Air 11/07/16 04:00 74 11/07/16 00:00 59 11/07/16 00:00 98.0 62 20 117/68 99 Room Air 11/06/16 20:00 82 11/06/16 20:00 99.1 82 18 109/73 99 Room Air 11/06/16 16:00 98.8 88 18 110/73 99 Room Air 11/06/16 16:00 88 11/06/16 12:00 86 11/06/16 12:00 97.6 90 25 112/42 99 Room Air Intake and Output 11/06/16 11/07/16 19:00 07:00 Intake Total 400 ml 360 ml Output Total 300 ml Balance 400 ml 60 ml Intake Oral 400 ml 360 ml Output Urine Total 300 ml # Voids 2 Laboratory Tests 11/07/16 08:50: White Blood Count 4.4L, Red Blood Count 3.87L, Hemoglobin 12.7L, Hematocrit 38.0L, Mean Corpuscular Volume 98, Mean Corpuscular Hemoglobin 32.7H, Mean Corpuscular Hemoglobin Concent 33.3, Red Cell Distribution Width 13.1, Platelet Count 207, Mean Platelet Volume 7.4, Neutrophils (%) (Auto) 35.5L, Lymphocytes ( %) (Auto) 29.9, Monocytes (%) (Auto) 14.3H, Eosinophils (%) (Auto) 18.5H, Basophils (%) (Auto) 1.8, Sodium Level [Pending], Potassium Level [Pending], Chloride Level [Pending], Carbon Dioxide Level [Pending], Blood Urea Nitrogen [ Pending], Creatinine [Pending], Estimat Glomerular Filtration Rate [Pending], Glucose Level [Pending], Calcium Level [Pending], Phosphorus Level [Pending], Magnesium Level [Pending], Total Bilirubin [Pending], Aspartate Amino Transf ( AST/SGOT) [Pending], Alanine Aminotransferase (ALT/SGPT) [Pending], Alkaline Phosphatase [Pending], C-Reactive Protein, Quantitative [Pending], Pro-B-Type Natriuretic Peptide [Pending], Total Protein [Pending], Albumin [Pending], Globulin [Pending] Height (Feet): 5 Height (Inches): 5.00 Weight (Pounds): 120 General Appearance: no apparent distress Objective no change IZABELLA TURCIOS Nov 07, 2016 09:53
[2016-11-07 09:55] LABS: ALANINE AMINOTRANSFERASE 11 U/L (3-41); ALBUMIN/GLOBULIN RATIO 1.3 (1.0-2.7); ANION GAP 14 (5-15); ASPARTATE AMINO TRANSFERASE 11 U/L (5-40); CALCIUM 9.6 mg/dL (8.6-10.2); CARBON DIOXIDE 28 mEQ/L (20-30); CHLORIDE 97 mEQ/L (98-107); CREATININE 0.9 mg/dL (0.7-1.2); CRP QUANT 0.6 mg/dL (< 0.5); GLOMERULAR FILTRATION RATE > 60 mL/min (>60); HEMOLYSIS 3; MAGNESIUM 1.8 mg/dL (1.7-2.5); PHOSPHORUS 3.5 mg/dL (2.5-4.8); POTASSIUM 3.7 mEQ/L (3.4-4.9); SODIUM 139 mEQ/L (135-145); TOTAL PROTEIN 7.6 g/dL (6.6-8.7)
--- NOTE | 2016-11-07 10:37 | General Progress Note ---
Assessment/Plan Problem List: (1) Altered mental status ICD Codes: R41.82 - Altered mental status, unspecified SNOMED: 462415356 (2) Encephalopathy acute ICD Codes: G93.40 - Encephalopathy, unspecified SNOMED: 4800138 (3) Sepsis ICD Codes: A41.9 - Sepsis, unspecified organism SNOMED: 57669763 Qualifiers: Qualified Codes: A41.9 - Sepsis, unspecified organism Status: progressing Assessment/Plan ams had seizure so rapid resonse was called and no sz today need to find safe placement for him Subjective ROS Limited/Unobtainable: Yes Constitutional: Reports: no symptoms Allergies: Coded Allergies: No Known Allergies (Unverified , 10/30/16) Objective Last 24 Hour Vital Signs Date Time Temp Pulse Resp B/P Pulse Ox O2 Delivery O2 Flow Rate FiO2 11/07/16 08:00 97.5 71 18 108/78 100 Room Air 11/07/16 07:37 74 11/07/16 04:00 97.7 65 20 110/74 100 Room Air 11/07/16 04:00 74 11/07/16 00:00 59 11/07/16 00:00 98.0 62 20 117/68 99 Room Air 11/06/16 20:00 82 11/06/16 20:00 99.1 82 18 109/73 99 Room Air 11/06/16 16:00 98.8 88 18 110/73 99 Room Air 11/06/16 16:00 88 11/06/16 12:00 86 11/06/16 12:00 97.6 90 25 112/42 99 Room Air Intake and Output 11/06/16 11/07/16 19:00 07:00 Intake Total 400 ml 360 ml Output Total 300 ml Balance 400 ml 60 ml Intake Oral 400 ml 360 ml Output Urine Total 300 ml # Voids 2 Laboratory Tests 11/07/16 08:50: White Blood Count 4.4L, Red Blood Count 3.87L, Hemoglobin 12.7L, Hematocrit 38.0L, Mean Corpuscular Volume 98, Mean Corpuscular Hemoglobin 32.7H, Mean Corpuscular Hemoglobin Concent 33.3, Red Cell Distribution Width 13.1, Platelet Count 207, Mean Platelet Volume 7.4, Neutrophils (%) (Auto) 35.5L, Lymphocytes ( %) (Auto) 29.9, Monocytes (%) (Auto) 14.3H, Eosinophils (%) (Auto) 18.5H, Basophils (%) (Auto) 1.8, Sodium Level 139, Potassium Level 3.7, Chloride Level 97L, Carbon Dioxide Level 28, Anion Gap 14, Blood Urea Nitrogen 9, Creatinine 0.9, Estimat Glomerular Filtration Rate > 60, Glucose Level 105, Calcium Level 9.6, Phosphorus Level 3.5, Magnesium Level 1.8, Total Bilirubin 0.4, Aspartate Amino Transf (AST/SGOT) 11, Alanine Aminotransferase (ALT/SGPT) 11, Alkaline Phosphatase 68, C-Reactive Protein, Quantitative 0.6H, Pro-B-Type Natriuretic Peptide 27, Total Protein 7.6, Albumin 4.3, Globulin 3.3, Albumin/Globulin Ratio 1.3 Height (Feet): 5 Height (Inches): 5.00 Weight (Pounds): 120 General Appearance: confused Neck: supple Cardiovascular: normal rate Respiratory/Chest: lungs clear Long Roman MD Nov 07, 2016 10:37
--- NOTE | 2016-11-07 11:27 | Pulmonology Progress Note ---
Assessment/Plan Problems: (1) Seizure (2) Scabies (3) Altered mental status Assessment/Plan improving cxr reviewe, was negative no more seizure Subjective ROS Limited/Unobtainable: No Constitutional: Reports: no symptoms HEENT: Repors: no symptoms Allergies: Coded Allergies: No Known Allergies (Unverified , 10/30/16) Objective Last 24 Hour Vital Signs Date Time Temp Pulse Resp B/P Pulse Ox O2 Delivery O2 Flow Rate FiO2 11/07/16 08:00 97.5 71 18 108/78 100 Room Air 11/07/16 07:37 74 11/07/16 04:00 97.7 65 20 110/74 100 Room Air 11/07/16 04:00 74 11/07/16 00:00 59 11/07/16 00:00 98.0 62 20 117/68 99 Room Air 11/06/16 20:00 82 11/06/16 20:00 99.1 82 18 109/73 99 Room Air 11/06/16 16:00 98.8 88 18 110/73 99 Room Air 11/06/16 16:00 88 11/06/16 12:00 86 11/06/16 12:00 97.6 90 25 112/42 99 Room Air Intake and Output 11/06/16 11/07/16 19:00 07:00 Intake Total 400 ml 360 ml Output Total 300 ml Balance 400 ml 60 ml Intake Oral 400 ml 360 ml Output Urine Total 300 ml # Voids 2 General Appearance: WD/WN Respiratory/Chest: chest wall non-tender, lungs clear Cardiovascular: normal peripheral pulses, normal rate Abdomen: normal bowel sounds, soft, non tender Genitourinary: normal external genitalia Extremities: no cyanosis Skin: no rash, no lesions Laboratory Tests 11/07/16 08:50: White Blood Count 4.4L, Red Blood Count 3.87L, Hemoglobin 12.7L, Hematocrit 38.0L, Mean Corpuscular Volume 98, Mean Corpuscular Hemoglobin 32.7H, Mean Corpuscular Hemoglobin Concent 33.3, Red Cell Distribution Width 13.1, Platelet Count 207, Mean Platelet Volume 7.4, Neutrophils (%) (Auto) 35.5L, Lymphocytes ( %) (Auto) 29.9, Monocytes (%) (Auto) 14.3H, Eosinophils (%) (Auto) 18.5H, Basophils (%) (Auto) 1.8, Sodium Level 139, Potassium Level 3.7, Chloride Level 97L, Carbon Dioxide Level 28, Anion Gap 14, Blood Urea Nitrogen 9, Creatinine 0.9, Estimat Glomerular Filtration Rate > 60, Glucose Level 105, Calcium Level 9.6, Phosphorus Level 3.5, Magnesium Level 1.8, Total Bilirubin 0.4, Aspartate Amino Transf (AST/SGOT) 11, Alanine Aminotransferase (ALT/SGPT) 11, Alkaline Phosphatase 68, C-Reactive Protein, Quantitative 0.6H, Pro-B-Type Natriuretic Peptide 27, Total Protein 7.6, Albumin 4.3, Globulin 3.3, Albumin/Globulin Ratio 1.3 Current Medications Medications (Trade) Dose Ordered Sig/Gi Route PRN Reason Start Time Stop Time Status Last Admin Dose Admin Acetaminophen (Tylenol) 650 mg Q4H PRN RECTAL Fever/Headache/Mild Pain 11/06/16 03:58 12/06/16 03:57 Ergocalciferol (Drisdol) 50,000 intlu QWEEK ORAL 11/09/16 11:00 12/09/16 10:59 Folic Acid (Folate) 2 mg DAILY ORAL 11/06/16 09:00 12/06/16 08:59 11/07/16 08:58 Levetiracetam (Keppra) 750 mg Q12HR ORAL 11/07/16 09:00 12/07/16 08:59 11/07/16 08:58 Lorazepam (Ativan 2mg/ml 1ml) 1 mg Q2H PRN IV For Seizures 11/06/16 04:00 11/13/16 03:59 Lorazepam (Ativan) 1 mg Q6H PRN ORAL For agitation 11/06/16 03:59 11/13/16 03:58 Risperidone (RisperDAL) 2 mg QHS ORAL 11/06/16 21:00 12/06/16 20:59 11/06/16 20:40 Thiamine HCl (Vitamin B1) 100 mg DAILY ORAL 11/06/16 09:00 12/06/16 08:59 11/07/16 08:58 LORENA BROWN Nov 07, 2016 11:27
--- NOTE | 2016-11-07 13:19 | Neurology Progress Note ---
Interim History Interim History Interim History Mr. Pozo feels well. He has had no further seizures. He continues to have severe amnesia and cannot remember the circumstances that brought him to the hospital. He continues to be guarded. He continues to be cognitively impoverished. He denies any new neurologic symptoms. Review of Systems Neuro Review of Systems Benign. Objective Physical Exam Last Vital Signs Date Time Temp Pulse Resp B/P Pulse Ox O2 Delivery O2 Flow Rate FiO2 11/07/16 12:01 97.2 75 18 111/71 99 Room Air Laboratory Tests Test 11/07/16 08:50 White Blood Count 4.4 K/UL (4.8-10.8) L Red Blood Count 3.87 M/UL (4.70-6.10) L Hemoglobin 12.7 G/DL (14.2-18.0) L Hematocrit 38.0 % (42.0-52.0) L Mean Corpuscular Volume 98 FL (80-99) Mean Corpuscular Hemoglobin 32.7 PG (27.0-31.0) H Mean Corpuscular Hemoglobin Concent 33.3 G/DL (32.0-36.0) Red Cell Distribution Width 13.1 % (11.6-14.8) Platelet Count 207 K/UL (150-450) Mean Platelet Volume 7.4 FL (6.5-10.1) Neutrophils (%) (Auto) 35.5 % (45.0-75.0) L Lymphocytes (%) (Auto) 29.9 % (20.0-45.0) Monocytes (%) (Auto) 14.3 % (1.0-10.0) H Eosinophils (%) (Auto) 18.5 % (0.0-3.0) H Basophils (%) (Auto) 1.8 % (0.0-2.0) Sodium Level 139 mEQ/L (135-145) Potassium Level 3.7 mEQ/L (3.4-4.9) Chloride Level 97 mEQ/L (98-107) L Carbon Dioxide Level 28 mEQ/L (20-30) Anion Gap 14 (5-15) Blood Urea Nitrogen 9 mg/dL (7-23) Creatinine 0.9 mg/dL (0.7-1.2) Estimat Glomerular Filtration Rate > 60 mL/min (>60) Glucose Level 105 mg/dL (74-106) Calcium Level 9.6 mg/dL (8.6-10.2) Phosphorus Level 3.5 mg/dL (2.5-4.8) Magnesium Level 1.8 mg/dL (1.7-2.5) Total Bilirubin 0.4 mg/dL (0.0-1.2) Aspartate Amino Transf (AST/SGOT) 11 U/L (5-40) Alanine Aminotransferase (ALT/SGPT) 11 U/L (3-41) Alkaline Phosphatase 68 U/L (40-129) C-Reactive Protein, Quantitative 0.6 mg/dL (< 0.5) H Pro-B-Type Natriuretic Peptide 27 pg/mL (0-125) Total Protein 7.6 g/dL (6.6-8.7) Albumin 4.3 g/dL (3.5-5.2) Globulin 3.3 g/dL Albumin/Globulin Ratio 1.3 (1.0-2.7) Neurologic Exam Objective PHYSICAL EXAMINATION: GENERAL: He is a well-developed, relatively well-nourished, sunburnt, gentleman, lying in bed, in no acute distress. HEAD: Normocephalic and atraumatic. EENT: Examination benign. NECK: No neck rigidity was observed. NEUROLOGIC EXAMINATION: MENTAL STATUS EXAMINATION: He was awake and alert. He was oriented to self and hospital. He did not know the name of the hospital and had no idea what the date, month or year was. He was able to recall 3/3 words immediately, but could not remember any of them in 1 minute and 3 minutes. He was unable to tell me who the present President was and who prior presidents were. He was unable to do simple mathematical problems. He was unable to tell me how to get from one place to the country to another. SPEECH: He had no dysarthria. LANGUAGE: He had problems with comprehension, repetition and expression of language. CRANIAL NERVE EXAMINATION: II: The visual li were intact to confrontation testing. III, IV & : External ocular movements were full and the pupils 3 mm in diameter, equal, round, regular and reactive to light. V: He had normal facial sensations and the temporales, masseters, and pterygoids functioned normally. VII: He had a trace left VII central facial paresis. VIII: He was able to hear well and had no nystagmus. IX: The palate moved symmetrically on phonation. X: He had no hoarseness of voice. XI: The sternocleidomastoids and trapezii functioned normally. XII: His tongue was in midline without any fasciculations or atrophy. MOTOR SYSTEM: The tone was normal in all four extremities. Examination of muscle mass revealed no focal wasting. Examination of power was exceedingly difficult to perform because of varying degrees of cooperation. He, however moved all four extremities with some generalized weakness and significantly poor effort. SENSORY EXAMINATION: He responded appropriately to deep pain. He was unable to cooperate for the sensory modalities. REFLEXES: Trace+ and bilaterally symmetrical at the biceps, triceps, brachioradialis, and knees. 0 at both ankles. The plantar responses were flexor bilaterally. STANCE & GAIT: Could not be tested. Impression/Recommendations Diagnostic Impression 1. Mr. Jai Pozo is a 51-year-old, right-handed, gentleman, who does have a past history of hypertension, depression, alcoholism and homelessness, who was brought into the [facility] emergency room by paramedics when he was found on the streets behaving in an unusual manner with his clothes soiled with urine. Since he has been here, his mental state has improved. 2. He feels well toaday and has been seizure-free. He has significant cognitive dysfunction. 3. On neurological examination, at this time, he is oriented to self only and exhibits global cerebral dysfunction. He also has a trace left VII central facial paresis, is generally weak and has globally diminished reflexes. 4. Laboratory data on admission revealed that he had a significant leukocytosis with a WBC count of 11.6. The leukocytosis has now resolved with a WBC count of 8.2. His chemistry panel revealed an anion gap of 18, glucose elevated to 148, uric acid elevated to 8.1, CK elevated to 217, C-reactive protein elevated to 3.3, ProBNP elevated to 2842. A low B12 level at 330 and a normal TSH. His urine analysis revealed 2+ leukocyte esterase, 2-4 red blood cells and 5-10 white blood cells per high-power field. His toxicology screen was negative and his serum alcohol level is less than 10. 5. His CSF revealed 3620 red blood cells in tube #1 and 415 red blood cells in tube #4. The white blood cells were 25 in tube # 1 and 1 in tube #4. The protein was 35 and glucose was 81. 6. A CT scan of the brain without contrast revealed significant atrophy and in addition hydrocephalus ex vacuo with the right lateral ventricle larger than the left. 7. The patient's history, neurological examination, laboratory data and imaging studies are most compatible with resolving encephalopathy due to alcohol withdrawal and an infection, superimposed on an old psychiatric illness and/or alcoholic dementia. In addition, he also has a urinary tract infection and is B12 deficient. 8. He was noted to have a witnessed generalized tonic clonic seizure by his nurse on 11/06/16. Recommendations 1. Continue present management. 2. Continue to treat the patient's infectious process in an aggressive manner. 3. Vitamin B12 1000 mcg subcutaneously monthly. 4. Mobilize with physical and occupational therapy. 5. Keppra 750 mg q 12 hours. 6. Can be discharged from neurologic point of view. Lilian Montes M.D., M.S.P.LILIAN TATE Nov 07, 2016 13:19
--- NOTE | 2016-11-07 13:53 | Diagnostic Imaging Report ---
Indication: DYSPNEA Technique: One view of the chest Comparison: 11/01/16 Findings: Calcific fibronodular scarring is seen in the right lung apex. Lungs and pleural spaces are otherwise clear. Heart size is normal. There is no significant interim change Impression: No acute process. Stable findings as described This agrees with the preliminary interpretation provided overnight by Dr. Calixto
[2016-11-07] MEDS ORDERED: Acetaminophen 650 MG SUPP RECTAL PRN ×2 (14:00→22:00)
[2016-11-07] MEDS ORDERED: LORazepam Inj 2mg/ml 1ml IV PRN ×2 (14:00→22:00)
[2016-11-07] MEDS ORDERED: LORazepam 1mg tab ORAL PRN ×2 (16:00→22:00)
--- NOTE | 2016-11-07 16:03 | Infectious Diseases Prog Note ---
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 Subjective Constitutional: Reports: no symptoms HEENT: Reports: no symptoms Respiratory: Reports: no symptoms Breasts: Reports: no symptoms Cardiovascular: Reports: no symptoms Gastrointestinal/Abdominal: Reports: no symptoms Genitourinary: Reports: no symptoms Neurologic: Reports: no symptoms Psychiatric: Reports: no symptoms Skin: Reports: no symptoms Endocrine: Reports: no symptoms Hematologic: Reports: no symptoms Allergies: Coded Allergies: No Known Allergies (Unverified , 10/30/16) Subjective he was awake and alert , Portuguese speaker, not in distress Objective Vital Signs Last 24 Hour Vital Signs Date Time Temp Pulse Resp B/P Pulse Ox O2 Delivery O2 Flow Rate FiO2 11/07/16 12:01 97.2 75 18 111/71 99 Room Air 11/07/16 11:25 76 11/07/16 08:00 97.5 71 18 108/78 100 Room Air 11/07/16 07:37 74 11/07/16 04:00 97.7 65 20 110/74 100 Room Air 11/07/16 04:00 74 11/07/16 00:00 59 11/07/16 00:00 98.0 62 20 117/68 99 Room Air 11/06/16 20:00 82 11/06/16 20:00 99.1 82 18 109/73 99 Room Air Height (Feet): 5 Height (Inches): 5.00 Weight (Pounds): 120 General Appearance: WD/WN, no acute distress HEENT: normocephalic, atraumatic, anicteric, mucous membranes moist Respiratory/Chest: chest wall non-tender, lungs clear, normal breath sounds, no respiratory distress, no accessory muscle use, decreased breath sounds Cardiovascular: normal peripheral pulses, normal rate, regular rhythm, no gallop/murmur Abdomen: normal bowel sounds, soft, non tender, no organomegaly, non distended , no mass Extremities: no cyanosis, no clubbing Skin: no rash, no lesions Laboratory Tests Test 11/07/16 08:50 White Blood Count 4.4 K/UL (4.8-10.8) L Red Blood Count 3.87 M/UL (4.70-6.10) L Hemoglobin 12.7 G/DL (14.2-18.0) L Hematocrit 38.0 % (42.0-52.0) L Mean Corpuscular Volume 98 FL (80-99) Mean Corpuscular Hemoglobin 32.7 PG (27.0-31.0) H Mean Corpuscular Hemoglobin Concent 33.3 G/DL (32.0-36.0) Red Cell Distribution Width 13.1 % (11.6-14.8) Platelet Count 207 K/UL (150-450) Mean Platelet Volume 7.4 FL (6.5-10.1) Neutrophils (%) (Auto) 35.5 % (45.0-75.0) L Lymphocytes (%) (Auto) 29.9 % (20.0-45.0) Monocytes (%) (Auto) 14.3 % (1.0-10.0) H Eosinophils (%) (Auto) 18.5 % (0.0-3.0) H Basophils (%) (Auto) 1.8 % (0.0-2.0) Sodium Level 139 mEQ/L (135-145) Potassium Level 3.7 mEQ/L (3.4-4.9) Chloride Level 97 mEQ/L (98-107) L Carbon Dioxide Level 28 mEQ/L (20-30) Anion Gap 14 (5-15) Blood Urea Nitrogen 9 mg/dL (7-23) Creatinine 0.9 mg/dL (0.7-1.2) Estimat Glomerular Filtration Rate > 60 mL/min (>60) Glucose Level 105 mg/dL (74-106) Calcium Level 9.6 mg/dL (8.6-10.2) Phosphorus Level 3.5 mg/dL (2.5-4.8) Magnesium Level 1.8 mg/dL (1.7-2.5) Total Bilirubin 0.4 mg/dL (0.0-1.2) Aspartate Amino Transf (AST/SGOT) 11 U/L (5-40) Alanine Aminotransferase (ALT/SGPT) 11 U/L (3-41) Alkaline Phosphatase 68 U/L (40-129) C-Reactive Protein, Quantitative 0.6 mg/dL (< 0.5) H Pro-B-Type Natriuretic Peptide 27 pg/mL (0-125) Total Protein 7.6 g/dL (6.6-8.7) Albumin 4.3 g/dL (3.5-5.2) Globulin 3.3 g/dL Albumin/Globulin Ratio 1.3 (1.0-2.7) Current Medications Medications (Trade) Dose Ordered Sig/Gi Route PRN Reason Start Time Stop Time Status Last Admin Dose Admin Acetaminophen (Tylenol) 650 mg Q4H PRN RECTAL Fever/Headache/Mild Pain 11/07/16 14:00 12/07/16 13:59 Ergocalciferol (Drisdol) 50,000 intlu QWEEK ORAL 11/09/16 11:00 12/09/16 10:59 Folic Acid (Folate) 2 mg DAILY ORAL 11/08/16 09:00 12/08/16 08:59 Levetiracetam (Keppra) 750 mg Q12HR ORAL 11/07/16 21:00 12/07/16 20:59 Lorazepam (Ativan 2mg/ml 1ml) 1 mg Q2H PRN IV For Seizures 11/07/16 14:00 11/14/16 13:59 Lorazepam (Ativan) 1 mg Q6H PRN ORAL For agitation 11/07/16 16:00 11/14/16 15:59 Risperidone (RisperDAL) 2 mg QHS ORAL 11/07/16 21:00 12/07/16 20:59 Thiamine HCl (Vitamin B1) 100 mg DAILY ORAL 11/08/16 09:00 12/08/16 08:59 Jair Cohen M.D. Nov 07, 2016 16:03
--- NOTE | 2016-11-07 20:23 | General Progress Note ---
Assessment/Plan Assessment/Plan ASSESSMENT AND PLAN: # Thrombocytopenia is likely related to underlying infection v medication induced ---> hepatitis and hiv are negative ---> has improved # Anemia of chronic disease, has been reviewed with an anemia w/u, currently negative ---> h/h currently stable # Sepsis. on abx as per ID service # Altered mental status, rule out meningitis. Status post lumbar puncture # Possible scabies # Left elbow and left foot skin infection with possible abscess, s/p drainage Subjective Constitutional: Reports: no symptoms HEENT: Reports: no symptoms Cardiovascular: Reports: no symptoms Respiratory: Reports: no symptoms Gastrointestinal/Abdominal: Reports: no symptoms Genitourinary: Reports: no symptoms Neurologic/Psychiatric: Reports: no symptoms Endocrine: Reports: no symptoms Allergies: Coded Allergies: No Known Allergies (Unverified , 10/30/16) Subjective alert, amharic-speaking, NAD Objective Last 24 Hour Vital Signs Date Time Temp Pulse Resp B/P Pulse Ox O2 Delivery O2 Flow Rate FiO2 11/07/16 20:00 98.1 73 19 104/74 93 Room Air 11/07/16 16:00 97.3 73 18 108/61 99 Room Air 11/07/16 15:37 69 11/07/16 12:01 97.2 75 18 111/71 99 Room Air 11/07/16 11:25 76 11/07/16 08:00 97.5 71 18 108/78 100 Room Air 11/07/16 07:37 74 11/07/16 04:00 97.7 65 20 110/74 100 Room Air 11/07/16 04:00 74 11/07/16 00:00 59 11/07/16 00:00 98.0 62 20 117/68 99 Room Air Intake and Output 11/06/16 11/07/16 19:00 07:00 Intake Total 400 ml 360 ml Output Total 300 ml Balance 400 ml 60 ml Intake Oral 400 ml 360 ml Output Urine Total 300 ml # Voids 2 Laboratory Tests 11/07/16 08:50: White Blood Count 4.4L, Red Blood Count 3.87L, Hemoglobin 12.7L, Hematocrit 38.0L, Mean Corpuscular Volume 98, Mean Corpuscular Hemoglobin 32.7H, Mean Corpuscular Hemoglobin Concent 33.3, Red Cell Distribution Width 13.1, Platelet Count 207, Mean Platelet Volume 7.4, Neutrophils (%) (Auto) 35.5L, Lymphocytes ( %) (Auto) 29.9, Monocytes (%) (Auto) 14.3H, Eosinophils (%) (Auto) 18.5H, Basophils (%) (Auto) 1.8, Sodium Level 139, Potassium Level 3.7, Chloride Level 97L, Carbon Dioxide Level 28, Anion Gap 14, Blood Urea Nitrogen 9, Creatinine 0.9, Estimat Glomerular Filtration Rate > 60, Glucose Level 105, Calcium Level 9.6, Phosphorus Level 3.5, Magnesium Level 1.8, Total Bilirubin 0.4, Aspartate Amino Transf (AST/SGOT) 11, Alanine Aminotransferase (ALT/SGPT) 11, Alkaline Phosphatase 68, C-Reactive Protein, Quantitative 0.6H, Pro-B-Type Natriuretic Peptide 27, Total Protein 7.6, Albumin 4.3, Globulin 3.3, Albumin/Globulin Ratio 1.3 Height (Feet): 5 Height (Inches): 5.00 Weight (Pounds): 120 General Appearance: no apparent distress EENT: normal ENT inspection Cardiovascular: normal rate Respiratory/Chest: chest wall non-tender Abdomen: non tender Edema: no edema noted Pedal (L), no edema noted Pedal (R) Edema: mild edema Neurologic: alert Skin: warm/dry Eliu Vela Nov 07, 2016 20:23
--- NOTE | 2016-11-07 23:12 | General Progress Note ---
Assessment/Plan Assessment/Plan Assessment - resolved AMS - resolved abnormal bili - Scabies - dehydration Recommendation - IVF - supportive care - PO diet - OOB - Neuro follow up Subjective Allergies: Coded Allergies: No Known Allergies (Unverified , 10/30/16) Subjective Transferred to [facility] for seizure good PO Objective Last 24 Hour Vital Signs Date Time Temp Pulse Resp B/P Pulse Ox O2 Delivery O2 Flow Rate FiO2 11/07/16 20:00 98.1 73 19 104/74 93 Room Air 11/07/16 16:00 97.3 73 18 108/61 99 Room Air 11/07/16 15:37 69 11/07/16 12:01 97.2 75 18 111/71 99 Room Air 11/07/16 11:25 76 11/07/16 08:00 97.5 71 18 108/78 100 Room Air 11/07/16 07:37 74 11/07/16 04:00 97.7 65 20 110/74 100 Room Air 11/07/16 04:00 74 11/07/16 00:00 59 11/07/16 00:00 98.0 62 20 117/68 99 Room Air Intake and Output 11/06/16 11/07/16 19:00 07:00 Intake Total 400 ml 360 ml Output Total 300 ml Balance 400 ml 60 ml Intake Oral 400 ml 360 ml Output Urine Total 300 ml # Voids 2 Laboratory Tests 11/07/16 08:50: White Blood Count 4.4L, Red Blood Count 3.87L, Hemoglobin 12.7L, Hematocrit 38.0L, Mean Corpuscular Volume 98, Mean Corpuscular Hemoglobin 32.7H, Mean Corpuscular Hemoglobin Concent 33.3, Red Cell Distribution Width 13.1, Platelet Count 207, Mean Platelet Volume 7.4, Neutrophils (%) (Auto) 35.5L, Lymphocytes ( %) (Auto) 29.9, Monocytes (%) (Auto) 14.3H, Eosinophils (%) (Auto) 18.5H, Basophils (%) (Auto) 1.8, Sodium Level 139, Potassium Level 3.7, Chloride Level 97L, Carbon Dioxide Level 28, Anion Gap 14, Blood Urea Nitrogen 9, Creatinine 0.9, Estimat Glomerular Filtration Rate > 60, Glucose Level 105, Calcium Level 9.6, Phosphorus Level 3.5, Magnesium Level 1.8, Total Bilirubin 0.4, Aspartate Amino Transf (AST/SGOT) 11, Alanine Aminotransferase (ALT/SGPT) 11, Alkaline Phosphatase 68, C-Reactive Protein, Quantitative 0.6H, Pro-B-Type Natriuretic Peptide 27, Total Protein 7.6, Albumin 4.3, Globulin 3.3, Albumin/Globulin Ratio 1.3 Height (Feet): 5 Height (Inches): 5.00 Weight (Pounds): 120 Objective man , NAD NCAT supple CTA RRR Soft NT ND No edema CHAD BRICENO Nov 07, 2016 23:12
--- NOTE | 2016-11-07 23:55 | General Progress Note ---
Assessment/Plan Assessment/Plan cont risperdal janie rdoriguez Subjective Allergies: Coded Allergies: No Known Allergies (Unverified , 10/30/16) Subjective The patient's mental condition is unchanged since last encounter which was yesterday. the pt is Setswana speaking however he is able to communicate in Ecuadorean. He continues to be calm. AH is improved. He was engaged during the evaluation. the pt knew the president. he knew he was in the hospital, his date of and the reason being treated. his nurse was present in the room as well as one of the staff who speaks Setswana. per nurse he was even more lucid earlier evening. I evaluated him around 10pm. MENTAL STATUS EXAMINATION: The patient is alert and oriented x3. Mood is neutral. Affect is constricted. Congruent with mood. No auditory hallucinations. No suicidal or homicidal ideations. Cognition is impaired. ASSESSMENT: Psychotic disorder. Alcohol dependence. cognitive impairment PLAN: 1. The patient will continue risperidone 2 mg at bedtime. 2. We will continue to follow the patient and readjust the medications. 3.the pt doesn't meet the criteria for hold 4.referral to substance abuse d/o program Objective Last 24 Hour Vital Signs Date Time Temp Pulse Resp B/P Pulse Ox O2 Delivery O2 Flow Rate FiO2 11/07/16 23:44 97.2 67 20 108/74 100 Room Air 11/07/16 20:00 98.1 73 19 104/74 93 Room Air 11/07/16 16:00 97.3 73 18 108/61 99 Room Air 11/07/16 15:37 69 11/07/16 12:01 97.2 75 18 111/71 99 Room Air 11/07/16 11:25 76 11/07/16 08:00 97.5 71 18 108/78 100 Room Air 11/07/16 07:37 74 11/07/16 04:00 97.7 65 20 110/74 100 Room Air 11/07/16 04:00 74 11/07/16 00:00 59 11/07/16 00:00 98.0 62 20 117/68 99 Room Air Intake and Output 11/06/16 11/07/16 19:00 07:00 Intake Total 400 ml 360 ml Output Total 300 ml Balance 400 ml 60 ml Intake Oral 400 ml 360 ml Output Urine Total 300 ml # Voids 2 Laboratory Tests 11/07/16 08:50: White Blood Count 4.4L, Red Blood Count 3.87L, Hemoglobin 12.7L, Hematocrit 38.0L, Mean Corpuscular Volume 98, Mean Corpuscular Hemoglobin 32.7H, Mean Corpuscular Hemoglobin Concent 33.3, Red Cell Distribution Width 13.1, Platelet Count 207, Mean Platelet Volume 7.4, Neutrophils (%) (Auto) 35.5L, Lymphocytes ( %) (Auto) 29.9, Monocytes (%) (Auto) 14.3H, Eosinophils (%) (Auto) 18.5H, Basophils (%) (Auto) 1.8, Sodium Level 139, Potassium Level 3.7, Chloride Level 97L, Carbon Dioxide Level 28, Anion Gap 14, Blood Urea Nitrogen 9, Creatinine 0.9, Estimat Glomerular Filtration Rate > 60, Glucose Level 105, Calcium Level 9.6, Phosphorus Level 3.5, Magnesium Level 1.8, Total Bilirubin 0.4, Aspartate Amino Transf (AST/SGOT) 11, Alanine Aminotransferase (ALT/SGPT) 11, Alkaline Phosphatase 68, C-Reactive Protein, Quantitative 0.6H, Pro-B-Type Natriuretic Peptide 27, Total Protein 7.6, Albumin 4.3, Globulin 3.3, Albumin/Globulin Ratio 1.3 Height (Feet): 5 Height (Inches): 5.00 Weight (Pounds): 120 Kd Palafox M.D. Nov 07, 2016 23:55
[2016-11-08 04:30] VITALS: BP 101/75
[2016-11-08 08:00] VITALS: BP 117/75
[2016-11-08] MEDS: Thiamine 100mg tab ORAL SCH (09:00)
[2016-11-08] MEDS ORDERED: Thiamine 100mg tab ORAL SCH (09:00)
--- NOTE | 2016-11-08 10:19 | General Progress Note ---
Assessment/Plan Problem List: (1) Altered mental status ICD Codes: R41.82 - Altered mental status, unspecified SNOMED: 814920144 (2) Encephalopathy acute ICD Codes: G93.40 - Encephalopathy, unspecified SNOMED: 7954238 (3) Sepsis ICD Codes: A41.9 - Sepsis, unspecified organism SNOMED: 30210839 Qualifiers: Qualified Codes: A41.9 - Sepsis, unspecified organism Status: progressing Assessment/Plan ams reviewed chart and labs no sz today need to find safe placement for him Subjective ROS Limited/Unobtainable: Yes Constitutional: Reports: no symptoms Allergies: Coded Allergies: No Known Allergies (Unverified , 10/30/16) Objective Last 24 Hour Vital Signs Date Time Temp Pulse Resp B/P Pulse Ox O2 Delivery O2 Flow Rate FiO2 11/08/16 08:00 97.2 80 18 117/75 100 Room Air 11/08/16 04:30 97.3 66 20 101/75 100 Nasal Cannula 2.0 11/07/16 23:44 97.2 67 20 108/74 100 Room Air 11/07/16 20:00 98.1 73 19 104/74 93 Room Air 11/07/16 16:00 97.3 73 18 108/61 99 Room Air 11/07/16 15:37 69 11/07/16 12:01 97.2 75 18 111/71 99 Room Air 11/07/16 11:25 76 Intake and Output 11/07/16 11/08/16 19:00 07:00 Intake Total 600 ml Output Total 1200 ml Balance -600 ml Intake Oral 600 ml Output Urine Total 1200 ml # Voids 2 Height (Feet): 5 Height (Inches): 5.00 Weight (Pounds): 120 EENT: PERRL/EOMI Neck: supple Cardiovascular: normal rate Respiratory/Chest: lungs clear Abdomen: soft Long Roman MD Nov 08, 2016 10:19
[2016-11-08 12:00] VITALS: BP 129/88
--- NOTE | 2016-11-08 13:09 | General Progress Note ---
Assessment/Plan Assessment/Plan ASSESSMENT AND PLAN: # Thrombocytopenia is likely related to underlying infection v medication induced ---> hepatitis and hiv are negative ---> has improved # Anemia of chronic disease, has been reviewed with an anemia w/u, currently negative ---> h/h currently stable # Sepsis. treatment per ID service # Altered mental status, rule out meningitis. Status post lumbar puncture ----> resolved # Possible scabies # Left elbow and left foot skin infection with possible abscess, s/p drainage Subjective Constitutional: Reports: no symptoms HEENT: Reports: no symptoms Cardiovascular: Reports: no symptoms Respiratory: Reports: no symptoms Gastrointestinal/Abdominal: Reports: no symptoms Genitourinary: Reports: no symptoms Neurologic/Psychiatric: Reports: no symptoms Endocrine: Reports: no symptoms Hematologic/Lymphatic: Reports: no symptoms Allergies: Coded Allergies: No Known Allergies (Unverified , 10/30/16) Subjective attempted to elope, is belligerent, no fevers or chills Objective Last 24 Hour Vital Signs Date Time Temp Pulse Resp B/P Pulse Ox O2 Delivery O2 Flow Rate FiO2 11/08/16 12:00 97.0 72 18 129/88 Room Air 11/08/16 08:00 97.2 80 18 117/75 100 Room Air 11/08/16 04:30 97.3 66 20 101/75 100 Nasal Cannula 2.0 11/07/16 23:44 97.2 67 20 108/74 100 Room Air 11/07/16 20:00 98.1 73 19 104/74 93 Room Air 11/07/16 16:00 97.3 73 18 108/61 99 Room Air 11/07/16 15:37 69 Intake and Output 11/07/16 11/08/16 19:00 07:00 Intake Total 600 ml Output Total 1200 ml Balance -600 ml Intake Oral 600 ml Output Urine Total 1200 ml # Voids 2 Height (Feet): 5 Height (Inches): 5.00 Weight (Pounds): 120 General Appearance: no apparent distress EENT: normal ENT inspection Neck: normal alignment Cardiovascular: normal rate Respiratory/Chest: chest wall non-tender Extremities: non-tender Edema: no edema noted Pedal (L), no edema noted Pedal (R) Neurologic: cracker off II-XII grossly normal Skin: warm/dry Eliu Vela Nov 08, 2016 13:09
--- NOTE | 2016-11-08 14:30 | General Progress Note ---
Assessment/Plan Status: stable Assessment/Plan status: Dehydration- resolved Encephalopathy- ? Sepsis UTI Scabies Plan: Treatment for lice ?DC planning? Subjective ROS Limited/Unobtainable: No Constitutional: Reports: malaise Allergies: Coded Allergies: No Known Allergies (Unverified , 10/30/16) Objective Last 24 Hour Vital Signs Date Time Temp Pulse Resp B/P Pulse Ox O2 Delivery O2 Flow Rate FiO2 11/08/16 12:00 97.0 72 18 129/88 Room Air 11/08/16 08:00 97.2 80 18 117/75 100 Room Air 11/08/16 04:30 97.3 66 20 101/75 100 Nasal Cannula 2.0 11/07/16 23:44 97.2 67 20 108/74 100 Room Air 11/07/16 20:00 98.1 73 19 104/74 93 Room Air 11/07/16 16:00 97.3 73 18 108/61 99 Room Air 11/07/16 15:37 69 Intake and Output 11/07/16 11/08/16 19:00 07:00 Intake Total 600 ml Output Total 1200 ml Balance -600 ml Intake Oral 600 ml Output Urine Total 1200 ml # Voids 2 Height (Feet): 5 Height (Inches): 5.00 Weight (Pounds): 120 General Appearance: no apparent distress Objective no change IZABELLA TURCIOS Nov 08, 2016 14:30
--- NOTE | 2016-11-08 15:16 | Neurology Progress Note ---
Interim History Interim History Interim History Mr. Pozo feels well. He has had no further seizures. He continues to be forgetful. He continues to be cognitively impoverished. He denies any new neurologic symptoms. Review of Systems Neuro Review of Systems Benign. Objective Physical Exam Last Vital Signs Date Time Temp Pulse Resp B/P Pulse Ox O2 Delivery O2 Flow Rate FiO2 11/08/16 12:00 97.0 72 18 129/88 Room Air 11/08/16 08:00 100 11/08/16 04:30 2.0 Neurologic Exam Objective PHYSICAL EXAMINATION: GENERAL: He is a well-developed, relatively well-nourished, sunburnt, gentleman, walking around in his room, in no acute distress. HEAD: Normocephalic and atraumatic. EENT: Examination benign. NECK: No neck rigidity was observed. NEUROLOGIC EXAMINATION: MENTAL STATUS EXAMINATION: He was awake and alert. He was oriented to self and hospital. He did not know the name of the hospital and had no idea what the date, month or year was. He was able to recall 3/3 words immediately, but could not remember any of them in 1 minute and 3 minutes. He was unable to tell me who the present President was and who prior presidents were. He was unable to do simple mathematical problems. He was unable to tell me how to get from one place to the country to another. SPEECH: He had no dysarthria. LANGUAGE: He was able to comprehend and express himself well CRANIAL NERVE EXAMINATION: II: The visual li were intact to confrontation testing. III, IV & : External ocular movements were full and the pupils 3 mm in diameter, equal, round, regular and reactive to light. V: He had normal facial sensations and the temporales, masseters, and pterygoids functioned normally. VII: He had a trace left VII central facial paresis. VIII: He was able to hear well and had no nystagmus. IX: The palate moved symmetrically on phonation. X: He had no hoarseness of voice. XI: The sternocleidomastoids and trapezii functioned normally. XII: His tongue was in midline without any fasciculations or atrophy. MOTOR SYSTEM: The tone was normal in all four extremities. Examination of muscle mass revealed no focal wasting. He had G 5/5 power in all muscle groups. SENSORY EXAMINATION: He responded appropriately to light touch. He was unable to cooperate for the sensory modalities. REFLEXES: Trace+ and bilaterally symmetrical at the biceps, triceps, brachioradialis, and knees. 0 at both ankles. The plantar responses were flexor bilaterally. STANCE & GAIT: Wide based but stable. Impression/Recommendations Diagnostic Impression 1. Mr. Jai Pozo is a 51-year-old, right-handed, gentleman, who does have a past history of hypertension, depression, alcoholism and homelessness, who was brought into the [facility] emergency room by paramedics when he was found on the streets behaving in an unusual manner with his clothes soiled with urine. Since he has been here, his mental state has improved. 2. He feels well today and has been seizure-free. 3. On neurological examination, at this time, he is oriented to self only and exhibits global cerebral dysfunction. He also has a trace left VII central facial paresis and has globally diminished reflexes. 4. Laboratory data on admission revealed that he had a significant leukocytosis with a WBC count of 11.6. The leukocytosis has now resolved with a WBC count of 8.2. His chemistry panel revealed an anion gap of 18, glucose elevated to 148, uric acid elevated to 8.1, CK elevated to 217, C-reactive protein elevated to 3.3, ProBNP elevated to 2842. A low B12 level at 330 and a normal TSH. His urine analysis revealed 2+ leukocyte esterase, 2-4 red blood cells and 5-10 white blood cells per high-power field. His toxicology screen was negative and his serum alcohol level is less than 10. 5. His CSF revealed 3620 red blood cells in tube #1 and 415 red blood cells in tube #4. The white blood cells were 25 in tube # 1 and 1 in tube #4. The protein was 35 and glucose was 81. 6. A CT scan of the brain without contrast revealed significant atrophy and in addition hydrocephalus ex vacuo with the right lateral ventricle larger than the left. 7. The EEG revealed a moderate encephalopathy but no inter-ictal phenomena. 8. The patient's history, neurological examination, laboratory data, imaging studies and EEG are most compatible with resolving encephalopathy due to alcohol withdrawal and an infection, superimposed on possibly an old psychiatric illness and/or alcoholic dementia. In addition, he also had a urinary tract infection and was B12 deficient. 9. He was noted to have a witnessed generalized tonic clonic seizure by his nurse on 11/06/16. Recommendations 1. Continue present management. 2. Vitamin B12 1000 mcg subcutaneously monthly. 3. Keppra 750 mg q 12 hours. 4. Can be discharged from neurologic point of view. Lilian Montes M.D., M.S.P.[place]. LILIAN MONTES Nov 08, 2016 15:16
[2016-11-08 16:00] VITALS: BP 129/89
--- NOTE | 2016-11-08 16:46 | Electroencephalogram ---
DATE OF PROCEDURE: 11/07/2016 REQUESTING PHYSICIAN: Long Roman M.D. READING PHYSICIAN: Bryce Montes M.D. HISTORY: This EEG was performed on a 51-year-old gentleman, who was hospitalized for an altered mental state. During his hospitalization, he was noted to have a seizure. The purpose of this EEG was to better delineate the type of seizure disorder. TECHNICAL NOTE: This EEG was performed on a [employer] with electrodes placed on the scalp according to the International 10-20 system. [id number] and [id number] montages were used. The EEG was technically satisfactory and was performed in the awake and drowsy states. OBSERVATIONS: During wakefulness, the background activity consisted of 6-7 Hz posterior rhythmic theta activity. Drowsiness was characterized by irregular 4-5 Hz theta with intermixed delta frequencies. No focal abnormalities or epileptiform discharges were seen. IMPRESSION: This is an abnormal EEG characterized by slowing of the background in the 6-7 Hz theta range in the best awake state. COMMENT: This study is consistent with an encephalopathy of a moderate degree. Please note that the absence of interictal discharges does not rule out a seizure disorder. Bryce Montes M.D., M.S.P.H. DR: MENDOZA JOB#: [id number] [facility]
--- NOTE | 2016-11-08 17:15 | Progress Note ---
SUBJECTIVE: The patient presented with confusion and waxing and waning consciousness. During the initial days of hospitalization, however, his delirium has improved. He is able to be engaged in a simple and logical conversation. We offered placement of the patient, because we want to place the patient in a boarding care or half-way. The patient is refusing. He is able to understand the consequences of refusing placement beyond the street. He is a chronic alcohol user and is not interested on rehabilitation. Today, he knew his name, date of , city he is in as well as situation he is in. He knew the year and month. I also spoke with Dr. Montes as well as Dr. Roman. MENTAL STATUS EXAMINATION: The patient is alert and oriented x3. His mood is neutral. Affect is blunted. Congruent with mood. Thought process is concrete. Thought content, there is no suicidal or homicidal ideation. ASSESSMENT: 1. Alcohol dependence. 2. Delirium, improved. 3. Auditory hallucination, improved. He does not endorse any. PLAN: 1. The patient is currently on risperidone 2 mg at bedtime. 2. He is on thiamine and folic acid. 3. He is also on Ativan as needed. Kd Palafox M.D. DR: MARGARITA JOB#: [id number] CC:
[2016-11-08 20:00] VITALS: BP 118/83
--- NOTE | 2016-11-08 22:22 | General Progress Note ---
Assessment/Plan Assessment/Plan Assessment - resolved AMS - resolved abnormal bili - Scabies - dehydration Recommendation - IVF - supportive care - PO diet - OOB - no specific GI issues at this time - will see intermittently Subjective Allergies: Coded Allergies: No Known Allergies (Unverified , 10/30/16) Subjective Feels OK no GI complaints Objective Last 24 Hour Vital Signs Date Time Temp Pulse Resp B/P Pulse Ox O2 Delivery O2 Flow Rate FiO2 11/08/16 20:00 97.9 77 18 118/83 100 Room Air 11/08/16 16:00 97.5 71 19 129/89 100 Room Air 11/08/16 12:00 97.0 72 18 129/88 Room Air 11/08/16 08:00 97.2 80 18 117/75 100 Room Air 11/08/16 04:30 97.3 66 20 101/75 100 Nasal Cannula 2.0 11/07/16 23:44 97.2 67 20 108/74 100 Room Air Intake and Output 11/07/16 11/08/16 19:00 07:00 Intake Total 600 ml Output Total 1200 ml Balance -600 ml Intake Oral 600 ml Output Urine Total 1200 ml # Voids 2 Height (Feet): 5 Height (Inches): 5.00 Weight (Pounds): 120 Objective man , NAD NCAT supple CTA RRR Soft NT ND No edema CHAD BRICENO Nov 08, 2016 22:22
[2016-11-09 00:01] VITALS: BP 126/83
[2016-11-09 04:00] VITALS: BP 116/80
--- NOTE | 2016-11-09 04:42 | Wound Nurse Progress Note ---
Wound RN Progress Note Wound Consult #1 Left elbow pressure ulcer stage IV. #2 Left lateral malleolus suspected deep tissue injury. #3 Right lateral malleolus stage II pressure ulcer. #4 Left plantar aspect of foot unstageable pressure ulcer. Reassessment done. No deterioration noted at this time. will cont same wound care treatment and recommendations. Recommendation. -Local wound care as ordered. -Apply low air loss SPR mattress. -Turn and reposition. -Optimize nutrition. -Heel protectors. -Keep clean and dry. -Avoid shear and friction. -Offload heels and feet. -Assess and f/u accordingly for any changes. XOCHILT LU RN Nov 09, 2016 04:42
[2016-11-09 08:00] VITALS: BP 101/77
[2016-11-09] MEDS: Thiamine 100mg tab ORAL SCH (08:22)
[2016-11-09] MEDS ORDERED: Vitamin D 50,000 units cap ORAL SCH ×3 (11:00)
--- NOTE | 2016-11-09 11:39 | General Progress Note ---
Assessment/Plan Status: stable Assessment/Plan status: Dehydration- resolved Encephalopathy- ? Sepsis UTI Scabies Plan: Treatment for lice ?DC planning? Subjective ROS Limited/Unobtainable: No Allergies: Coded Allergies: No Known Allergies (Unverified , 10/30/16) Objective Last 24 Hour Vital Signs Date Time Temp Pulse Resp B/P Pulse Ox O2 Delivery O2 Flow Rate FiO2 11/09/16 08:00 97.5 84 20 101/77 95 Room Air 11/09/16 04:00 97.2 82 18 116/80 99 Room Air 11/09/16 00:01 98.1 78 18 126/83 100 Room Air 11/08/16 20:00 97.9 77 18 118/83 100 Room Air 11/08/16 16:00 97.5 71 19 129/89 100 Room Air 11/08/16 12:00 97.0 72 18 129/88 Room Air Intake and Output 11/08/16 11/09/16 19:00 07:00 Intake Total 360 ml 360 ml Output Total 950 ml Balance 360 ml -590 ml Intake Oral 360 ml 360 ml Output Urine Total 950 ml # Voids 3 Height (Feet): 5 Height (Inches): 5.00 Weight (Pounds): 120 General Appearance: no apparent distress Objective no change IZABELLA TURCIOS Nov 09, 2016 11:39
[2016-11-09 12:38] VITALS: BP 105/79
[2016-11-09] MEDS ORDERED: Tubing Blood Filter IV ONE (12:59)
[2016-11-09] MEDS ORDERED: NS 275ml ONE (12:59)
[2016-11-09] MEDS ORDERED: Tubing IV Secondary IV ONE (12:59)
--- NOTE | 2016-11-09 21:31 | General Progress Note ---
Assessment/Plan Assessment/Plan ASSESSMENT AND PLAN: # Thrombocytopenia is likely related to underlying infection v medication induced ---> hepatitis and hiv are negative ---> has improved # Anemia of chronic disease, has been reviewed with an anemia w/u, currently negative ---> h/h currently stable # Sepsis. treatment per ID service # Altered mental status, rule out meningitis. Status post lumbar puncture ----> resolved # Possible scabies # Left elbow and left foot skin infection with possible abscess, s/p drainage Subjective Constitutional: Reports: no symptoms HEENT: Reports: no symptoms Cardiovascular: Reports: no symptoms Respiratory: Reports: no symptoms Gastrointestinal/Abdominal: Reports: no symptoms Genitourinary: Reports: no symptoms Neurologic/Psychiatric: Reports: no symptoms Endocrine: Reports: no symptoms Hematologic/Lymphatic: Reports: no symptoms Allergies: Coded Allergies: No Known Allergies (Unverified , 10/30/16) Subjective left AMA, no fevers or chills Objective Last 24 Hour Vital Signs Date Time Temp Pulse Resp B/P Pulse Ox O2 Delivery O2 Flow Rate FiO2 11/09/16 12:38 97.0 85 19 105/79 95 Room Air 11/09/16 08:00 97.5 84 20 101/77 95 Room Air 11/09/16 04:00 97.2 82 18 116/80 99 Room Air 11/09/16 00:01 98.1 78 18 126/83 100 Room Air Intake and Output 11/08/16 11/09/16 19:00 07:00 Intake Total 360 ml 360 ml Output Total 950 ml Balance 360 ml -590 ml Intake Oral 360 ml 360 ml Output Urine Total 950 ml # Voids 3 Height (Feet): 5 Height (Inches): 5.00 Weight (Pounds): 120 General Appearance: no apparent distress EENT: PERRL/EOMI Neck: supple Cardiovascular: normal rate Respiratory/Chest: chest wall non-tender Abdomen: no organomegaly Edema: no edema noted Pedal (L), no edema noted Pedal (R) Neurologic: no motor/sensory deficits Skin: warm/dry Eliu Vela Nov 09, 2016 21:31
--- NOTE | 2016-11-13 09:13 | Discharge Summary ---
Discharge Summary Hospital Course Date of Admission Oct 29, 2016 at 11:18 Date of Discharge Nov 09, 2016 at 13:00 Admitting Diagnosis ALTERD MENTAL STATUS, FEVER HPI Jai Pozo is a 51 year old male who was admitted on Oct 29, 2016 at 11: 18 for Altered Mental Status,Fever Hospital Course dc summary #[id number] Discharge Condition Upon Discharge: stable Discharge Disposition Patient was discharged to AMA Discharge Diagnoses: Discharge Instructions Discharge Instructions Special Instructions I have been assigned to complete a D/C Summary on this account. I was not involved in the patient management Mago Welsh NP ([place]) Nov 13, 2016 09:13
--- NOTE | 2016-11-13 17:30 | Discharge Summary 2 SIG ---
DATE OF ADMISSION: 10/29/2016 DATE OF DISCHARGE: 11/09/2016 REASON FOR ADMISSION: The patient is a 51-year-old male, homeless was brought in from the street due to acting inappropriately. Accu-Chek was 63. The patient was given glucose by mouth since rn intake unable to start IV. The patient was not cooperative. In the emergency department, the patient was afebrile and normotensive. Central line was placed for intravenous access. CT of the head revealed no evidence of acute intracranial pathology. Chest x-ray revealed no acute cardiopulmonary pathology. Lumbar puncture was performed to rule out meningitis and cerebrospinal fluid analysis did not show evidence of meningitis. The patient found to have scabies treated x1 with Elimite. The patient started on the IV fluids due to mild dehydration. The patient admitted for further management. ADMITTING DIAGNOSES: 1. Acute encephalopathy likely secondary to alcohol withdrawal and superimposed infection. 2. Status post lumbar puncture. 3. Possible sepsis. 4. Possible urinary tract infection. 5. Dehydration. HOSPITAL STAY: The patient admitted to [facility]. The patient started on IV fluids. The patient was on empiric antibiotic. ID followed. Blood culture negative. Urine culture negative. The patient also noted to have left elbow infected wound status post drain which improved with the antibiotics. Wound care was continued per wound care nurse recommendation. The patient had a lateral malleoli stage II and left elbow stage IV decubitus ulcers present on admission. Neurologist followed the patient. According to neurologist, the patient's clinical history and physical exam was consistent with acute toxic metabolic encephalopathy secondary to alcohol withdrawal and infection, superimposed on possible old psychiatric disorder and/or alcoholic dementia. Seizure precaution maintained. Keppra was continued. No episodes of seizure activity while in the hospital. The patient found to have B12 deficiency. The patient was given subcutaneous B12 injection, recommended monthly B12 injection to replete B12. Psychiatrist seen and evaluated the patient. Diagnosed the patient with delirium which improved as his clinical condition stabilized. Psychiatrist placed the patient on Risperdal. Renal parameters and electrolytes were closely monitored. Nephrotoxics were avoided. Creatinine and BUN down to normal with IV fluid hydration. Executive Business Coach followed. Hand Bookbinder seen the patient for anemia of chronic disease. Anemia workup initiated. Hemoglobin and hematocrit stable. Hand Bookbinder recommended just to follow up with the hemoglobin and hematocrit. Gastrointestinal specialist followed the patient. The patient initially have abnormal bilirubin which resolved. He recommended supportive care, p.o. diet, out of bed, and no specific gastrointestinal issue at this time. The patient was working with physical and occupational therapy, was waiting for placement, the patient was off antibiotics and monitor clinically. Hepatitis panel was negative. HIV panel was negative. While the patient was waiting for placement since he was homeless, he decided to sign against medical advice. He felt clinical condition is stable. He refused to sign the form. Risks and consequences of leaving against medical advice were explained to the patient. The patient insisted and left. FINAL DIAGNOSES: 1. Acute toxic metabolic encephalopathy secondary to alcohol abuse and infection, superimposed on old psychiatric disease and/or alcoholic dementia. 2. Status post lumbar puncture. 3. Alcoholic dementia. 4. Alcohol abuse. 5. Possible sepsis. 6. Seizure disorder. 7. B12 deficiency. 8. Scabies, status post treatment. 9. Dehydration, resolved. 10. Major depression. 11. Homeless. 12. Anemia of chronic disease. 13. Right lateral malleoli stage II present on admission. 14. Left elbow stage IV, present on admission. 15. Left elbow infected wound status post drain, local wound care continued. The patient signed against medical advice. Long Roman M.D. I have been assigned to dictate discharge summary on this account and I was not involved in the patient's management. Mago Cagephelps memorial hospitalGeoff N.PAsael DR: Byron JOB#: [id number] CC:
== END 2016-11-09 13:00 | disposition left against medical advice (07) | DRG 720 ==
LOC: EDBD 08:13 → EMR 08:41 → EDBEDREQSVC 10:46 → 4E 11:18 → EDBD 11:18 → EDBEDREQ 14:13 → 4E 15:29 → 2W 11-06 03:25 → 4W 11-07 19:46
PROC: 009U3ZX Drainage of Spinal Canal, Percutaneous Approach, Diagnostic (ICD-10-PCS; principal; 2016-10-29)
DX: A41.9 Sepsis, unspecified organism (principal); G92 Toxic encephalopathy; L89.024 Pressure ulcer of left elbow, stage 4; D69.6 Thrombocytopenia, unspecified; F10.27 Alcohol dependence with alcohol-induced persisting dementia; E53.8 Deficiency of other specified B group vitamins; E86.0 Dehydration; B86 Scabies; N39.0 Urinary tract infection, site not specified; Z59.0 Homelessness; F10.239 Alcohol dependence with withdrawal, unspecified; G40.909 Epilepsy, unspecified, not intractable, without status epilepticus; D63.8 Anemia in other chronic diseases classified elsewhere; F32.9 Major depressive disorder, single episode, unspecified; L89.512 Pressure ulcer of right ankle, stage 2; L02.414 Cutaneous abscess of left upper limb
CPT/HCPCS: 36415; 36600; 62270; 70450; 71010; 80053; 80299; 80300; 80329; 81001; 82140; 82248; 82550; 82607; 82746; 82803; 82945; 82962; 82977; 83036; 83605; 83735; 83880; 84100; 84157; 84443; 84484; 84550; 85007; 85025; 85610; 86140; 86703; 86705; 86709; 86803; 87040; 87070; 87081; 87205; 87340; 89051; 93005; 95819; J8499